=== PATIENT | female | born 1970 | race Caucasian/White ===

== ENCOUNTER 2018-08-04 20:20 | Emergency (ER) | payer BC, SELFPAY ==
[2018-08-04 20:23] VITALS: BP 118/79; PULSE 101; RESP 20; TEMP 36.7; O2SAT 99; BMI 43.0
[2018-08-04 20:53] LABS: Absolute Lymphocyte Count 2.86 X10^3/ul (0.83-4.51); Basophil# 0.02 X10^3/uL; Basophil% 0.2 % (0-1); Eosinophil# 0.15 X10^3/uL; Eosinophils% 1.8 % (0-5); Hematocrit 41.7 % (37-47); Hemoglobin 13.8 g/dl (12.0-15.0); Lymphocyte # 2.86 X10^3/ul (4.0); Lymphocyte % 33.8 % (19-41); Mean Corp Hgb Conc 33.1 g/gl (32-36); Mean Corpuscular Hgb 29.1 pg (27.0-32.0); Mean Corpuscular Volume 87.8 fL (81-99); Mean Platelet Vol. 11.1 fl (6.2-12.0); Monocyte# 0.43 X10^3/uL; Monocyte% 5.1 % (0-10); Neutrophil # 4.98 X10^3/uL (2.7-7.7); POSITIVE COUNT NO; POSITIVE DIFFERENTIAL NO; POSITIVE MORPHOLOGY NO; Platelet Count 288 K/mm3 (150-450); RBC Distribution Width CV 13.7 % (11.6-14.6); RBC Distribution Width SD 44.2 fl (35.1-43.9); Red Blood Count 4.75 M/mm3 (4.2-5.4); White Blood Count 8.5 K/mm3 (4.4-11.0)
[2018-08-04 21:00] LABS: Color, Urine Yellow (Yellow); Glucose, Dipstick Normal (Normal); Ketone-Dipstick Negative (Negative); Leukocyte Esterase-Dipstick 25 /ul (Negative); Nitrite-Dipstick Negative (Negative); Occult Blood-Urine 10 /ul (Negative); Protein-Dipstick 30 mg/dl (Negative); Urine Bilirubin Dipstick Negative (Negative); Urine Clarity Clear (Clear); Urine Urobilinogen Normal (Normal)
[2018-08-04 21:08] LABS: AST(SGOT) 14 U/L (15-37); Alanine Aminotransfer ALT/SGPT 18 U/L (13-56); Albumin, Serum 3.8 g/dL (3.2-5.0); Alkaline Phosphatase 90 U/L (45-117); Anion Gap 8 (5-15); BUN 11 mg/dL (7-18); BUN/Creat Ratio 10.8 RATIO (10-20); Calcium,Total 8.7 mg/dL (8.5-10.1); Chloride 106 mmol/L (98-107); Creatinine, Serum 1.02 mg/dL (0.55-1.02); EST Glomerular Filtration Rate 62 mL/min (>60); Est Glom Filt Rate - Afr Amer 75 mL/min (>60); Estimated Creatinine Clearance 59.51 ml/min; Globulin 3.8 g/dL (2.2-4.2); Glucose 104 mg/dL (74-106); Potassium 3.5 mmol/L (3.5-5.1); Protein, Total 7.6 g/dL (6.4-8.2); Sodium Level 140 mmol/L (136-145)
[2018-08-04 21:11] LABS: Bacteria RARE /hpf (None Seen); Mucous, Urine RARE /hpf (<or=2+); Red Blood Cells-Urine 0-5 SEEN /hpf (0-5); Squamous Epithelial Cells - UA 0-5 SEEN /hpf (5-10); White Blood Cells 5-10 SEEN /hpf (0-5)
[2018-08-04] MEDS: Ketorolac 30 MG/ML Syringe IV (21:49)
[2018-08-04 22:21] VITALS: RESP 16; O2SAT 98
[2018-08-04] MEDS: Morphine 4 MG/ML Syringe IV (22:26)
--- NOTE | 2018-08-04 22:43 | ED.VISSUMM ---
- ER Visit Summary Date of Service: 08/04/18 Chief Complaint: Right flank pain History of Present Illness: The patient is a 47 F who presents with right flank pain. Started a month ago. She has had this intermittently. She was seen at [facility] with similar symptoms. She was found to have no infection or kidney stones. She was discharged and she actually followed up with a urologist without any specific diagnosis. She continues to have this pain. She has had nausea and vomiting today. She tries ibuprofen but it does not work. She states nothing helps for the pain. Physical Examination: Vital signs reviewed. HEENT exam unremarkable. Heart is regular rate and rhythm without murmurs. Lungs are clear to auscultation. Abdomen is soft and nontender. She does have right flank tenderness to palpation. Extremities reveal no edema. Skin exam normal. Neurologic exam normal. Test Results: Her studies are unremarkable. Urinalysis negative for infection or blood. Emergency Department Course and Treatment: Patient was given Toradol but that did not help her pain. Morphine helped a little bit. This could be musculoskeletal. I will give her Dolobid. She will need to follow-up with her PCP for further testing Treatment Plan: [] Disposition: Discharge Impression: Right flank pain This note was generated with [employer] dictation software. It may contain incorrect words, spelling, and punctuation that were not noted in review of the chart prior to signing ED Disposition - Plan for ED Patient: Chief Complaint: Flank Pain Referrals: Byron Enriquez MD [Primary Care Provider] -
--- NOTE | 2018-08-04 22:46 | ED.DEP ---
ED Disposition - Plan for ED Patient: Disposition: Home or Assisted Living Chief Complaint: Flank Pain Instructions: ED Flank Pain Uncertain Cause Prescriptions: Diflunisal [Dolobid] 500 mg PO TID #20 tab Referrals: Byron Enriquez MD [Primary Care Provider] -
[2018-08-04 23:20] VITALS: PULSE 89; RESP 16; O2SAT 98
== END 2018-08-04 23:21 | disposition home or self-care (01) ==
PROVIDERS: Emergency Provider Emergency Medicine; Family Provider Family Medicine; PCP Family Medicine
DX: R10.9 Unspecified abdominal pain (principal); R11.2 Nausea with vomiting, unspecified
CPT/HCPCS: 80053; 81001; 85025; 96374; 96375; 99283; A4216

== ENCOUNTER → 2018-10-26 10:39 | Outpatient (CLI) | payer BC, SELFPAY ==
--- NOTE | 2018-10-26 | BRBX_PTH ---
PATIENT: NIDA RUEDA LOC: [facility] U#:[id number] AGE/SX: 55/F ROOM: RE10/26/[address]: Dr. Cherise Brandt MD : 1970 BED: DIS: SPEC #: [id number] RECD: 10/26/18 13:30 STATUS: [place] RE #: [id number] BRIDGER: 10/26/18 00:[address]: Cherise Brandt DEPT: SURGICAL PATHOLOGY RECD BY: Larry Delacruz ENTERED: 10/26/18 13:31 SP TYPE: BREAST BX OTHR DR: Dr. Byron Enriquez MD Tissues: Right breast, NOS Procedures: Surgery Specimen Level IV HEADER OPERATION: Right breast stereotactic biopsy PRE-OP DIAGNOSIS: Right breast calcifications TISSUE SUBMITTED: Right breast core tissue ISCHEMIC TIME: 2 minutes FIXATION TIME: 8.5 hours MICROSCOPIC DIAGNOSIS Right breast, stereotactic core biopsy: Fibrocystic changes and intraductal hyperplasia without atypia. Focal microcalcifications. Negative for malignancy. SJ:ny 10/27/18 COMMENT Correlation with clinical, radiologic findings and appropriate follow up are necessary. Case has been reviewed in consultation with Dr. Jaramillo who concurs with the above diagnosis. IDC:AM MICROSCOPIC DESCRIPTION Slides are reviewed. GROSS DESCRIPTION Received is one container labeled with the patient's name and not further designated. The specimen consists of multiple irregular and elongated fragments of stevens-white soft tissue that in aggregate measure 5.5 x 3 x 0.3 cm. The specimen is totally submitted in two cassettes. / AM:ny 10/26/18 TC:5 CPT: 54260
--- NOTE | 2018-10-26 20:02 | OP.PCM_ITS ---
Report of Operation Date of Procedure: 10/26/18 Pre-Operative Diagnosis: abnormal calcifications in right breast mammograms Post-Operative Diagnosis: same Surgery/Procedure Performed:: right stereotactic breast biopsy Description of Surgical Findings:: faint calcifications right breast, deep Specimen's removed: right breast tissue Estimated Blood Loss (mL): < 5 Fluids Replaced: none Description of Procedure: After informed consent was given, the patient was brought into the breast biopsy suite. Appropriate time out protocol was followed, she was then placed in the prone position on the stereotactic biopsy table. The patient?s right breast was then placed in the opening at the head of the table. A explosive ordnance disposal technician compression mammogram was then obtained in the lateral view. The suspicious radiological lesion was then identified. Stereo pictures of the lesion were then taken for XYZ coordinates. The Mammotome biopsy stylus was then positioned where it would be entering into the patient?s breast. The skin at this site was then cleansed with a surgical skin preparation. The skin and subcutaneous tissues at this site were then infiltrated with 1% xylocaine. A small skin incision was made with an 11 blade scalpel. The biopsy stylus was then positioned into the patient?s breast at the proper coordinates of depth. Using the Mammotome vacuum-assist device, several core samples of breast tissue were obtained. A specimen mammogram was the obtained and revealed that the calcifications were within the specimen. A hemostatic marker clip was then placed into the biopsy cavity and a explosive ordnance disposal technician film revealed that it was properly deployed. The patient was then placed in the supine position and pressure was applied to the breast until no active bleeding was noted. Steristrips were applied to reapproximate the skin. A unilateral mammogram in the CC and MLO view were then taken which revealed that the marker clip was in the same area as the previous suspicious lesion. The patient tolerated the procedure well and was discharged from the breast biopsy suite in good condition. - Complications none noted
--- OUTSIDE RECORDS SUMMARY | 2018-12-19 16:00 | XMS RPT_ITS ---
:1970 Author Organization OH[facility] Care Team Providers Name Role Phone BELTRAN TYLER ([facility]) Attending Unavailable YI BOLTON Referring Unavailable BELTRAN TYLER ([facility]) Referring Unavailable MARTHA PASTOR ([facility]) Attending Unavailable YI BOLTON Attending Unavailable XUAN JULIEN Attending Unavailable YI BOLTON Referring Unavailable YI BOLTON Attending Unavailable BELTRAN TYLER (RADIOPHARMACIST) Referring Unavailable YI BOLTON Referring Unavailable YI BOLTON Referring Unavailable CHERISE BRANDT Attending Unavailable YI BOLTON Referring Unavailable CHERISE BRANDT Attending Unavailable YI BOLTON Referring Unavailable YI BOLTON Referring Unavailable ADALGISA LACKEY MD Admitting Unavailable ADALGISA LACKEY MD Attending Unavailable ADALGISA LACKEY MD Primary Care Unavailable YI BOLTON Consulting Unavailable PROVIDER, UNKNOWN Consulting Unavailable ARIEL YAÑEZ DO Admitting Unavailable ARIEL YAÑEZ DO Attending Unavailable YI BOLTON Referring Unavailable ARIEL YAÑEZ DO Primary Care Unavailable YI BOLTON Consulting Unavailable PROVIDER, UNKNOWN Consulting Unavailable Wendy Whiting Attending Unavailable Yi Bolton Referring Unavailable Yi Bolton Primary Care Unavailable Ritchie Betancourt Attending Unavailable Cherise Brandt Attending Unavailable Yi Bolton Primary Care Unavailable PROBLEMS PROBLEMS DATE TYPE CONDITION / CODE ATTENDING STATUS SOURCE 10/07/2018 Active Other abnormal and NA Active [facility] inconclusive [facility] findings on [place] diagnostic imaging Repository of breast / R92.8(ICD-10) 09/21/2018 Active Frequency of NA Active [facility] micturition / Clinic Main R35.0(ICD-10) [place] Repository 09/21/2018 Active Dysuria / NA Active [facility] R30.0(ICD-10) Clinic Main [place] Repository 09/17/2018 Active Encounter for NA Active [facility] other screening Clinic Main for malignant [place] neoplasm of breast Repository / Z12.39(ICD-10) 07/23/2018 Active Unknown / XUAN JULIEN Active [facility] UNK(Unknown) ARIEL Clinic Main [place] Repository 07/07/2018 Admitting Urinary tract OMRAN, YASSER Active [facility] Diagnosis infection, site [facility] not specified / Hospital N390(ICD-10) Repository 07/07/2018 Principle Urinary tract OMRAN, YASSER Active [facility] Diagnosis infection, site [facility] not specified / Hospital N390(ICD-10) Repository 03/11/2018 Active Other fatigue / NA Active [facility] R53.83(ICD-10) Clinic Main [place] Repository 03/11/2018 Active Gastro-esophageal NA Active [facility] reflux disease [facility] with esophagitis / [place] K21.0(ICD-10) Repository 03/11/2018 Active Encounter for NA Active [facility] screening for [facility] Main lipoid disorders / [place] Z13.220(ICD-10) Repository PROCEDURES PROCEDURES No Procedure Records FoundRESULTS RESULTS PROGRESS Observed: 10/30/2018 Status: COMPLETED Source: [place] 12:48 PM [facility] REPOSITORY HNO ID: [id number] Author: Cherise Brandt Service: (none) Author Type: Physician Type: Progress Notes Filed: 10/30/2018 12:51 PM Note Text: Price is s/p right stereotactic guided breast biopsy done on 10/26/18 intraductal hyperplasia without atypia Pathology reveals: fibrocystic changes and intraductal hyperplasia without atypia, focal microcalcifications, no evidence of malignancy Patient denies any problems. PMH/PSH - unchanged from previous note Review of systems: denies fevers Examination: wound is healing well, no evidence of infection Ecchymoses present, no hematoma Impression:s/p right stereotactic guided breast biopsy done on 10/26/18 intraductal hyperplasia without atypia Plan: I have explained to patient that she will require follow up with repeat right breast mammograms in 6 months. After radiological studies are done, she will follow up with me in the clinic for examination. Follow up with me sooner if worsening signs/symptoms. Patient to return to her primary physician for medical care. I have answered all of patient's questions and she has no further questions. CNOV Observed: 10/30/2018 Status: COMPLETED Source: [place] 10:40 AM [facility] REPOSITORY Office Visit (JAVIER) MARYBETHRIANELSON Malloy ([id number]) 1970 F Date Time Provider Department 10/30/18 10:40 AM CHERISE BRANDT During your visit today, we recorded the following information about you: Cherise Brandt MD 10/30/2018 12:51 PM Signed Price is s/p right stereotactic guided breast biopsy done on 10/26/18 intraductal hyperplasia without atypia Pathology reveals: fibrocystic changes and intraductal hyperplasia without atypia, focal microcalcifications, no evidence of malignancy Patient denies any problems. PMH/PSH - unchanged from previous note Review of systems: denies fevers Examination: wound is healing well, no evidence of infection Ecchymoses present, no hematoma Impression:s/p right stereotactic guided breast biopsy done on 10/26/18 intraductal hyperplasia without atypia Plan: I have explained to patient that she will require follow up with repeat right breast mammograms in 6 months. After radiological studies are done, she will follow up with me in the clinic for examination. Follow up with me sooner if worsening signs/symptoms. Patient to return to her primary physician for medical care. I have answered all of patient's questions and she has no further questions. Referring Provider: YI BOLTON [[id number]] Allergies As of Date: 10/30/2018 (No Known Allergies) Date Reviewed: 10/30/2018 Reviewed by: Cherise Brandt - Fully Assessed Reason for Visit: Post Op [174] Primary Visit Diagnosis:Intraductal hyperplasia without atypia of right breast [N60.91] Order(s):[facility] [0835425] Order #: [id number] FUTURE Prescriptions as of 10/30/2018 Sig: OMEPRAZOLE 20 MG CAPSULE,HORTENCIA* Take 1 capsule by mouth daily* ALPRAZOLAM 0.25 MG TABLET Take 1 tablet by mouth three * CHOLECALCIFEROL (VITAMIN D3) * Take 1 capsule by mouth once * CITALOPRAM 40 MG TABLET 1 tablet once daily. Problem List As Of Date 10/30/2018 Noted Resolved SKIN DISORDERS NEC [L98.8] INVALID FOR* ADJUSTMENT DISORDER WITH DEPRESSED MOOD [F43.21]INVALID FOR* Panic attack [F41.0] INVALID FOR* Anxiety [F41.9] INVALID FOR* Mammographic microcalcification [R92.0] INVALID FOR* Complete tear of right rotator cuff [M75.121] INVALID FOR* Obesity, Class III, BMI 40-49.9 (morbid obesity*INVALID FOR* Acute pain of right shoulder [M25.511] INVALID FOR* Weakness of shoulder [R29.898] INVALID FOR* Kidney stones [N20.0] INVALID FOR* Vitamin D deficiency [E55.9] INVALID FOR* Follow-up and Disposition History Recorded Encounter Status:Closed by MD CHERISE BRANDT on 10/30/18 OPERATIVE REPORT Observed: 10/26/2018 Status: F Source: [place] 8:05 PM [facility] REPOSITORY [facility] Medical Records Department [address] [place] [address] Operative Report 10/26/182000 MR#: [id number] Acct: [id number] Name: PRICE CARDENAS Rep #: [id number] : 1970 48 From: Cherise Brandt MD PCP: Mina TURNER,Yi Status: REG CLI Y Location: [facility] Report of Operation Date of Procedure: 10/26/18 Pre-Operative Diagnosis: abnormal calcifications in right breast mammograms Post-Operative Diagnosis: same Surgery/Procedure Performed:: right stereotactic breast biopsy Description of Surgical Findings:: faint calcifications right breast, deep Specimen's removed: right breast tissue Estimated Blood Loss (mL): < 5 Fluids Replaced: none Description of Procedure: After informed consent was given, the patient was brought into the breast biopsy suite. Appropriate time out protocol was followed, she was then placed in the prone position on the stereotactic biopsy table. The patient s right breast was then placed in the opening at the head of the table. A user support analyst supervisor compression mammogram was then obtained in the lateral view. The suspicious radiological lesion was then identified. Stereo pictures of the lesion were then taken for XYZ coordinates. The Mammotome biopsy stylus was then positioned where it would be entering into the patient s breast. The skin at this site was then cleansed with a surgical skin preparation. The skin and subcutaneous tissues at this site were then infiltrated with 1% xylocaine. A small skin incision was made with an 11 blade scalpel. The biopsy stylus was then positioned into the patient s breast at the proper coordinates of depth. Using the Mammotome vacuum-assist device, several core samples of breast tissue were obtained. A specimen mammogram was the obtained and revealed that the calcifications were within the specimen. A hemostatic marker clip was then placed into the biopsy cavity and a user support analyst supervisor film revealed that it was properly deployed. The patient was then placed in the supine position and pressure was applied to the breast until no active bleeding was noted. Steristrips were applied to reapproximate the skin. A unilateral mammogram in the CC and MLO view were then taken which revealed that the marker clip was in the same area as the previous suspicious lesion. The patient tolerated the procedure well and was discharged from the breast biopsy suite in good condition. - Complications none noted 10/26/182004 <Electronically signed by Cherise Brandt MD> Date Cherise Brandt MD CC: Cherise Brandt MD; Yi Bolton MD Signed BREAST BIOPSY Observed: 10/26/2018 Status: F Source: [place] ([facility]) 12:00 AM [facility] REPOSITORY Patient: PRICE CARDENAS : 1970 (48/F) Acct Num: [id number] Phys: Rikki TURNERCherise Unit Num: [id number] Loc: [facility] Specimen: [id number] Received: 10/26/18 - 1330 Spec Type: BREAST BX TISSUES 1 TISSUES: Right breast, NOS COMMENT Correlation with clinical, radiologic findings and appropriate follow up are necessary. Case has been reviewed in consultation with Dr. Jaramillo who concurs with the above diagnosis. IDC:AM GROSS DESCRIPTION Received is one container labeled with the patient's name and not further designated. The specimen consists of multiple irregular and elongated fragments of stevens-white soft tissue that in aggregate measure 5.5 x 3 x 0.3 cm. The specimen is totally submitted in two cassettes. / AM:ny 10/26/18 TC:5 CPT: 61412 HEADER OPERATION: Right breast stereotactic biopsy PRE-OP DIAGNOSIS: Right breast calcifications TISSUE SUBMITTED: Right breast core tissue ISCHEMIC TIME: 2 minutes FIXATION TIME: 8.5 hours MICROSCOPIC DESCRIPTION Slides are reviewed. MICROSCOPIC DIAGNOSIS Right breast, stereotactic core biopsy: Fibrocystic changes and intraductal hyperplasia without atypia. Focal microcalcifications. Negative for malignancy. SJ:ny 10/27/18 Signed Jhon Wang 10/27/18 <signature on file> Performed By: #### PBRBX #### [facility] [address] [place], [address] PROGRESS Observed: 10/12/2018 Status: COMPLETED Source: [place] 2:[address] [facility] REPOSITORY HNO ID: [id number] Author: Cherise Brandt Service: (none) Author Type: Physician Type: Progress Notes Filed: 10/16/2018 9:23 AM Note Text: Price Cardenas 1970 REFERRING PHYSICIAN: Yi Bolton MD CHIEF COMPLAINT: Consult (Consult ) HPI: The patient is a 48 year old female presents with abnormal right breast mammograms. It is described as grouped pleomorphic calcifications in the right breast at 11 oclock, middle depth She had undergone previous left breast stereotactic biopsy x 2 in Oct 2012 at [facility] - pathology - fibrocystic changes with dense stromal fibrosis, microcysts, apocrine metaplasia, and microcalcifications. Small area of fibroadenomatoid change and for the second - benign breast tissue withbdense fibrosis and fibroadenomatoid changes. Microcalcifications are identified. No malignancy is seen. Patient denies nothing any palpable breast masses. Denies nipple discharge. Denies breast pain No breast cancer or ovarian cancer known in family. PAST MEDICAL HISTORY Diagnosis Date - Adjustment disorder with depressed mood 10/08/2007 - Anxiety - Complete tear of right rotator cuff 04/03/2016 - Kidney stone on right side 07/09/2018 [facility] - Non morbid obesity 04/18/2016 PAST SURGICAL HISTORY Procedure Laterality Date - LAP CHOLECYSTECT/CHOLANGIOGRAPHY 03-12-07 - LIGATE FALLOPIAN TUBE Tubal ligation - NOVASURE ABLATION WO HYSTREOSCOPY 2010 - REMOVE TONSILS/ADENOIDS,<12 Y/O T/A (under age 12 years) - REPAIR COMPL ROTATOR CUFF AVULSN,CHR Right 04/19/2016 Open SAD and RCR Left breast stereotactic biopsy x 2 Current Outpatient Prescriptions: omeprazole (PRILOSEC) 20 mg capsule Take 1 capsule by mouth daily before breakfast. 1/2 hr before meal. ALPRAZolam (XANAX) 0.25 mg tablet Take 1 tablet by mouth three times daily as needed for Anxiety for up to 90 days. Cholecalciferol, Vitamin D3, 1,000 unit cap Take 1 capsule by mouth once daily. citalopram (CELEXA) 40 mg tablet 1 tablet once daily. ALLERGIES: Patient has no known allergies. PERSONAL HISTORY: Social History Marital status: Spouse name: Yi Years of education: 12 Number of children: 3 Occupational History Occupation Employer Comment [employer] Social History Main Topics Smoking status: Never Smoker Smokeless tobacco: Never Used Alcohol use: Yes Comment: rarely Drug use: No Sexual activity: Yes Partners with: Male control/protection: Surgical Comment: bps FAMILY HISTORY Problem Relation Age of Onset - Allergies Mother - None Father unknown to pt - Hypertension Maternal Grandmother - Coronary Artery Disease Maternal Grandmother REVIEW OF SYSTEMS: General: The patient denies fatigue, denies weight loss, denies weight gain, denies feeling hot, and denies feelings of cold. Eyes: The patient denies glaucoma, denies eye injury/surgery, wears glasses or contacts. Ear/Nose/Throat: The patient denies allergies, denies hayfever, denies ear infections, and denies bloody noses. Cardiovascular: denies chest pain, denies history of NE, denies heart problems Respiratory: The patient denies tuberculosis, denies pneumonia, denies frequent cough, denies shortness of breath, and denies coughing up blood. Gastrointestinal: denies difficulty swallowing, denies abdominal pain, denies blood in stools, denies hematemesis Kidney/Bladder: has had kidney stones, denies blood in urine. Skin: The patient denies a history of skin cancer, denies bleeding/changing moles, and denies a history of skin rash. Neurologic: denies history of CVA, denies headaches Psychiatric: The patient denies psychiatric medications, notes depression, and denies voices. Endocrine: The patient denies thyroid disorders, denies diabetes, and denies hormonal problems. Hematologic: The patient denies a history of bruising, denies bleeding, and denies anemia. Infections: The patient denies a history of measles and mumps, denies rheumatic fever, and denies sexually transmitted diseases. Musculoskeletal: denies chronic back or joint pain, denies arthritis, denies gout Obstetrical: menarche 14, , first 18, breast feeding denies, BCP use initially at age 17 for about a year, norplant use for 3 y, ablation causing menopause at age 38 PHYSICAL EXAMINATION: General: The patient is 48 year old female, well nourished, well hydrated in no acute distress. The patient is oriented to time, place, and person. VITALS: Ht: 5'4 Wt: 245# Head ? Normocephalic. EOM intact with sclera clear and no icterus noted. Wearing glasses. Mouth with mucus membranes moist. Neck - supple with no jugular venous distention noted. Trachea is midline. No carotid bruits noted. No thyroid enlargement or thyroid nodules detected. No masses noted. Chest/breast ? no asymmetry of breasts noted, no suspicious skin lesions noted, no nipple discharge and both nipples everted, nodular dense breast tissue palpated bilaterally, no suspicious lesions palpated Lungs ? clear to auscultation. Normal breath sounds. No rales/rhonchi/wheezing noted. No labored breathing noted, such as retractions. No cough heard. Heart ? normal S1 and S2 auscultated. No rubs/clicks/murmurs noted. Regular rate. Abdomen ? soft and benign. Normal bowel sounds. No abdominal bruits noted. Difficult to determine if any masses or organomegaly due to body habitus. Extremities ? no calf tenderness noted. No pitting edema noted. Skin ? normal skin integrity. Lymph ? no cervical adenopathy detected, no supraclavicular adenopathy detected, no axillary adenopathy detected Neurological ? gait normal, no focal deficits noted. Psych ? calm and appropriate RADIOLOGIC STUDIES: As Noted Assessment IMPRESSION: abnormal right breast mammographic calcifications PLAN: I have discussed the above with the patient. I have offered right breast stereotactic biopsy to be done at [facility]. I have explained the procedure to the patient. I have counseled the patient as to the risks of the procedure, including but not limited to: infection, bleeding, injury to any blood vessels/nerves, scar tissue, wound infections, complications of anesthesia, etc. ? the patient understands. The patient wishes to proceed. Patient wishes valium prior to the procedure for anxiety. This will be provided. I have answered all questions to the patient?s satisfaction and the patient has no further questions. . Diagnoses: (R92.8) Abnormal mammogram (primary encounter diagnosis) (E66.01) Morbid obesity (HCC) (F41.9) Anxiety Return to Clinic: The patient is instructed to follow-up with me after the procedure for discussion of the results and wound check. Cherise Brandt MD CNOV Observed: 10/12/2018 Status: COMPLETED Source: [place] 2:00 PM [facility] REPOSITORY Office Visit ([facility]) PRICE CARDENAS ([id number]) 1970 F Date Time Provider Department 10/12/18 2:00 PM CHERISE BRANDT During your visit today, we recorded the following information about you: Cherise Brandt MD 10/16/2018 9:23 AM Signed Price Cardenas 1970 REFERRING PHYSICIAN: Yi Bolton MD CHIEF COMPLAINT: Consult (Consult ) HPI: The patient is a 48 year old female presents with abnormal right breast mammograms. It is described as grouped pleomorphic calcifications in the right breast at 11 oclock, middle depth She had undergone previous left breast stereotactic biopsy x 2 in Oct 2012 at [facility] - pathology - fibrocystic changes with dense stromal fibrosis, microcysts, apocrine metaplasia, and microcalcifications. Small area of fibroadenomatoid change and for the second - benign breast tissue withbdense fibrosis and fibroadenomatoid changes. Microcalcifications are identified. No malignancy is seen. Patient denies nothing any palpable breast masses. Denies nipple discharge. Denies breast pain No breast cancer or ovarian cancer known in family. PAST MEDICAL HISTORY Diagnosis Date - Adjustment disorder with depressed mood 10/08/2007 - Anxiety - Complete tear of right rotator cuff 04/03/2016 - Kidney stone on right side 07/09/2018 [place] - Non morbid obesity 04/18/2016 PAST SURGICAL HISTORY Procedure Laterality Date - LAP CHOLECYSTECT/CHOLANGIOGRAPHY 03-12-07 - LIGATE FALLOPIAN TUBE Tubal ligation - NOVASURE ABLATION WO HYSTREOSCOPY 2010 - REMOVE TONSILS/ADENOIDS,<12 Y/O T/A (under age 12 years) - REPAIR COMPL ROTATOR CUFF AVULSN,CHR Right 04/19/2016 Open SAD and RCR Left breast stereotactic biopsy x 2 Current Outpatient Prescriptions: omeprazole (PRILOSEC) 20 mg capsule Take 1 capsule by mouth daily before breakfast. 1/2 hr before meal. ALPRAZolam (XANAX) 0.25 mg tablet Take 1 tablet by mouth three times daily as needed for Anxiety for up to 90 days. Cholecalciferol, Vitamin D3, 1,000 unit cap Take 1 capsule by mouth once daily. citalopram (CELEXA) 40 mg tablet 1 tablet once daily. ALLERGIES: Patient has no known allergies. PERSONAL HISTORY: Social History Marital status: Spouse name: Yi Years of education: 12 Number of children: 3 Occupational History Occupation Employer Comment [employer] Social History Main Topics Smoking status: Never Smoker Smokeless tobacco: Never Used Alcohol use: Yes Comment: rarely Drug use: No Sexual activity: Yes Partners with: Male control/protection: Surgical Comment: bps FAMILY HISTORY Problem Relation Age of Onset - Allergies Mother - None Father unknown to pt - Hypertension Maternal Grandmother - Coronary Artery Disease Maternal Grandmother REVIEW OF SYSTEMS: General: The patient denies fatigue, denies weight loss, denies weight gain, denies feeling hot, and denies feelings of cold. Eyes: The patient denies glaucoma, denies eye injury/surgery, wears glasses or contacts. Ear/Nose/Throat: The patient denies allergies, denies hayfever, denies ear infections, and denies bloody noses. Cardiovascular: denies chest pain, denies history of NE, denies heart problems Respiratory: The patient denies tuberculosis, denies pneumonia, denies frequent cough, denies shortness of breath, and denies coughing up blood. Gastrointestinal: denies difficulty swallowing, denies abdominal pain, denies blood in stools, denies hematemesis Kidney/Bladder: has had kidney stones, denies blood in urine. Skin: The patient denies a history of skin cancer, denies bleeding/changing moles, and denies a history of skin rash. Neurologic: denies history of CVA, denies headaches Psychiatric: The patient denies psychiatric medications, notes depression, and denies voices. Endocrine: The patient denies thyroid disorders, denies diabetes, and denies hormonal problems. Hematologic: The patient denies a history of bruising, denies bleeding, and denies anemia. Infections: The patient denies a history of measles and mumps, denies rheumatic fever, and denies sexually transmitted diseases. Musculoskeletal: denies chronic back or joint pain, denies arthritis, denies gout Obstetrical: menarche 14, , first 18, breast feeding denies, BCP use initially at age 17 for about a year, norplant use for 3 y, ablation causing menopause at age 38 PHYSICAL EXAMINATION: General: The patient is 48 year old female, well nourished, well hydrated in no acute distress. The patient is oriented to time, place, and person. VITALS: Ht: 5'4 Wt: 245# Head ? Normocephalic. EOM intact with sclera clear and no icterus noted. Wearing glasses. Mouth with mucus membranes moist. Neck - supple with no jugular venous distention noted. Trachea is midline. No carotid bruits noted. No thyroid enlargement or thyroid nodules detected. No masses noted. Chest/breast ? no asymmetry of breasts noted, no suspicious skin lesions noted, no nipple discharge and both nipples everted, nodular dense breast tissue palpated bilaterally, no suspicious lesions palpated Lungs ? clear to auscultation. Normal breath sounds. No rales/rhonchi/wheezing noted. No labored breathing noted, such as retractions. No cough heard. Heart ? normal S1 and S2 auscultated. No rubs/clicks/murmurs noted. Regular rate. Abdomen ? soft and benign. Normal bowel sounds. No abdominal bruits noted. Difficult to determine if any masses or organomegaly due to body habitus. Extremities ? no calf tenderness noted. No pitting edema noted. Skin ? normal skin integrity. Lymph ? no cervical adenopathy detected, no supraclavicular adenopathy detected, no axillary adenopathy detected Neurological ? gait normal, no focal deficits noted. Psych ? calm and appropriate RADIOLOGIC STUDIES: As Noted Assessment IMPRESSION: abnormal right breast mammographic calcifications PLAN: I have discussed the above with the patient. I have offered right breast stereotactic biopsy to be done at [facility]. I have explained the procedure to the patient. I have counseled the patient as to the risks of the procedure, including but not limited to: infection, bleeding, injury to any blood vessels/nerves, scar tissue, wound infections, complications of anesthesia, etc. ? the patient understands. The patient wishes to proceed. Patient wishes valium prior to the procedure for anxiety. This will be provided. I have answered all questions to the patient?s satisfaction and the patient has no further questions. . Diagnoses: (R92.8) Abnormal mammogram (primary encounter diagnosis) (E66.01) Morbid obesity (HCC) (F41.9) Anxiety Return to Clinic: The patient is instructed to follow-up with me after the procedure for discussion of the results and wound check. Cherise Brandt MD Referring Provider: YI BOLTON [[id number]] Allergies As of Date: 10/12/2018 (No Known Allergies) Date Reviewed: 10/12/2018 Reviewed by: Cherise Brandt - Fully Assessed Reason for Visit: Consult [173] Cmt: Consult Primary Visit Diagnosis:Abnormal mammogram [R92.8] Other Visit Diagnoses:Morbid obesity (HCC) [E66.01] Anxiety [F41.9] Order(s):[] diazePAM (VALIUM) 5 mg tabletTake 1 tablet by mouth every 6 hours as needed for Sedation (take 1-2 tablets about 1 hour prior to the procedure) for up to 1 day.Disp: 2 tabletRfl: 0 Prescriptions as of 10/12/2018 Sig: OMEPRAZOLE 20 MG CAPSULE,HORTENCIA* Take 1 capsule by mouth daily* ALPRAZOLAM 0.25 MG TABLET Take 1 tablet by mouth three * CHOLECALCIFEROL (VITAMIN D3) * Take 1 capsule by mouth once * CITALOPRAM 40 MG TABLET 1 tablet once daily. DIAZEPAM 5 MG TABLET Take 1 tablet by mouth every * Problem List As Of Date 10/12/2018 Noted Resolved SKIN DISORDERS NEC [L98.8] INVALID FOR* ADJUSTMENT DISORDER WITH DEPRESSED MOOD [F43.21]INVALID FOR* Panic attack [F41.0] INVALID FOR* Anxiety [F41.9] INVALID FOR* Mammographic microcalcification [R92.0] INVALID FOR* Complete tear of right rotator cuff [M75.121] INVALID FOR* Obesity, Class III, BMI 40-49.9 (morbid obesity*INVALID FOR* Acute pain of right shoulder [M25.511] INVALID FOR* Weakness of shoulder [R29.898] INVALID FOR* Kidney stones [N20.0] INVALID FOR* Vitamin D deficiency [E55.9] INVALID FOR* Prescriptions ordered this encounter Disp Refills Start End DIAZEPAM 5 MG TABLET 2 ta* 0 10/12/2018 10/13/2018 Class: Print RX Route: ORAL Sig: Take 1 tablet by mouth every 6 hours as needed for Sedation (take 1-2 tablets about 1 hour prior to the procedure) for up to 1 day. Letter Text Department of General Surgery Dr Cherise Brandt [address] [place], [place] [address] 10/12/2018 TO WHOM IT MAY CONCERN: This is to confirm that Price Cardenas had an appointment and was seen at the [facility] in the Department of General Surgery by Dr Cherise Brandt on 10/12/2018 and may return to work. Sincerely yours, Dr Cherise Brandt Letter Text Encounter Status:Closed by MD CHERISE BRANDT on 10/16/18 CNCO Observed: 10/07/2018 Status: COMPLETED Source: [place] 2:07 PM [facility] REPOSITORY HNO ID: [id number] Author: Mammography Coordinator Service: (none) Author Type: Physician Type: Letter Filed: 10/08/2018 11:32 PM Note Text: October 07, 2018 PID: [id number] Price Cardenas [address] [address] Dear Ms. Cardenas, Your recent breast imaging exam on 10/07/2018 showed an abnormal area. At this time we recommend further evaluation. This does not necessarily mean that there is a serious problem in your breast, but it should not be ignored. Your mammogram demonstrates that you have dense breast tissue, which could hide abnormalities. Dense breast tissue, in and of itself, is a relatively common condition. Therefore, this information is not provided to cause undue concern; rather, it is to raise your awareness and promote discussion with your health care provider regarding the presence of dense breast tissue in addition to other risk factors. Please contact your physician as soon as possible to discuss the results of this exam and decide what the next steps in your medical care should be. If you have already been notified of these findings, please disregard this letter. Thank you for allowing us to help in meeting your health care needs. Sincerely, Dr. Suarez Interpreting Radiologist [facility] (Abnormal) [facility] RT Observed: 10/07/2018 Status: F Source: [place] 1:30 PM [facility] REPOSITORY * * *Final Report* * * DATE OF EXAM: Oct 07 2018 1:30PM [place] [id number] - [facility] RT / PROCEDURE REASON: Abnormal mammogram * * * * Physician Interpretation * * * * RESULT: #[id number] - [facility] UNILATERAL RIGHT DIGITAL DIAGNOSTIC MAMMOGRAM WITH CAD: 10/07/2018 HISTORY: Callback right / Abnormal Mammogram. RESULT: TECHNIQUE: The study was acquired using full field digital technology and interpreted from soft copy. Current study was also evaluated with a Computer Aided Detection (CAD). Comparison is made to exams dated: 09/17/2018 mammogram - [facility], 09/11/2017 mammogram, 06/24/2016 mammogram, and 11/30/2015 mammogram - [facility]. The tissue of right breast is heterogeneously dense. This may lower the sensitivity of mammography. Additional imaging reveals area of interest in the right breast on prior exam is not reproduced and presumably represents superimposed breast tissue. There are a grouped pleomorphic calcifications in the right breast at 11 o'clock middle depth. No other significant masses or calcifications are seen in the breast. IMPRESSION: SUSPICIOUS FINDING - BIOPSY SHOULD BE CONSIDERED The grouped pleomorphic calcifications in the right breast are suspicious of malignancy. A stereotactic biopsy is recommended. Jose Alfredo harley:10/07/2018 14:07:57 Pharmacist Technician(s): RT Christy(R)(M), [facility] letter sent: Abnormal Mammogram BI-RADS: 4 Suspicious finding - Biopsy should be considered Multiple national specialty organizations have released breast cancer screening guidelines for women at average risk for developing breast cancer - guidelines that are based on both evidence and opinion, yet differ on when to start and how often to screen for breast cancer. With representation from Breast Imaging, Internal Medicine, Women's Health, Family Medicine, and Medical/Surgical Oncology, the [facility] has carefully reviewed the data and reached the following consensus: 1) All women should engage in shared decision-making with their providers to decide when to start and how often to screen; 2) All women should have the opportunity to start screening mammography at age 40; 3) For women ages 45-55, we recommend annual screening mammograms; 4) For women ages 55 and over, we support both the transition from an annual to a biennial interval if this aligns more with patient's values and preferences, or continuation with annual screening; 5) All women should discuss with their providers when to stop screening mammograms. Harness Installer: Gideon Transcribe Date/Time: Oct 07 2018 1:30P Dictated by: JOSE ALFREDO SUAREZ MD This examination was interpreted and the report reviewed and electronically signed by: JOSE ALFREDO SUAREZ MD on Oct 07 2018 2:07PM EST [id number] PROGRESS Observed: 10/07/2018 Status: COMPLETED Source: [place] 1:[address] [facility] REPOSITORY HNO ID: [id number] Author: Ashley Ca Service: (none) Author Type: (none) Type: Progress Notes Filed: 10/07/2018 1:28 PM Note Text: Radiology Service Progress Note PATIENT NAME: Price Cardenas DATE OF SERVICE: October 07, 2018 TIME: 1:28 PM PATIENT IDENTITY VERIFICATION COMPLETED USING TWO (2) METHODS: Patient confirmed name verbally and Date of . PATIENT GENDER DATA: Female. status: : No status: NO. PATIENT RELEVANT IMPLANT DATA REVIEWED: Not Applicable RADIOLOGY DEPARTMENT: [facility] DATA: Not applicable SIGNED BY: Ashley Ca October 07, 2018 1:28 PM PROGRESS Observed: 09/21/2018 Status: COMPLETED Source: [place] 1:44 PM [facility] REPOSITORY HNO ID: [id number] Author: Edith Estrella Service: (none) Author Type: Nurse Practitioner Type: Progress Notes Filed: 09/21/2018 1:49 PM Note Text: Subjective HPI Pt present with c/o urinary frequency and right flank pain x 2 days. Denies fever, chills, dysuria, hematuria, back/abd pain. Reports recent hospitalization for obstructive kidney stone and secondary urosepsis. Passed another stone since then. Urine flow has been normal. Review of Systems Constitutional: Negative for chills and fever. Gastrointestinal: Negative for abdominal pain, constipation, diarrhea, nausea and vomiting. Genitourinary: Positive for flank pain and frequency. Negative for dysuria, hematuria and urgency. Musculoskeletal: Negative for back pain and myalgias. Objective Physical Exam Constitutional: She is oriented to person, place, and time and well-developed, well-nourished, and in no distress. No distress. Abdominal: There is no CVA tenderness. Neurological: She is alert and oriented to person, place, and time. Skin: Skin is warm and dry. She is not diaphoretic. BP 102/72 Pulse 69 Temp 36.8 ?C (98.2 ?F) (Left Tympanic) Resp 20 Wt 113.5 kg (250 lb 3.2 oz) SpO2 98% BMI 42.95 kg/m? .Patient presents with: uti symptoms: dysuria, frequency AND lower right back pain PAST MEDICAL HISTORY Diagnosis Date - Adjustment disorder with depressed mood 10/08/2007 - Anxiety - Complete tear of right rotator cuff 04/03/2016 - Kidney stone on right side 07/09/2018 P[place] - Non morbid obesity 04/18/2016 PAST SURGICAL HISTORY Procedure Laterality Date - ARTHROS SHLDR DX W/WO SYNV BX Right 04/19/2016 Right shoulder arthroscopy - LAP CHOLECYSTECT/CHOLANGIOGRAPHY 03-12-07 - LIGATE FALLOPIAN TUBE Tubal ligation - NOVASURE ABLATION WO HYSTREOSCOPY 2010 - REMOVE TONSILS/ADENOIDS,<12 Y/O T/A (under age 12 years) - REPAIR COMPL ROTATOR CUFF AVULSN,CHR Right 04/19/2016 Open SAD and RCR ALLERGIES Patient has no known allergies. MEDICATIONS omeprazole (PRILOSEC) 20 mg capsule Take 1 capsule by mouth daily before breakfast. 1/2 hr before meal. ALPRAZolam (XANAX) 0.25 mg tablet Take 1 tablet by mouth three times daily as needed for Anxiety for up to 90 days. citalopram (CELEXA) 40 mg tablet 1 tablet once daily. Cholecalciferol, Vitamin D3, 1,000 unit cap Take 1 capsule by mouth once daily. FAMILY HISTORY Problem Relation Age of Onset - Allergies Mother - None Father unknown to pt - Hypertension Maternal Grandmother - Coronary Artery Disease Maternal Grandmother Social History Substance Use Topics - Smoking status: Never Smoker - Smokeless tobacco: Never Used - Alcohol use Yes Comment: rarely ASSESSMENT/PLAN: 1. Urinary frequency - ICD9: 788.41, ICD10: R35.0 (primary diagnosis) acute - UA positive for mark esterase - trace - Send urine for culture - Patient education for prevention given - UA DIP, URINE (POC) - URINE CULTURE 2. Right flank pain - ICD9: 789.09, ICD10: R10.9 - URINE CULTURE Reviewed red flag SANDS requiring emergent evaluation. Pt verbalizes understanding. The patient is instructed to return or seek emergency treatment if symptoms become worse or with any acute change in condition. The patient verbalizes understanding and is in agreement with plan of care. Edith Estrella CNP CNOV Observed: 09/21/2018 Status: COMPLETED Source: [place] 1:00 PM [facility] REPOSITORY Office Visit (WSTR) PRICE CARDENAS ([id number]) 1970 F Date Time Provider Department 09/21/18 1:00 PM EDITH ESTRELLA [facility] During your visit today, we recorded the following information about you: Temperature Pulse Respiration Blood pressure 98.2 degrees 69/minute 20/minute 102/72 Weight 113.5 kg Edith Estrella APRN.CNP 09/21/2018 1:49 PM Signed Subjective HPI Pt present with c/o urinary frequency and right flank pain x 2 days. Denies fever, chills, dysuria, hematuria, back/abd pain. Reports recent hospitalization for obstructive kidney stone and secondary urosepsis. Passed another stone since then. Urine flow has been normal. Review of Systems Constitutional: Negative for chills and fever. Gastrointestinal: Negative for abdominal pain, constipation, diarrhea, nausea and vomiting. Genitourinary: Positive for flank pain and frequency. Negative for dysuria, hematuria and urgency. Musculoskeletal: Negative for back pain and myalgias. Objective Physical Exam Constitutional: She is oriented to person, place, and time and well-developed, well-nourished, and in no distress. No distress. Abdominal: There is no CVA tenderness. Neurological: She is alert and oriented to person, place, and time. Skin: Skin is warm and dry. She is not diaphoretic. BP 102/72 Pulse 69 Temp 36.8 ?C (98.2 ?F) (Left Tympanic) Resp 20 Wt 113.5 kg (250 lb 3.2 oz) SpO2 98% BMI 42.95 kg/m? .Patient presents with: uti symptoms: dysuria, frequency AND lower right back pain PAST MEDICAL HISTORY Diagnosis Date - Adjustment disorder with depressed mood 10/08/2007 - Anxiety - Complete tear of right rotator cuff 04/03/2016 - Kidney stone on right side 07/09/2018 [place] - Non morbid obesity 04/18/2016 PAST SURGICAL HISTORY Procedure Laterality Date - ARTHROS SHLDR DX W/WO SYNV BX Right 04/19/2016 Right shoulder arthroscopy - LAP CHOLECYSTECT/CHOLANGIOGRAPHY 03-12-07 - LIGATE FALLOPIAN TUBE Tubal ligation - NOVASURE ABLATION WO HYSTREOSCOPY 2010 - REMOVE TONSILS/ADENOIDS,<12 Y/O T/A (under age 12 years) - REPAIR COMPL ROTATOR CUFF AVULSN,CHR Right 04/19/2016 Open SAD and RCR ALLERGIES Patient has no known allergies. MEDICATIONS omeprazole (PRILOSEC) 20 mg capsule Take 1 capsule by mouth daily before breakfast. 1/2 hr before meal. ALPRAZolam (XANAX) 0.25 mg tablet Take 1 tablet by mouth three times daily as needed for Anxiety for up to 90 days. citalopram (CELEXA) 40 mg tablet 1 tablet once daily. Cholecalciferol, Vitamin D3, 1,000 unit cap Take 1 capsule by mouth once daily. FAMILY HISTORY Problem Relation Age of Onset - Allergies Mother - None Father unknown to pt - Hypertension Maternal Grandmother - Coronary Artery Disease Maternal Grandmother Social History Substance Use Topics - Smoking status: Never Smoker - Smokeless tobacco: Never Used - Alcohol use Yes Comment: rarely ASSESSMENT/PLAN: 1. Urinary frequency - ICD9: 788.41, ICD10: R35.0 (primary diagnosis) acute - UA positive for mark esterase - trace - Send urine for culture - Patient education for prevention given - UA DIP, URINE (POC) - URINE CULTURE 2. Right flank pain - ICD9: 789.09, ICD10: R10.9 - URINE CULTURE Reviewed red flag SANDS requiring emergent evaluation. Pt verbalizes understanding. The patient is instructed to return or seek emergency treatment if symptoms become worse or with any acute change in condition. The patient verbalizes understanding and is in agreement with plan of care. Edith Estrella CNP Referring Provider: SELF [[id number]] Allergies As of Date: 09/21/2018 (No Known Allergies) Date Reviewed: 09/21/2018 Reviewed by: Edyta Palomo Ma - Fully Assessed Reason for Visit: uti symptoms [Other] Cmt: dysuria, frequency AND lower right back pain Reason For Visit History Recorded Primary Visit Diagnosis:Urinary frequency [R35.0] Other Visit Diagnosis:Right flank pain [R10.9] Order(s):UA DIP, URINE (POC) [[id number]] Order #: [id number]. #:[id number] URINE CULTURE [SQURCUL] Order #: [id number] Prescriptions as of 09/21/2018 Sig: OMEPRAZOLE 20 MG CAPSULE,HORTENCIA* Take 1 capsule by mouth daily* ALPRAZOLAM 0.25 MG TABLET Take 1 tablet by mouth three * CITALOPRAM 40 MG TABLET 1 tablet once daily. CHOLECALCIFEROL (VITAMIN D3) * Take 1 capsule by mouth once * Patient not taking: Reported on 09/21/2018 Problem List As Of Date 09/21/2018 Noted Resolved SKIN DISORDERS NEC [L98.8] INVALID FOR* ADJUSTMENT DISORDER WITH DEPRESSED MOOD [F43.21]INVALID FOR* Panic attack [F41.0] INVALID FOR* Anxiety [F41.9] INVALID FOR* Mammographic microcalcification [R92.0] INVALID FOR* Complete tear of right rotator cuff [M75.121] INVALID FOR* Obesity, Class III, BMI 40-49.9 (morbid obesity*INVALID FOR* Acute pain of right shoulder [M25.511] INVALID FOR* Weakness of shoulder [R29.898] INVALID FOR* Kidney stones [N20.0] INVALID FOR* Vitamin D deficiency [E55.9] INVALID FOR* Encounter Status:Closed by EDITH ESTRELLA CNP on 09/21/18 Observed: 09/21/2018 Status: F Source: [place] URINE CULTURE 2:51 AM [facility] REPOSITORY Sp. Request/Comment: - Specimen received in preservative Culture Result - No growth (<1,000 CFU/ml) Performed By: #### URCUL #### [facility] [address] [place], [place] [address] CNCO Observed: 09/17/2018 Status: COMPLETED Source: [place] 2:23 PM [facility] REPOSITORY HNO ID: [id number] Author: Mammography Coordinator Service: (none) Author Type: Physician Type: Letter Filed: 09/21/2018 11:32 PM Note Text: September 17, 2018 PID: [id number] Price Cardenas [address] [address] Dear Ms. Cardenas, Your recent breast imaging exam on 09/17/2018 showed a possible finding that requires additional imaging studies for a complete evaluation. Most such findings are probably benign (not cancer). Please call [phone] or [phone] to schedule an appointment for your additional imaging if you have not already done so. Your mammogram demonstrates that you have dense breast tissue, which could hide abnormalities. Dense breast tissue, in and of itself, is a relatively common condition. Therefore, this information is not provided to cause undue concern; rather, it is to raise your awareness and promote discussion with your health care provider regarding the presence of dense breast tissue in addition to other risk factors. Your breast images and report will be kept on file here as part of your permanent medical record and are available for your continuing care. Thank you for allowing us to help in meeting your health care needs. Sincerely, Dr. Grey Interpreting Radiologist [facility] (Additional imaging) [facility] SCRE[facility] Observed: 09/17/2018 Status: F Source: [place] 8:34 AM [facility] REPOSITORY * * *Final Report* * * DATE OF EXAM: Sep 17 2018 8:34AM [facility] 0581 - [facility] SCREENING / PROCEDURE REASON: Encounter for other screening for malignant neoplasm of breast * * * * Physician Interpretation * * * * RESULT: #[id number] - [facility] SCREENING BILATERAL DIGITAL SCREENING MAMMOGRAM WITH CAD: 09/17/2018 HISTORY: Screening Mammogram - patient reports NO breast symptoms /priors available for comparison. RESULT: TECHNIQUE: The study was acquired using full field digital technology and interpreted from soft copy. Current study was also evaluated with a Computer Aided Detection (CAD). Comparison is made to exams dated: 09/11/2017 mammogram, 06/24/2016 mammogram, 11/30/2015 mammogram, 05/30/2015 mammogram - [facility], 05/08/2015 mammogram, and 06/22/2013 mammogram - [facility]. The tissue of both breasts is heterogeneously dense. This may lower the sensitivity of mammography. There is a stable biopsy clip in the left breast. There is an asymmetry in the right breast at 11 o'clock middle depth. No other significant masses, calcifications, or other findings are seen in either breast. IMPRESSION: INCOMPLETE: NEEDS ADDITIONAL IMAGING EVALUATION The asymmetry in the right breast is indeterminate. Additional views are recommended. The exam was reviewed by a staff physician. sánchez Stack M.D., M.D./gideon:09/17/2018 14:23:59 Pharmacist Technician: Miladys CA(R)(M), [facility] letter sent: Additional Imaging Needed Mammogram BI-RADS: 0 Incomplete: needs additional imaging evaluation If this report indicates you need additional imaging, and it has NOT yet been performed, please call , to schedule. We sincerely thank you for choosing the [facility] for your breast imaging needs. Multiple national specialty organizations have released breast cancer screening guidelines for women at average risk for developing breast cancer - guidelines that are based on both evidence and opinion, yet differ on when to start and how often to screen for breast cancer. With representation from Breast Imaging, Internal Medicine, Women's Health, Family Medicine, and Medical/Surgical Oncology, the [facility] has carefully reviewed the data and reached the following consensus: 1) All women should engage in shared decision-making with their providers to decide when to start and how often to screen; 2) All women should have the opportunity to start screening mammography at age 40; 3) For women ages 45-55, we recommend annual screening mammograms; 4) For women ages 55 and over, we support both the transition from an annual to a biennial interval if this aligns more with patient's values and preferences, or continuation with annual screening; 5) All women should discuss with their providers when to stop screening mammograms. Harness Installer: Gideon Transcribe Date/Time: Sep 17 2018 7:59A Dictated by: NINO DAVE MD This examination was interpreted and the report reviewed and electronically signed by: CRAIG GREY MD on Sep 17 2018 2:23PM EST [id number] PROGRESS Observed: 09/17/2018 Status: COMPLETED Source: [place] 8:11 AM [facility] REPOSITORY HNO ID: [id number] Author: Ashley Ca Service: (none) Author Type: (none) Type: Progress Notes Filed: 09/17/2018 8:11 AM Note Text: Radiology Service Progress Note PATIENT NAME: Price Cardenas DATE OF SERVICE: September 17, 2018 TIME: 8:11 AM PATIENT IDENTITY VERIFICATION COMPLETED USING TWO (2) METHODS: Patient confirmed name verbally and Date of . PATIENT GENDER DATA: Female. status: : No status: NO. PATIENT RELEVANT IMPLANT DATA REVIEWED: Not Applicable RADIOLOGY DEPARTMENT: [facility] DATA: Not applicable SIGNED BY: Ashley Ca September 17, 2018 8:11 AM PROGRESS Observed: 09/10/2018 Status: COMPLETED Source: [place] 10:54 AM [facility] REPOSITORY HNO ID: [id number] Author: Yi Bolton Service: (none) Author Type: Physician Type: Progress Notes Filed: 09/10/2018 3:09 PM Note Text: Chief Complaint Patient presents with: F/U 6 months HPI Price Cardenas is a 48 year old female who presents here today for 6 month follow up. Anxiety: controlled, is taking Celexa 40 mg daily and using Xanax 0.25 mg as needed, does not take daily or TID. GERD: controlled with Prilosec 20 mg dialy. Rash cleared up on hands with kenalog cream. Vitamin D Deficiency: pt stated she completed the Vitamin d 50,000 unit dosage once weekly. Not taking any any vitamin D at this time. Beltran Tyler suggested after the 50,000 units for 12 weeks she should start taking 2,000 units once a day. Cold: head congestion, chest congestion, cough, headache, facial tenderness, left eye pain and twitching. Denies any fever or sob or wheezing. Did use the recommended dosage of mucinex which she stated caused her to throw up. Has but this back to half the recommended dosage which she tolerated. She denies much runny nose, feels more stuffy. Pt states that the pain she was seen for in April from the kidney stone resolved, she passed the stone. Past medical history, appointments, medications, allergies reviewed. Previous Medical History PAST MEDICAL HISTORY Diagnosis Date - Adjustment disorder with depressed mood 10/08/2007 - Anxiety - Complete tear of right rotator cuff 04/03/2016 - Kidney stone on right side 07/09/2018 [place] - Non morbid obesity 04/18/2016 Previous Surgical History PAST SURGICAL HISTORY Procedure Laterality Date - ARTHROS SHLDR DX W/WO SYNV BX Right 04/19/2016 Right shoulder arthroscopy - LAP CHOLECYSTECT/CHOLANGIOGRAPHY 03-12-07 - LIGATE FALLOPIAN TUBE Tubal ligation - NOVASURE ABLATION WO HYSTREOSCOPY 2010 - REMOVE TONSILS/ADENOIDS,<12 Y/O T/A (under age 12 years) - REPAIR COMPL ROTATOR CUFF AVULSN,CHR Right 04/19/2016 Open SAD and RCR Family History FAMILY HISTORY Problem Relation Age of Onset - Allergies Mother - None Father unknown to pt - Hypertension Maternal Grandmother - Coronary Artery Disease Maternal Grandmother Patient Allergies ALLERGIES No Known Allergies Current Medications Current Outpatient Prescriptions on File Prior to Visit: omeprazole (PRILOSEC) 20 mg capsule Take 1 capsule by mouth daily before breakfast. 1/2 hr before meal. citalopram (CELEXA) 40 mg tablet 1 tablet once daily. ALPRAZolam (XANAX) 0.25 mg tablet Take 1 tablet by mouth three times daily as needed for Anxiety. albuterol HFA (PROAIR HFA) 90 mcg/actuation inhaler Inhale 2 Puffs as instructed every 4 hours as needed. (Patient not taking: Reported on 07/23/2018 ) cholecalciferol, Vitamin D3, (VITAMIN D3) 50,000 unit cap capsule Take 1 capsule by mouth once each week. (Patient not taking: Reported on 07/23/2018 ) triamcinolone (KENALOG) 0.025 % cream Apply 1 application to affected area twice daily. Until gone (Patient not taking: Reported on 07/23/2018 ) No current facility-administered medications on file prior to visit. Social History Social History Marital status: Spouse name: Yi Years of education: 12 Number of children: 3 Occupational History Occupation Employer Comment [employer] Social History Main Topics Smoking status: Never Smoker Smokeless tobacco: Never Used Alcohol use: Yes Comment: rarely Drug use: No Sexual activity: Yes Partners with: Male control/protection: Surgical Comment: bps EXAM: BP 128/78 Pulse 74 Temp 36.2 ?C (97.2 ?F) (Tympanic) Resp 16 Wt 112.5 kg (248 lb) BMI 42.57 kg/m? General Appearance: Well appearing, alert, in no acute distress, well-hydrated, well nourished. and Obese. Head: facial tenderness on left side Ears: External ears normal, canals clear. Oropharynx: Lips, mucosa, and tongue normal, teeth and gums normal, oropharynx normal. Neck: Supple, no adenopathy; thyroid symmetric, normal size, no bruits. Lungs: Lungs clear to auscultation. No wheezing, rhonchi, rales. Heart: RRR without murmur, gallop, or rubs. No ectopy. Health Maintenance List MAMMOGRAM due on 09/11/2018 DIABETES SCREEN due on 03/11/2021 DTAP,TDAP,TD(2 - Td) due on 01/28/2022 PAP EVERY 5 YEARS due on 10/09/2022 HPV EVERY 5 YEARS due on 10/09/2022 LIPID SCREEN due on 03/11/2023 INFLUENZA Completed Data reviewed none ASSESSMENT/PLAN: 1. Anxiety - ICD9: 300.00, ICD10: F41.9 (primary diagnosis) Continue current medications. 2. Gastroesophageal reflux disease with esophagitis - ICD9: 530.11, ICD10: K21.0 - OMEPRAZOLE 20 MG CAPSULE,DELAYED RELEASE 3. Panic attack - ICD9: 300.01, ICD10: F41.0 Continue current medications. - ALPRAZOLAM 0.25 MG TABLET 4. Encounter for other screening for malignant neoplasm of breast - ICD9: V76.19, ICD10: Z12.39 - MARY SCREENING 5. Adjustment disorder with depressed mood - ICD9: 309.0, ICD10: F43.21 Continue current medications. 6. Vitamin D deficiency - ICD9: 268.9, ICD10: E55.9 Recommend taking Vitamin D 1,000 to 2,000 units OTC daily 7. Acute non-recurrent sinusitis, unspecified location - ICD9: 461.9, ICD10: J01.90 - Will begin treatment with Augmentin 875 mg PO BID for 10 days - Supportive care with plenty of fluids, rest, and analgesia prn. Follow up in 6 months. I agree with the Chief Complaint, ROS, and Past Histories independently gathered by the clinical cryptologic support specialist and the remaining scribed note accurately describes my personal service to the patient. Yi Bolton MD The documentation for this note was completed by Tahira Centeno Ma acting as scribe for Yi Bolton MD. September 10, 2018 10:54 AM. CNOV Observed: 09/10/2018 Status: COMPLETED Source: [place] 10:40 AM [facility] REPOSITORY Office Visit (FAMPWS) PRICE CARDENAS ([id number]) 1970 F Date Time Provider Department 09/10/18 10:40 AM [facility] During your visit today, we recorded the following information about you: Temperature Pulse Respiration Blood pressure 97.2 degrees 74/minute 16/minute 128/78 Weight 112.5 kg Yi Bolton MD 09/10/2018 3:09 PM Signed Chief Complaint Patient presents with: F/U 6 months HPI Price Cardenas is a 48 year old female who presents here today for 6 month follow up. Anxiety: controlled, is taking Celexa 40 mg daily and using Xanax 0.25 mg as needed, does not take daily or TID. GERD: controlled with Prilosec 20 mg dialy. Rash cleared up on hands with kenalog cream. Vitamin D Deficiency: pt stated she completed the Vitamin d 50,000 unit dosage once weekly. Not taking any any vitamin D at this time. Beltran Tyler suggested after the 50,000 units for 12 weeks she should start taking 2,000 units once a day. Cold: head congestion, chest congestion, cough, headache, facial tenderness, left eye pain and twitching. Denies any fever or sob or wheezing. Did use the recommended dosage of mucinex which she stated caused her to throw up. Has but this back to half the recommended dosage which she tolerated. She denies much runny nose, feels more stuffy. Pt states that the pain she was seen for in April from the kidney stone resolved, she passed the stone. Past medical history, appointments, medications, allergies reviewed. Previous Medical History PAST MEDICAL HISTORY Diagnosis Date - Adjustment disorder with depressed mood 10/08/2007 - Anxiety - Complete tear of right rotator cuff 04/03/2016 - Kidney stone on right side 07/09/2018 Pomerene - Non morbid obesity 04/18/2016 Previous Surgical History PAST SURGICAL HISTORY Procedure Laterality Date - ARTHROS SHLDR DX W/WO SYNV BX Right 04/19/2016 Right shoulder arthroscopy - LAP CHOLECYSTECT/CHOLANGIOGRAPHY 03-12-07 - LIGATE FALLOPIAN TUBE Tubal ligation - NOVASURE ABLATION WO HYSTREOSCOPY 2010 - REMOVE TONSILS/ADENOIDS,<12 Y/O T/A (under age 12 years) - REPAIR COMPL ROTATOR CUFF AVULSN,CHR Right 04/19/2016 Open SAD and RCR Family History FAMILY HISTORY Problem Relation Age of Onset - Allergies Mother - None Father unknown to pt - Hypertension Maternal Grandmother - Coronary Artery Disease Maternal Grandmother Patient Allergies ALLERGIES No Known Allergies Current Medications Current Outpatient Prescriptions on File Prior to Visit: omeprazole (PRILOSEC) 20 mg capsule Take 1 capsule by mouth daily before breakfast. 1/2 hr before meal. citalopram (CELEXA) 40 mg tablet 1 tablet once daily. ALPRAZolam (XANAX) 0.25 mg tablet Take 1 tablet by mouth three times daily as needed for Anxiety. albuterol HFA (PROAIR HFA) 90 mcg/actuation inhaler Inhale 2 Puffs as instructed every 4 hours as needed. (Patient not taking: Reported on 07/23/2018 ) cholecalciferol, Vitamin D3, (VITAMIN D3) 50,000 unit cap capsule Take 1 capsule by mouth once each week. (Patient not taking: Reported on 07/23/2018 ) triamcinolone (KENALOG) 0.025 % cream Apply 1 application to affected area twice daily. Until gone (Patient not taking: Reported on 07/23/2018 ) No current facility-administered medications on file prior to visit. Social History Social History Marital status: Spouse name: Yi Years of education: 12 Number of children: 3 Occupational History Occupation Employer Comment [employer] Social History Main Topics Smoking status: Never Smoker Smokeless tobacco: Never Used Alcohol use: Yes Comment: rarely Drug use: No Sexual activity: Yes Partners with: Male control/protection: Surgical Comment: bps EXAM: BP 128/78 Pulse 74 Temp 36.2 ?C (97.2 ?F) (Tympanic) Resp 16 Wt 112.5 kg (248 lb) BMI 42.57 kg/m? General Appearance: Well appearing, alert, in no acute distress, well-hydrated, well nourished. and Obese. Head: facial tenderness on left side Ears: External ears normal, canals clear. Oropharynx: Lips, mucosa, and tongue normal, teeth and gums normal, oropharynx normal. Neck: Supple, no adenopathy; thyroid symmetric, normal size, no bruits. Lungs: Lungs clear to auscultation. No wheezing, rhonchi, rales. Heart: RRR without murmur, gallop, or rubs. No ectopy. Health Maintenance List MAMMOGRAM due on 09/11/2018 DIABETES SCREEN due on 03/11/2021 DTAP,TDAP,TD(2 - Td) due on 01/28/2022 PAP EVERY 5 YEARS due on 10/09/2022 HPV EVERY 5 YEARS due on 10/09/2022 LIPID SCREEN due on 03/11/2023 INFLUENZA Completed Data reviewed none ASSESSMENT/PLAN: 1. Anxiety - ICD9: 300.00, ICD10: F41.9 (primary diagnosis) Continue current medications. 2. Gastroesophageal reflux disease with esophagitis - ICD9: 530.11, ICD10: K21.0 - OMEPRAZOLE 20 MG CAPSULE,DELAYED RELEASE 3. Panic attack - ICD9: 300.01, ICD10: F41.0 Continue current medications. - ALPRAZOLAM 0.25 MG TABLET 4. Encounter for other screening for malignant neoplasm of breast - ICD9: V76.19, ICD10: Z12.39 - MARY SCREENING 5. Adjustment disorder with depressed mood - ICD9: 309.0, ICD10: F43.21 Continue current medications. 6. Vitamin D deficiency - ICD9: 268.9, ICD10: E55.9 Recommend taking Vitamin D 1,000 to 2,000 units OTC daily 7. Acute non-recurrent sinusitis, unspecified location - ICD9: 461.9, ICD10: J01.90 - Will begin treatment with Augmentin 875 mg PO BID for 10 days - Supportive care with plenty of fluids, rest, and analgesia prn. Follow up in 6 months. I agree with the Chief Complaint, ROS, and Past Histories independently gathered by the clinical cryptologic support specialist and the remaining scribed note accurately describes my personal service to the patient. Yi Bolton MD The documentation for this note was completed by Tahira Centeno Ma acting as scribe for Yi Bolton MD. September 10, 2018 10:54 AM. Referring Provider: BELTRAN TYLER ([facility]) [[id number]] Allergies As of Date: 09/10/2018 (No Known Allergies) Date Reviewed: 09/10/2018 Reviewed by: Tahira Centeno Ma - Fully Assessed Reason for Visit: F/U 6 months [1177] Primary Visit Diagnosis:Anxiety [F41.9] Other Visit Diagnoses:Gastroesophageal reflux disease with esophagitis [K21.0] Panic attack [F41.0] Encounter for other screening for malignant neoplasm of breast [Z12.39] Adjustment disorder with depressed mood [F43.21] Vitamin D deficiency [E55.9] Acute non-recurrent sinusitis, unspecified location [J01.90] Order(s):omeprazole (PRILOSEC) 20 mg capsuleTake 1 capsule by mouth daily before breakfast. 1/2 hr before meal.Disp: 30 capsuleRfl: 11 ALPRAZolam (XANAX) 0.25 mg tabletTake 1 tablet by mouth three times daily as needed for Anxiety for up to 90 days.Disp: 30 tabletRfl: 2 [facility] SCREENING [[id number]] Order #: [id number] FUTURE amoxicillin-clavulanic acid (AUGMENTIN) 875-125 mg per tabletTake 1 tablet by mouth twice daily for 10 days.Disp: 20 tabletRfl: 0 Cholecalciferol, Vitamin D3, 1,000 unit capTake 1 capsule by mouth once daily.Disp: Rfl: Prescriptions as of 09/10/2018 Sig: OMEPRAZOLE 20 MG CAPSULE,HORTENCIA* Take 1 capsule by mouth daily* ALPRAZOLAM 0.25 MG TABLET Take 1 tablet by mouth three * CITALOPRAM 40 MG TABLET 1 tablet once daily. AMOXICILLIN 875 MG-POTASSIUM * Take 1 tablet by mouth twice * CHOLECALCIFEROL (VITAMIN D3) * Take 1 capsule by mouth once * Problem List As Of Date 09/10/2018 Noted Resolved SKIN DISORDERS NEC [L98.8] INVALID FOR* ADJUSTMENT DISORDER WITH DEPRESSED MOOD [F43.21]INVALID FOR* Panic attack [F41.0] INVALID FOR* Anxiety [F41.9] INVALID FOR* Mammographic microcalcification [R92.0] INVALID FOR* Complete tear of right rotator cuff [M75.121] INVALID FOR* Obesity, Class III, BMI 40-49.9 (morbid obesity*INVALID FOR* Acute pain of right shoulder [M25.511] INVALID FOR* Weakness of shoulder [R29.898] INVALID FOR* Kidney stones [N20.0] INVALID FOR* Vitamin D deficiency [E55.9] INVALID FOR* Prescriptions ordered this encounter Disp Refills Start End OMEPRAZOLE 20 MG CAPSULE,DELAYED REL* 30 c* 11 09/10/2018 Route: ORAL Sig: Take 1 capsule by mouth daily before breakfast. 1/2 hr before meal. ALPRAZOLAM 0.25 MG TABLET 30 t* 2 09/10/2018 12/09/2018 Class: Print RX Route: ORAL Sig: Take 1 tablet by mouth three times daily as needed for Anxiety for up to 90 days. AMOXICILLIN 875 MG-POTASSIUM CLAVULA* 20 t* 0 09/10/2018 09/20/2018 Route: ORAL Sig: Take 1 tablet by mouth twice daily for 10 days. CHOLECALCIFEROL (VITAMIN D3) 1,000 U* 09/10/2018 Class: OTC Route: ORAL Sig: Take 1 capsule by mouth once daily. Medications Discontinued During This Encounter albuterol HFA (PROAIR HFA) 90 mcg/ac* 1 In* 0 04/23/2018 09/10/2018 Route: INHALATION Sig: Inhale 2 Puffs as instructed every 4 hours as needed. Patient not taking: Reported on 07/23/2018 Disc: Reason for discontinue is not on file. cholecalciferol, Vitamin D3, (VITAMI* 12 c* 0 03/12/2018 09/10/2018 Route: ORAL Sig: Take 1 capsule by mouth once each week. Patient not taking: Reported on 07/23/2018 Disc: Reason for discontinue is not on file. triamcinolone (KENALOG) 0.025 % cream 15 g 2 03/11/2018 09/10/2018 Route: TOPICAL Sig: Apply 1 application to affected area twice daily. Until gone Patient not taking: Reported on 07/23/2018 Disc: Reason for discontinue is not on file. omeprazole (PRILOSEC) 20 mg capsule 30 c* 11 03/11/2018 09/10/2018 Route: ORAL Sig: Take 1 capsule by mouth daily before breakfast. 1/2 hr before meal. Disc: Reason for discontinue is not on file. ALPRAZolam (XANAX) 0.25 mg tablet 30 t* 2 04/18/2017 09/10/2018 Class: Print RX Route: ORAL Sig: Take 1 tablet by mouth three times daily as needed for Anxiety. Disc: Reason for discontinue is not on file. Disposition: Return in about 6 months (around 03/11/2019). Follow-up and Disposition History Recorded Encounter Status:Closed by YI BOLTON MD on 09/10/18 EMERGENCY REPORT Observed: 08/10/2018 Status: F Source: [facility] 2:51 AM [facility] EMERGENCY ROOM REPORT NAME ACCOUNT SEX AGE ADMIT DISCHARGE PT MED. RECORD# NUMBER DATE DATE TYPE MARYBETH [id number] F 47 08/05/18 08/05/18 3 PRICE [id number] ROOM: ER DATE OF : 1970 DICTATING PHYSICIAN: Ariel Yañez ADDENDUM DIAGNOSTIC DATA: CT of the abdomen and pelvis showed no abdominal aortic aneurysm. Cholecystectomy. No focal abnormality of the liver, spleen, pancreas, adrenal glands, kidney, urinary bladder or uterus. No bowel obstruction. No gross focal bowel abnormality. There is a small hiatal hernia. Normal appendix. No ascites or lymphadenopathy. No acute osseous abnormality. The patient's chemistry showed a sodium of 138, potassium 3.6, chloride 104, CO2 of 25.3, BUN 18, creatinine 0.8, and glucose 91. Liver functions all came back within normal limits. CK was 65. Troponin was less than 0.01. EMERGENCY DEPARTMENT COURSE AND TREATMENT: The patient was given Rocephin 1 g IV piggyback. I placed her on Bactrim DS one p.o. b.i.d., dispense #20 with no refill. We do have a urine culture pending. I did also place her on Zofran ODT 4 mg one p.o. every 8 hours as needed for nausea and vomiting, dispense #15 with no refill. She is to follow up with either Dr. Bolton, her primary care physician, but she did tell me she is in the process of changing doctors so I did also give her a referral to [facility] if she would rather stay more local. I recommended follow-up in 2-4 days. Take the medication as prescribed. The patient was discharged in clinically stable condition. Nurse's notes reviewed. DIAGNOSES: 1. Urinary tract infection. 2. Back pain. Dictated By: Ariel Yañez DO 08/05/18 22:29 JOB #: [id number] Transcribed By: eva 08/07/18 07:24 Electronically signed by: E-Sign: Dr. Ariel Yañez D.O. 08/10/18 02:51 Page 1 of 1 PRICE CARDENAS Emergency Room Report EMERGENCY REPORT Observed: 08/06/2018 Status: F Source: [facility] 8:29 PM [facility] EMERGENCY ROOM REPORT NAME ACCOUNT SEX AGE ADMIT DISCHARGE PT MED. RECORD# NUMBER DATE DATE TYPE MARYBETH [id number] Lianna 47 08/05/18 08/05/18 3 RIAROULAJOSE [id number] ROOM: ER DATE OF : 1970 DICTATING PHYSICIAN: Ariel Yaeñz Date seen is August 05, 2018 at 1846 hours. HISTORY OF PRESENT ILLNESS: This is a 47-year-old female complaining of right flank pain for the past 1 month. She started vomiting today and then her pain started in her left flank. She states she has been vomiting off and on since last . She did not eat much Friday. She did eat Friday a little bit, and then Friday and Friday the pain started coming back and yesterday the pain got a lot worse. She went to [facility], and they checked a urinalysis and gave her some Toradol and morphine and she was discharged home. They did give her a prescription for Dolobid. The patient states that the pain is getting worse, particularly in her left flank region. She presently rates it as an 8 on a severity scale of 1 to 10. She describes as sharp in nature, worse with movement. She went to work this afternoon and started vomiting there, so she had to leave work. She just has not been able to keep much down. She states that she did have a CAT scan done here on July 08 and she got admitted for being borderline septic. The CAT scan she states did show some kidney stones, but she could not really give me any details. She states while she was here they did a kidney and bladder ultrasound as well. The patient did go see a urologist in [place] on July 23 and he told her there is nothing wrong with me. The patient now states she is vomiting every time she eats. PAST MEDICAL HISTORY: Kidney stones. The patient did not admit to any other medical problems to me. PAST SURGICAL HISTORY: Include a cholecystectomy. She has had a previous rotator cuff repair of her shoulder, tubal ligation, uterine ablation, and T&A. ALLERGIES: No known drug allergies. SOCIAL HISTORY: She is not a smoker. She denies any use of alcohol. She lives by herself. She does not use any illicit drugs. REVIEW OF SYSTEMS: She denies any chest pain, shortness of breath, cough, sputum, wheezing. She does admit to abdominal pain with associated nausea and vomiting. She denies any diarrhea, constipation, melena, hematochezia, headache, numbness, unsteady gait, weakness, neck or joint pain, but does complain of bilateral flank pain. Today, it is worse on the right than the left. She denies any skin rash, Page 1 of 3 [facility] Emergency Room Report swelling, hives, hayfever, or swollen glands. Further review of systems is negative. PHYSICAL EXAMINATION: Vital signs: Blood pressure 118/86, pulse 106, respirations 18, temperature 97.7, pulse ox 99%, weight 250 pounds. The patient is alert and oriented x3. She presently appears in some mild distress secondary to flank pain, but she is pleasant and cooperative. HEENT: Head appears atraumatic. Pupils are equal and reactive to light. Red reflex intact bilaterally. Extraocular muscles are intact. No conjunctival injection. No scleral icterus or lid edema. Nose: Exhibits no rhinorrhea or epistaxis. Mouth: Mucous membranes are mildly dry. No pharyngeal erythema. Uvula is midline and elevates. Neck is supple. Trachea is midline. No JVD or lymphadenopathy. No posterior cervical tenderness. No nuchal rigidity. Lungs: Clear to auscultation in all lung alvarado. No adventitious sounds are noted. No accessory muscle use. CV: Heart rate and rhythm are regular without murmur. Abdomen is soft, nontender with normoactive bowel sounds x4 quadrants. No guarding or rigidity. No rebound. No palpable abdominal masses. No hepatosplenomegaly. Back exhibits some right flank tenderness on palpation, actually like a right Matt's sign. Left Matt's sign negative. Extremities: No edema or cyanosis. Peripheral pulses are intact. No motor or sensory deficits are noted. 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 Skin is warm and dry. No diaphoresis or rash. Neurologic examination shows the patient to be alert and oriented x4. No motor or sensory deficits noted. Normal speech. She is pleasant and cooperative, somewhat anxious. DIAGNOSTIC DATA: I did order some laboratory work. Her white count is 8.5, hemoglobin 14.2, hematocrit 41, platelet count 289,000. Her urinalysis shows 26 to 50 white cells with 2+ bacteria, so I did order a urine culture and I did give her 1 gram of Rocephin. EMERGENCY DEPARTMENT COURSE AND TREATMENT/PLAN/DISPOSITION: I do have blood cultures pending because she states the last time she got admitted was because she ended up having a positive blood culture and they called her at home and had her come back and admitted her, and all these symptoms are pretty much the same. When I get a chance, I will take a look at that admission. We will then reevaluate. Dictated By: Ariel Yañez DO 08/05/18 20:33 JOB #: [id number] Transcribed By: am 08/06/18 19:38 Electronically signed by: E-Sign: Dr. Ariel Yañez D.O. 08/06/18 20:28 Page 2 of 3 PRICE CARDENAS Emergency Room Report Observed: 08/05/2018 Status: F Source: [facility] CULTURE BLOOD 8:20 PM [facility] REPOSITORY CULTURE BLOOD CULTURE BLOOD SET: 1 of 2 24HOUR REPORT NO GROWTH 48HOUR REPORT NO GROWTH 72HOUR REPORT NO GROWTH M I C R O B I O L O G Y R E P O R T FINAL Antimicrobial Susceptibility and Organism Identification Report Specimen Number : [id number] Requested : 08/05/18 Specimen Source : BLOOD Collected : 08/05/18 20:20 Tim of Isolation : Emergency Room Received : 08/05/18 20:20 Requesting Physician : OTILIO Patient/Specimen Tests and Comments Specimen Comments FINAL REPORT: No Growth at 5 Days Tech : Source : BLOOD ID # : [id number] FINAL Report Date : / / : Collected : 08/05/18 20:20 08/11/[email or web address]. 08/11/[email or web address] Performed By: #### [id number] #### [facility],[address] [place] [address] CT KUB (KIDNEY STONE Observed: 08/05/2018 Status: F Source: [facility] PROTOCOL) 7:54 PM [place] [id number] Patient: PRICE CARDENAS Phone#: : 1970 Age: 47 Gender: F Pt. Type: ER Account: [id number] Location: [facility] Ordering: ARIEL YAÑEZ Exam Date: 08/05/2018/19:46 Family Phys: YI BOLTON Charge Code: [id number] Physician: Carolina Order #: [id number] DLP Dose#: PROCEDURE: CT ABDOMEN AND PELVIS WITHOUT CONTRAST COMPARISON: [facility], CT, KUB W/O CON, 07/08/2018, 0:39. INDICATIONS: Right-sided and left-sided Flank pain. Nausea and vomiting TECHNIQUE: After obtaining the patient's consent, CT images of the abdomen and pelvis were created without non-ionic intravenous contrast material. All CT scans at this facility use dose modulation, iterative reconstruction, and/or weight based dosing when appropriate to reduce radiation dose to as low as reasonably achievable. IV CONTRAST: No IV contrast used,0ml TOTAL DOSE: 24 CTDIvol(mGy) FINDINGS: KIDNEYS: Normal. No mass, obstruction, or calcification. ADRENALS: Normal. No mass or enlargement. URINARY BLADDER: Normal. No visible focal wall thickening, lesion, or calculus. LIVER: Normal. No enlargement, atrophy, abnormal density, or significant focal lesion. BILIARY: Gallbladder is surgically absent. PANCREAS: Normal. No lesion, fluid collection, ductal dilatation, or atrophy. SPLEEN: Normal. No enlargement or focal lesion. AORTA/VASCULAR: Normal. No aneurysm. RETROPERITONEUM: Normal. No mass or adenopathy. BOWEL/MESENTERY: Normal. No visible mass, obstruction, or bowel wall thickening. ABDOMINAL WALL: Normal. No mass or hernia. Normal appendix. PELVIC NODES: Normal. No adenopathy. PELVIC ORGANS: Normal. No visible mass. Pelvic organs appropriate for patient age. BONES: Normal. No bony lesion or fracture. Continued Report - Page 2 of 2 Patient: PRICE CARDENAS Phone#: : 1970 Age: 47 Gender: F Pt. Type: ER Account: [id number] Location: 2 Ordering: ARIEL YAÑEZ Exam Date: 08/05/2018/19:46 Family Phys: YI BOLTON Charge Code: [id number] Physician: Carolina Order #: [id number] DLP Dose#: LUNG BASES: There is minimal linear atelectasis in the lingula OTHER: Negative. CONCLUSION: 1. No visible acute inflammatory process. No obstructive uropathy. Normal appendix. Dictated by: Dexter Whitlock MD on 08/06/2018 at 8:31 Approved by: Dexter Whitlock MD on 08/06/2018 at 8:31 CBC Collected: 08/05/2018 Status: F Source: [facility] 7:47 PM [facility] REPOSITORY TYPE CODE TESTS RESULT OUT OF RANGE REFERENCE UNITS LAB CBC(LOINC) CBC Result Comment: CBC-COMPLETE BLOOD COUNT LAB WBC(LOINC) 4.5 - 10.8 x 10EE3/UL WBC 8.5 LAB RBC(LOINC) 4.10 - x 10EE6/UL 5.30 RBC 4.82 LAB HEMOGLOBIN(LOINC) 12.0 - g/dl 16.0 HEMOGLOBIN 14.2 LAB HEMATOCRIT(LOINC) 34.0 - % 46.0 HEMATOCRIT 41.0 LAB MCV(LOINC) 80 - 99 fl MCV 85 LAB MCH(LOINC) 27 - 33 pg MCH 29 LAB MCHC(LOINC) 32 - 36 X10 3 MCHC 35 LAB RDW/CV(LOINC) 12.0 - % 15.6 RDW/CV 14.0 LAB PLATELET(LOINC) 150 - 450 x10EE3/UL PLATELET 289 LAB MPV(LOINC) 6.6 - 10.5 fl MPV 9.3 Result Comment: AUTOMATED DIFFERENTIAL LAB NEUT %(LOINC) 46.0 - 76.0 % NEUT % 62.9 LAB LYMPH %(LOINC) 20.0 - 45.0 % LYMPH % 30.0 LAB MONOS %(LOINC) 0.0 - 10.0 % MONOS % 4.8 LAB EO %(LOINC) 0.0 - 7.0 % EO % 1.6 LAB BASO %(LOINC) 0.0 - 2.0 % BASO % 0.7 LAB Lymph #(LOINC) 0.80 - 2.80 x10EE3/U L Lymph # 2.60 LAB Neut #(LOINC) 1.50 - 7.10 x10EE3/U L Neut # 5.40 LAB [place] #(LOINC) 0.20 - 1.00 x10EE3/U L [place] # 0.40 LAB EO #(LOINC) 0.00 - 0.50 x10EE3/U L EO # 0.10 LAB Baso #(LOINC) 0.00 - 0.10 x10EE3/U L [place] # 0.10 LAB MANUAL DIFF(INC) MANUAL DIFF N/A LAB MORPHOLOGY([facility] ) MORPHOLOGY N/A Result Comment: {CD] Performed By: #### [id number] #### [facility],[address] [place] [address] CMP WITH EGFR Collected: 08/05/2018 Status: F Source: [facility] 7:47 PM [facility] REPOSITORY TYPE CODE TESTS RESULT OUT OF RANGE REFERENCE UNITS LAB CMP with eGFR(INC) CMP with eGFR Result Comment: COMPREHENSIVE METABOLIC PANEL LAB SODIUM(LOINC) 136 - 145 mmol/l SODIUM 138 LAB POTASSIUM(LOINC) 3.5 - 5.1 mmol/L POTASSIUM 3.6 LAB CHLORIDE(LOINC) 98 - 107 mmol/L CHLORIDE 104 LAB CO2(LOINC) 21.0 - mmol/L 31.0 CO2 25.3 LAB GLUCOSE(LOINC) 74 - 106 mg/dl GLUCOSE 91 LAB BUN(LOINC) 6 - 20 mg/dl BUN 18 LAB CREATININE(LOINC) 0.6 - 1.2 mg/dl CREATININE 0.8 LAB AST/SGOT(LOINC) 13 - 39 U/L AST/SGOT 15 LAB ALK PHOS(LOINC) 38 - 126 U/L ALK PHOS 81 LAB CALCIUM(LOINC) 8.6 - mg/dl 10.2 CALCIUM 9.3 LAB TOTAL PROTEIN(LOINC) 6.4 - 8.3 g/dl TOTAL PROTEIN 7.5 LAB ALBUMIN(LOINC) 3.4 - 4.8 g/dL ALBUMIN 4.6 LAB GLOBULIN(LOINC) 1.5 - 3.8 G/DL GLOBULIN 2.9 LAB A/G RATIO(LOINC) 0.9 - 1.6 A/G RATIO 1.6 LAB TOTAL BILI(LOINC) 0.0 - 1.5 mg/dl TOTAL BILI 0.4 LAB B/C RATIO(LOINC) 0 - 30 ratio B/C RATIO 23 LAB ALT/SGPT(LOINC) 8 - 35 U/L ALT/SGPT 12 LAB ANION GAP(LOINC) 10 - 20 mmol/L ANION GAP 12 LAB AGE(LOINC) years AGE 47 LAB eGFR(LOINC) 60 - 999 ML/MINUTE eGFR >60 LAB eGFR(AA)(LOINC) 60 - 999 ML/MINUTE eGFR(AA) >60 Result Comment: ACCORDING TO THE NATIONAL KIDNEY DISEASE EDUCATION PROGRAM(NKDE), A NORMAL eGFR IS A VALUE GREATER THAN OR EQUAL TO 60 ML/MIN/1.73 SQ METERS. CHRONIC KIDNEY DISEASE: <60mL/MIN/1.73 SQ METERS KIDNEY FAILURE: <15mL/MIN/1.73 SQ METERS THIS TEST SHOULD ONLY BE USED FOR PATIENTS 18 YEARS OF AGE AND OLDER. Performed By: #### [id number] #### [place] [id number] CPK Collected: 08/05/2018 Status: F Source: [facility] 7:[address] [place] [address] REPOSITORY TYPE CODE TESTS RESULT OUT OF RANGE REFERENCE UNITS LAB CPK(LOINC) 26 - 140 U/L CPK 65 Performed By: #### [id number] #### [place] [address] TROPONIN Collected: 08/05/2018 Status: F Source: [facility] 7:[address] [place] [address] REPOSITORY TYPE CODE TESTS RESULT OUT OF REFERENCE UNITS RANGE LAB TROPONIN 0.00 - 0.05 ng/ml I(LOINC) TROPONIN I <0.01 Result Comment: Elevated troponin (above the 99th percentile) usually indicates myocardial ischemia. Results must be interpreted within the clinical setting. 1.Non-ischemic pathology can also cause elevated troponin levels (e.g., acute pulmonary embolism, myocarditis, pericarditis, heart failure, intracranial injury, rhabdomyolisis, sepsis, shock and renal insufficiency). 2.Approximately 1% of healthy adults have elevated troponin levels. 3.Analytical false positive results rarely occur(due to multiple interferences such as heterophile antibodies). Performed By: #### [id number] #### [facility],[address] [place] [address] Observed: 08/05/2018 Status: F Source: [facility] CULTURE BLOOD 7:47 PM [facility] REPOSITORY CULTURE BLOOD CULTURE BLOOD SET: 2 of 2 24HOUR REPORT NO GROWTH 48HOUR REPORT NO GROWTH 72HOUR REPORT NO GROWTH M I C R O B I O L O G Y R E P O R T FINAL Antimicrobial Susceptibility and Organism Identification Report Specimen Number : [id number] Requested : 08/05/18 Specimen Source : BLOOD Collected : 08/05/18 19:47 Tim of Isolation : Emergency Room Received : 08/05/18 19:47 Requesting Physician : OTILIO Patient/Specimen Tests and Comments Specimen Comments FINAL REPORT: No Growth at 5 Days Tech : Source : BLOOD ID # : [id number] FINAL Report Date : / / : Collected : 08/05/18 19:47 08/11/18.BKO. 08/11/18.BKO.COMPLETE Performed By: #### [id number] #### [facility],[address] [place] [address] URINALYSIS Collected: 08/05/2018 Status: F Source: [facility] 7:45 PM [facility] REPOSITORY TYPE CODE TESTS RESULT OUT OF REFERENCE UNITS RANGE LAB URINALYSIS (LOINC) URINALYSIS Result Comment: URINALYSIS LAB Specimen Type(LOINC) Specimen Type Clean catch LAB Color(LOINC) NORMAL: YELLOW Color yellow LAB Clarity(LOINC) NORMAL: CLEAR Clarity clear LAB ph(LOINC) NORMAL: 5.0-8.0 ph 5 LAB Protein(LOINC) NORMAL: NEGATIVE Protein Abnormal 15 LAB Glucose(LOINC) NORMAL: NORMAL Glucose NORM LAB Ketone(LOINC) NORMAL: NEGATIVE Ketone NEG LAB Bilirubin(LOINC) NORMAL: NEGATIVE Bilirubin NEG LAB Blood(LOINC) NORMAL: NEGATIVE Blood Abnormal 10 LAB Urobilinog(LOINC) NORMAL: NORMAL Urobilinog NORM LAB Sp [place](LOINC) NORMAL: 1.010-1.030 Sp [place] 1.030 LAB Nitrite(LOINC) NORMAL: NEGATIVE Nitrite NEG LAB Leukocytes(LOINC) NORMAL: NEGATIVE Leukocytes Abnormal 500 LAB Microscopic(LOINC ) Microscopic SEE BELOW Result Comment: MICROSCOPIC LAB Wbc(LOINC) 0-5/hpf Wbc 26-50 LAB Rbc(LOINC) 0-3/hpf Rbc 0-5 LAB Casts(LOINC) Casts NONE LAB Crystals(LOINC) Crystals NONE LAB Amorphous(LOINC) Amorphous NONE LAB Bacteria(LOINC) Bacteria 2+ LAB Epi Cells(LOINC) Epi Cells MANY LAB Mucous(LOINC) Mucous NONE LAB Yeast(LOINC) Yeast NONE Performed By: #### [id number] #### [facility],[address] [place] [address] Observed: 08/05/2018 Status: F Source: [facility] CULTURE URINE 7:45 PM [facility] REPOSITORY CULTURE URINE _URINE CULTURE_ M I C R O B I O L O G Y R E P O R T FINAL Antimicrobial Susceptibility and Organism Identification Report Specimen Number : [id number] Requested : 08/05/18 Specimen Source : CLEAN CATCH URINE Collected : 08/05/18 19:45 Tim of Isolation : Emergency Room Received : 08/05/18 19:45 Requesting Physician : OTILIO Patient/Specimen Tests and Comments Specimen Comments FINAL REPORT: URINE COLONY COUNT: 50,000-100,000 CFU/CC >OR=TO 3 COLONY TYPES PROBABLE CONTAMINATION Tech : Source : CLEAN CATCH URINE ID # : [id number] FINAL Report Date : / / : Collected : 08/05/18 19:45 08/08/18.0638.JLN. 08/07/18.1201.KLS. 08/08/18.0638.JLN.COMPLETE Performed By: #### [id number] #### [facility],[address] [place] [address] DISCHARGE INSTRUCTION Observed: 08/04/2018 Status: F Source: [place] 10:47 PM [facility] REPOSITORY [facility] Medical Records Department [address] [place] [address] Discharge Instruction 08/04/18 2246 MR#: [id number] Acct: [id number] Name: PRICE CARDENAS Rep #: [id number] : 1970 47 From: Ritchie Betancourt MD PCP: Yi Bolton MD Status: REG ER ED Disposition - Plan for ED Patient: Disposition: Home or Assisted Living Chief Complaint: Flank Pain Instructions: ED Flank Pain Uncertain Cause Prescriptions: Diflunisal [Dolobid] 500 mg PO TID #20 tab Referrals: Yi Bolton MD [Primary Care Provider] - What to do if you have Problems For any increased pain, shortness of breath, bleeding, nausea or vomiting, chest pain, or any unexpected problems, contact your Primary Care Provider. Call [facility] ([phone]) or report to the closest Emergency Room. Call 911 if necessary. 08/04/187 <Electronically signed by Ritchie Betancourt MD> Date Ritchie Betancourt MD Cosigner Signature (If Indicated): Date CC: Yi Bolton MD EMERGENCY DEPARTMENT Observed: 08/04/2018 Status: F Source: [place] SUMMARY 10:46 PM [facility] REPOSITORY [facility] Medical Records Department [address] [place] [address] Emergency Department Summary 08/04/18 2243 MR#: [id number] Acct: [id number] Name: PRICE CARDENAS Rep #: [id number] : 1970 47 From: Ritchie Betancourt MD PCP: Yi Bolton MD Status: REG ER - ER Visit Summary Date of Service: 08/04/18 Chief Complaint: Right flank pain History of Present Illness: The patient is a 47 F who presents with right flank pain. Started a month ago. She has had this intermittently. She was seen at [facility] with similar symptoms. She was found to have no infection or kidney stones. She was discharged and she actually followed up with a urologist without any specific diagnosis. She continues to have this pain. She has had nausea and vomiting today. She tries ibuprofen but it does not work. She states nothing helps for the pain. Physical Examination: Vital signs reviewed. HEENT exam unremarkable. Heart is regular rate and rhythm without murmurs. Lungs are clear to auscultation. Abdomen is soft and nontender. She does have right flank tenderness to palpation. Extremities reveal no edema. Skin exam normal. Neurologic exam normal. Test Results: Her studies are unremarkable. Urinalysis negative for infection or blood. Emergency Department Course and Treatment: Patient was given Toradol but that did not help her pain. Morphine helped a little bit. This could be musculoskeletal. I will give her Dolobid. She will need to follow-up with her PCP for further testing Treatment Plan: [] Disposition: Discharge Impression: Right flank pain This note was generated with FilterSure dictation software. It may contain incorrect words, spelling, and punctuation that were not noted in review of the chart prior to signing ED Disposition - Plan for ED Patient: Chief Complaint: Flank Pain Referrals: Yi Bolton MD [Primary Care Provider] - What to do if you have Problems For any increased pain, shortness of breath, bleeding, nausea or vomiting, chest pain, or any unexpected problems, contact your Primary Care Provider. Call [facility] ([phone]) or report to the closest Emergency Room. Call 911 if necessary. 08/04/18 2246 <Electronically signed by Ritchie Betancourt MD> Date Ritchie Betancourt MD Cosigner Signature (If Indicated): Date CC: Yi Bolton MD CBC W/DIFF, AUTOMATED Collected: 08/04/2018 Status: F Source: [place] 8:36 PM [facility] REPOSITORY TYPE CODE TESTS RESULT OUT OF RANGE REFERENCE UNITS LAB L100.1000 4.4-11.0 K/mm3 Normal WBC 8.5 LAB L100.1200 4.2-5.4 M/mm3 Normal RBC 4.75 LAB L100.1300 12.0-15.0 g/dl Normal HGB 13.8 LAB L100.1400 37-47 % Normal HCT 41.7 LAB L100.1500 81-99 fL Normal MCV 87.8 LAB L100.1600 27.0-32.0 pg Normal MCH 29.1 LAB L100.1700 32-36 g/gl Normal MCHC 33.1 LAB L100.1810 11.6-14.6 % Normal RDW CV 13.7 LAB L100.1820 35.1-43.9 fl High RDW SD 44.2 LAB L100.1900 150-450 K/mm3 Normal PLT 288 LAB L100.2000 6.2-12.0 fl Normal MPV 11.1 LAB L100.2100 47-70 % Normal NEUT% 59.0 LAB L100.2200 19-41 % Normal LY% 33.8 LAB L100.2300 0-10 % Normal MONO% 5.1 LAB L100.2400 0-5 % Normal EO% 1.8 LAB L100.2500 0-1 % Normal BASO% 0.2 LAB L100.2550 0.0-0.9 % Normal IM GRAN % 0.100 Result Comment: IG% - Immature Granulocytes (promyelocytes, myelocytes and metamyelocytes) > 1% indicates that a LEFT SHIFT is Present. LAB L100.2620 2.0-7.7 X10 3/uL Normal Absolute Neut 5.0 LAB L100.2720 0.83-4.51 X10 3/ul Normal Absolute Lymph 2.86 Performed By: #### L100.0100, L500.4050 #### [facility] [address] [place], [address] COMPREHENSIVE METABOLIC Collected: 08/04/2018 Status: F Source: [facility] 8:36 PM [facility] REPOSITORY TYPE CODE TESTS RESULT OUT OF RANGE REFERENCE UNITS LAB L501.0100 74-106 mg/dL Normal GLU 104 Result Comment: Fasting Glucose result from 100 to 125 mg/dL suggests IMPAIRED HOMEOSTASIS per A.D.A. criteria. Please note revised GLUCOSE reference range effective 2017. LAB L501.1000 7-18 mg/dL Normal BUN 11 LAB L501.1100 0.55-1.02 mg/dL Normal CREAT,SERUM 1.02 Result Comment: The validity of the calculated GFR AND GFRAA in patients over 70 years has not been determined. Clinical correlation is essential. LAB L501.1110 >60 mL/min Normal EST GFR 62 Result Comment: Non- GFR Calc LAB L501.1115 >60 mL/min Normal EST GFR - AA 75 Result Comment: GFR Calc LAB L501.1255 ml/min Normal Estimated CRCL 59.51 LAB L501.1300 10-20 RATIO Normal BUN/CRE 10.8 LAB L501.1500 6.4-8. g/dL Normal 2 T PROT 7.6 LAB L501.1800 3.2-5. g/dL Normal 0 ALB 3.8 LAB L501.1950 2.2-4. g/dL Normal 2 GLOB 3.8 LAB L501.2000 0.9-2. RATIO Normal 4 A/G 1.0 LAB L501.2200 8.5-10 mg/dL Normal .1 CA 8.7 LAB L501.4100 15-37 U/L Low AST 14 LAB L501.4305 45-117 U/L Normal ALK P 90 LAB L501.4405 13-56 U/L Normal ALT 18 LAB L501.4600 0.20-1 mg/dL Normal .00 T BILI 0.40 LAB L501.5300 136-14 mmol/L Normal 5 NA 140 LAB L501.5600 3.5-5. mmol/L Normal 1 K 3.5 LAB L501.5900 98-107 mmol/L Normal CL 106 LAB L501.6100 21.0-3 mmol/L Normal 2.0 CO2 26.0 LAB L501.6200 5-15 Normal GAP 8 Performed By: #### L100.0100, L500.4050 #### [facility] [address] [place], [place], [address] URINALYSIS, COMPLETE Collected: 08/04/2018 Status: F Source: [place] 8:36 PM [facility] REPOSITORY Order Comment: Order Date: 08/04/18 How was Urine Obtained? CLEAN CATCH TYPE CODE TESTS RESULT OUT OF RANGE REFERENCE UNITS LAB L400.3000 Yellow COLOR Normal Yellow LAB L400.3050 Clear Normal CLARITY Clear LAB L400.3200 Normal mg/dl Normal GLUCOSE, UR Normal LAB L400.3300 Negative mg/dL Normal BILIRUBIN URINE Negative LAB L400.3400 Negative mg/dl Normal KETONE UR Negative LAB L400.3465 1.002-1.030 Normal SP.GR. DIPSTX 1.020 LAB L400.3550 5.0 - 8.0 pH UR Normal 6.0 LAB L400.3600 Negative mg/dl High PROT 30 DIPSTX LAB L400.3700 Normal mg/dl Normal UROBILI Normal LAB L400.3750 Negative Normal NITRITE UR Negative LAB L400.3780 Negative /ul High 10 OCCULT BLOOD-UR LAB L400.3800 Negative /ul High LEUK 25 ESTERASE LAB L400.4050 0-5 /hpf WBC Normal 5-10 SEEN LAB L400.4100 0-5 /hpf Normal RBC-UA 0-5 SEEN LAB L400.4150 5-10 /hpf SQUAM Normal EPI 0-5 SEEN LAB L400.4300 None Seen /hpf Normal BACTERIA RARE LAB L400.4350 <or=2+ /hpf Normal MUCUS, URINE RARE Performed By: #### L400.0001 #### [facility] [address] [facility] [place], [place], [address] PROGRESS Observed: 07/26/2018 Status: COMPLETED Source: [place] 9:28 AM [facility] REPOSITORY HNO ID: [id number] Author: Xuan Julien Service: (none) Author Type: Physician Type: Progress Notes Filed: 07/26/2018 9:28 AM Note Text: Good. No UTI. Observed: 07/23/2018 Status: F Source: [place] URINE CULTURE 4:00 PM [facility] REPOSITORY Sp. Request/Comment: - Specimen received in preservative Culture Result - No growth (<100 CFU/ml) Performed By: #### URCUL #### [facility] [address] [facility] [phone] [facility] [address] [place] [address] PROGRESS Observed: 07/23/2018 Status: COMPLETED Source: [place] 11:00 AM [facility] REPOSITORY HNO ID: [id number] Author: Xuan Julien Service: (none) Author Type: Physician Type: Progress Notes Filed: 07/23/2018 11:07 AM Note Text: Consultation requested by Yi Brandt MD for an opinion regarding Patient presents with: New Patient: Recurrent UTI . My final recommendations will be communicated back to the requesting physician by way of shared Medical record or letter to requesting physician via US mail. HISTORY OF PRESENT ILLNESS: Arieljose Mellissa Leesaisha 47 year old female who complains of back pain. She states that she's had a long history of recurrent urinary tract infection commonly presenting with right back pain. She's been hospitalized in the last year on 2 separate occasions with back pain nausea and vomiting. She denies dysuria, frequency, urgency and hematuria. She has not gone through menopause. HPI 1-Duration: Years 2-Location: Right flank 3-Severity: Severe 4-Quality: 5-Context:? 6-Timin-Modifying ?factors: 8-Associated signs AND?symptoms: None frequency? No urgency? No Nocturia? No Dysuria? No GLUCOSE UA (POCT) Negative 07/23/2018 BILIRUBIN UA (POCT) Negative 07/23/2018 KETONE UA (POCT) Negative 07/23/2018 SPECIFIC GRAVITY UA (POCT) 1.015 07/23/2018 HEMOGLOBIN/BLOOD UA (POCT) Trace-intact 07/23/2018 PH UA (POCT) 5.5 07/23/2018 PROTEIN UA (POCT) Trace 07/23/2018 UROBILINOGEN UA (POCT) 0.2 07/23/2018 NITRITE UA (POCT) Negative 07/23/2018 LEUKOCYTES UA (POCT) Moderate 07/23/2018 COLOR UA (POCT) Yellow 07/23/2018 CLARITY UA (POCT) Slightly Cloudy 07/23/2018 Creatinine Date Value Ref Range Status 03/11/2018 0.66 0.58 - 0.96 mg/dL Final 04/19/2017 0.71 0.58 - 0.96 mg/dL Final 05/08/2015 0.63 (L) 0.70 - 1.40 mg/dL Final Medications/allergies reviewed and updated. PAST MEDICAL HISTORY Diagnosis Date - Adjustment disorder with depressed mood 10/08/2007 - Anxiety - Complete tear of right rotator cuff 04/03/2016 - Kidney stone on right side 07/09/2018 [place] - Non morbid obesity 04/18/2016 PAST SURGICAL HISTORY Procedure Laterality Date - ARTHROS SHLDR DX W/WO SYNV BX Right 04/19/2016 Right shoulder arthroscopy - LAP CHOLECYSTECT/CHOLANGIOGRAPHY 03-12-07 - LIGATE FALLOPIAN TUBE Tubal ligation - NOVASURE ABLATION WO HYSTREOSCOPY 2010 - REMOVE TONSILS/ADENOIDS,<12 Y/O T/A (under age 12 years) - REPAIR COMPL ROTATOR CUFF AVULSN,CHR Right 04/19/2016 Open SAD and RCR FAMILY HISTORY Problem Relation Age of Onset - Allergies Mother - None Father unknown to pt - Hypertension Maternal Grandmother - Coronary Artery Disease Maternal Grandmother Social History Substance Use Topics - Smoking status: Never Smoker - Smokeless tobacco: Never Used - Alcohol use Yes Comment: rarely ALLERGIES: ALLERGIES No Known Allergies CURRENT OUTPATIENT MEDICATIONS: sulfamethoxazole-trimethoprim (BACTRIM DS) 800-160 mg per tablet Take 1 tablet by mouth twice daily for 10 days. citalopram (CELEXA) 40 mg tablet 1 tablet once daily. ALPRAZolam (XANAX) 0.25 mg tablet Take 1 tablet by mouth three times daily as needed for Anxiety. albuterol HFA (PROAIR HFA) 90 mcg/actuation inhaler Inhale 2 Puffs as instructed every 4 hours as needed. cholecalciferol, Vitamin D3, (VITAMIN D3) 50,000 unit cap capsule Take 1 capsule by mouth once each week. omeprazole (PRILOSEC) 20 mg capsule Take 1 capsule by mouth daily before breakfast. 1/2 hr before meal. triamcinolone (KENALOG) 0.025 % cream Apply 1 application to affected area twice daily. Until gone REVIEW OF SYSTEMS: Const: Well appearing, in no acute distress, well-hydrated, well-nourished, alert, awake, oriented to time, place and person. HEENT: Negative for frequent or significant headaches. No changes in hearing or vision, no nose bleeds or other nasal problems. Neck: Negative for lumps, goiter, pain and significant neck swelling. Resp: Negative for cough, wheezing or shortness of breath. CV: Negative for chest pain, leg swelling or palpitations. GI: Negative for abdominal discomfort, blood in stools or black stools and change in bowel habits. : See HPI Musculoskelatal: Negative for joint pain or swelling, back pain or muscle pain. Skin: No skin lesions. Psych: Negative for sleep disturbance, mood disorder and recent psychosocial stressors. Donald/Lymph: Negative for prolonged bleeding, bruising easily or swollen nodes. Endocrine: Negative for cold or heat intolerance, polyuria, polydipsia and goiter. Neuro: No history of headaches, syncope, paralysis, seizures or tremors. PHYSICAL EXAMINATION: VITAL SIGNS: BP 110/76 Pulse 70 Ht 5' 4 (1.63m) Wt 251 lb (113.9kg) SpO2 97% BMI 43.06 kg/(m2). General appearance: Well appearing, in no acute distress, well-hydrated, well-nourished, alert, awake, oriented to time, place and person. Heart: RRR without murmur, gallop, or rubs. No ectopy Lungs: Lungs clear to auscultation. No wheezing, rhonchi, rales Neck: {Normal Abdomen: Normal abdominal exam, soft, nontender Musc: Normal Neuro: Normal Lymph: Normal GENITOURINARY: External Genitalia: Normal Rectal: Not indicated Lymph Nodes: No inguinal lymphadenopathy.. Urethral catheter placed under sterile conditions for sample. Volume drained 30cc Atrophic Vaginitis: No LAST LAB RESULTS: No results found for this basename: inr:1,ptsec:1 Glucose (mg/dL) Date Value 03/11/2018 95 Potassium (mmol/L) Date Value 03/11/2018 4.0 Sodium (mmol/L) Date Value 03/11/2018 137 Chloride (mmol/L) Date Value 03/11/2018 100 CO2 (mmol/L) Date Value 03/11/2018 24 Creatinine (mg/dL) Date Value 03/11/2018 0.66 BUN (mg/dL) Date Value 03/11/2018 14 Anion Gap (mmol/L) Date Value 03/11/2018 13 Calcium (mg/dL) Date Value 03/11/2018 8.6 Protein, Total (g/dL) Date Value 03/11/2018 6.9 Albumin (g/dL) Date Value 03/11/2018 3.9 Bilirubin, Total (mg/dL) Date Value 03/11/2018 0.4 Alkaline Phosphatase (U/L) Date Value 03/11/2018 81 AST (U/L) Date Value 03/11/2018 23 ALT (U/L) Date Value 03/11/2018 21 Glucose Date Value Ref Range Status 03/11/2018 95 74 - 99 mg/dL Final Comment: The [place] [employer] (ADA) provides guidance for cutoff values for fasting glucose and random glucose. The ADA defines fasting as no caloric intake for at least 8 hours. Fasting plasma glucose results between 100 to 125 mg/dL indicate increased risk for diabetes (prediabetes). Fasting plasma glucose results greater than or equal to 126 mg/dL meet the criteria for diagnosis of diabetes. In the absence of unequivocal hyperglycemia, results should be confirmed by repeat testing. In a patient with classic symptoms of hyperglycemia or hyperglycemic crisis, random plasma glucose results greater than or equal to 200 mg/dL meet the criteria for diagnosis of diabetes. Reference: Standards of Medical Care in Diabetes 2016, [place] [employer]. Diabetes Care. 2016.39(Suppl 1). I personally reviewed the patient's radiology images and dictation and I agree with the radiologist's opinion. I personally reviewed the patient's laboratory studies. 07/08/2018: Renal ultrasound: Normal kidneys. Normal bladder 07/08/2018: CT scan abdomen and pelvis without contrast: Punctate left kidney stones less than 1 mm. No hydronephrosis IMPRESSION: Right flank pain. I cannot find a urologic etiology to her flank pain. I do not currently suspect recurrent urinary tract infections. It's unclear to me if she's had any documented urinary tract infections. I reviewed her previous records and I see no evidence of urinary tract infection. I have indicated patient that we'll check her catheterized urine sample today. She is currently feeling pain level of a 6 out of 10 today. Certainly a negative urine culture today would increase her chances of having a non-urologic process. She has less than 1 mm stones in her left kidney. I do not believe these are clinically significant. PLAN: Urine culture. Follow-up with her primary care physician. Written and verbal health teaching given to patient, patient verbalizes understanding and agrees with treatment plan. Patient will call if worsening symptoms, no improvement, or any other concerns. Plan discussed. Xuan Julien MD Electronically Signed: Xuan Julien MD July 23, 2018 11:00 AM CNOV Observed: 07/23/2018 Status: COMPLETED Source: [place] 10:00 AM [facility] REPOSITORY Office Visit (UROLMD) PRICE CARDENAS ([id number]) 1970 F Date Time Provider Department 07/23/18 10:00 AM XUAN JULIEN UROALBERTOD During your visit today, we recorded the following information about you: Pulse Blood pressure Weight Height 70/minute 110/76 113.9 kg 1.626 m [facility] 07/23/2018 10:04 AM Signed Patient presents with: New Patient: Recurrent UTI Post void bladder scan completed. 75 ml residual remaining. Results reported to Dr. Anaya Julien MD 07/23/2018 11:07 AM Signed Consultation requested by Yi Brandt MD for an opinion regarding Patient presents with: New Patient: Recurrent UTI . My final recommendations will be communicated back to the requesting physician by way of shared Medical record or letter to requesting physician via US mail. HISTORY OF PRESENT ILLNESS: Price Cardenas 47 year old female who complains of back pain. She states that she's had a long history of recurrent urinary tract infection commonly presenting with right back pain. She's been hospitalized in the last year on 2 separate occasions with back pain nausea and vomiting. She denies dysuria, frequency, urgency and hematuria. She has not gone through menopause. HPI 1-Duration: Years 2-Location: Right flank 3-Severity: Severe 4-Quality: 5-Context:? 6-Timin-Modifying ?factors: 8-Associated signs AND?symptoms: None frequency? No urgency? No Nocturia? No Dysuria? No GLUCOSE UA (POCT) Negative 07/23/2018 BILIRUBIN UA (POCT) Negative 07/23/2018 KETONE UA (POCT) Negative 07/23/2018 SPECIFIC GRAVITY UA (POCT) 1.015 07/23/2018 HEMOGLOBIN/BLOOD UA (POCT) Trace-intact 07/23/2018 PH UA (POCT) 5.5 07/23/2018 PROTEIN UA (POCT) Trace 07/23/2018 UROBILINOGEN UA (POCT) 0.2 07/23/2018 NITRITE UA (POCT) Negative 07/23/2018 LEUKOCYTES UA (POCT) Moderate 07/23/2018 COLOR UA (POCT) Yellow 07/23/2018 CLARITY UA (POCT) Slightly Cloudy 07/23/2018 Creatinine Date Value Ref Range Status 03/11/2018 0.66 0.58 - 0.96 mg/dL Final 04/19/2017 0.71 0.58 - 0.96 mg/dL Final 05/08/2015 0.63 (L) 0.70 - 1.40 mg/dL Final Medications/allergies reviewed and updated. PAST MEDICAL HISTORY Diagnosis Date - Adjustment disorder with depressed mood 10/08/2007 - Anxiety - Complete tear of right rotator cuff 04/03/2016 - Kidney stone on right side 07/09/2018 [place] - Non morbid obesity 04/18/2016 PAST SURGICAL HISTORY Procedure Laterality Date - ARTHROS SHLDR DX W/WO SYNV BX Right 04/19/2016 Right shoulder arthroscopy - LAP CHOLECYSTECT/CHOLANGIOGRAPHY 03-12-07 - LIGATE FALLOPIAN TUBE Tubal ligation - NOVASURE ABLATION WO HYSTREOSCOPY 2010 - REMOVE TONSILS/ADENOIDS,<12 Y/O T/A (under age 12 years) - REPAIR COMPL ROTATOR CUFF AVULSN,CHR Right 04/19/2016 Open SAD and RCR FAMILY HISTORY Problem Relation Age of Onset - Allergies Mother - None Father unknown to pt - Hypertension Maternal Grandmother - Coronary Artery Disease Maternal Grandmother Social History Substance Use Topics - Smoking status: Never Smoker - Smokeless tobacco: Never Used - Alcohol use Yes Comment: rarely ALLERGIES: ALLERGIES No Known Allergies CURRENT OUTPATIENT MEDICATIONS: sulfamethoxazole-trimethoprim (BACTRIM DS) 800-160 mg per tablet Take 1 tablet by mouth twice daily for 10 days. citalopram (CELEXA) 40 mg tablet 1 tablet once daily. ALPRAZolam (XANAX) 0.25 mg tablet Take 1 tablet by mouth three times daily as needed for Anxiety. albuterol HFA (PROAIR HFA) 90 mcg/actuation inhaler Inhale 2 Puffs as instructed every 4 hours as needed. cholecalciferol, Vitamin D3, (VITAMIN D3) 50,000 unit cap capsule Take 1 capsule by mouth once each week. omeprazole (PRILOSEC) 20 mg capsule Take 1 capsule by mouth daily before breakfast. 1/2 hr before meal. triamcinolone (KENALOG) 0.025 % cream Apply 1 application to affected area twice daily. Until gone REVIEW OF SYSTEMS: Const: Well appearing, in no acute distress, well-hydrated, well-nourished, alert, awake, oriented to time, place and person. HEENT: Negative for frequent or significant headaches. No changes in hearing or vision, no nose bleeds or other nasal problems. Neck: Negative for lumps, goiter, pain and significant neck swelling. Resp: Negative for cough, wheezing or shortness of breath. CV: Negative for chest pain, leg swelling or palpitations. GI: Negative for abdominal discomfort, blood in stools or black stools and change in bowel habits. : See HPI Musculoskelatal: Negative for joint pain or swelling, back pain or muscle pain. Skin: No skin lesions. Psych: Negative for sleep disturbance, mood disorder and recent psychosocial stressors. Donald/Lymph: Negative for prolonged bleeding, bruising easily or swollen nodes. Endocrine: Negative for cold or heat intolerance, polyuria, polydipsia and goiter. Neuro: No history of headaches, syncope, paralysis, seizures or tremors. PHYSICAL EXAMINATION: VITAL SIGNS: BP 110/76 Pulse 70 Ht 5' 4 (1.63m) Wt 251 lb (113.9kg) SpO2 97% BMI 43.06 kg/(m2). General appearance: Well appearing, in no acute distress, well-hydrated, well-nourished, alert, awake, oriented to time, place and person. Heart: RRR without murmur, gallop, or rubs. No ectopy Lungs: Lungs clear to auscultation. No wheezing, rhonchi, rales Neck: {Normal Abdomen: Normal abdominal exam, soft, nontender Musc: Normal Neuro: Normal Lymph: Normal GENITOURINARY: External Genitalia: Normal Rectal: Not indicated Lymph Nodes: No inguinal lymphadenopathy.. Urethral catheter placed under sterile conditions for sample. Volume drained 30cc Atrophic Vaginitis: No LAST LAB RESULTS: No results found for this basename: inr:1,ptsec:1 Glucose (mg/dL) Date Value 03/11/2018 95 Potassium (mmol/L) Date Value 03/11/2018 4.0 Sodium (mmol/L) Date Value 03/11/2018 137 Chloride (mmol/L) Date Value 03/11/2018 100 CO2 (mmol/L) Date Value 03/11/2018 24 Creatinine (mg/dL) Date Value 03/11/2018 0.66 BUN (mg/dL) Date Value 03/11/2018 14 Anion Gap (mmol/L) Date Value 03/11/2018 13 Calcium (mg/dL) Date Value 03/11/2018 8.6 Protein, Total (g/dL) Date Value 03/11/2018 6.9 Albumin (g/dL) Date Value 03/11/2018 3.9 Bilirubin, Total (mg/dL) Date Value 03/11/2018 0.4 Alkaline Phosphatase (U/L) Date Value 03/11/2018 81 AST (U/L) Date Value 03/11/2018 23 ALT (U/L) Date Value 03/11/2018 21 Glucose Date Value Ref Range Status 03/11/2018 95 74 - 99 mg/dL Final Comment: The [place] [employer] Association (ADA) provides guidance for cutoff values for fasting glucose and random glucose. The ADA defines fasting as no caloric intake for at least 8 hours. Fasting plasma glucose results between 100 to 125 mg/dL indicate increased risk for diabetes (prediabetes). Fasting plasma glucose results greater than or equal to 126 mg/dL meet the criteria for diagnosis of diabetes. In the absence of unequivocal hyperglycemia, results should be confirmed by repeat testing. In a patient with classic symptoms of hyperglycemia or hyperglycemic crisis, random plasma glucose results greater than or equal to 200 mg/dL meet the criteria for diagnosis of diabetes. Reference: Standards of Medical Care in Diabetes 2016, [place] [employer] Association. Diabetes Care. 2016.39(Suppl 1). I personally reviewed the patient's radiology images and dictation and I agree with the radiologist's opinion. I personally reviewed the patient's laboratory studies. 07/08/2018: Renal ultrasound: Normal kidneys. Normal bladder 07/08/2018: CT scan abdomen and pelvis without contrast: Punctate left kidney stones less than 1 mm. No hydronephrosis IMPRESSION: Right flank pain. I cannot find a urologic etiology to her flank pain. I do not currently suspect recurrent urinary tract infections. It's unclear to me if she's had any documented urinary tract infections. I reviewed her previous records and I see no evidence of urinary tract infection. I have indicated patient that we'll check her catheterized urine sample today. She is currently feeling pain level of a 6 out of 10 today. Certainly a negative urine culture today would increase her chances of having a non-urologic process. She has less than 1 mm stones in her left kidney. I do not believe these are clinically significant. PLAN: Urine culture. Follow-up with her primary care physician. Written and verbal health teaching given to patient, patient verbalizes understanding and agrees with treatment plan. Patient will call if worsening symptoms, no improvement, or any other concerns. Plan discussed. Xuan Julien MD Electronically Signed: Xuan Julien MD July 23, 2018 11:00 AM Xuan Julien MD 07/23/2018 11:20 AM Signed Addended by: XUAN JULIEN MD on: 07/23/2018 11:20 AM Modules accepted: Orders Referring Provider: YI BOLTON [[id number]] Allergies As of Date: 07/23/2018 (No Known Allergies) Date Reviewed: 07/23/2018 Reviewed by: Xuan Julien - Fully Assessed Reason for Visit: New Patient [172] Cmt: Recurrent UTI Primary Visit Diagnosis:Right flank pain [R10.9] Other Visit Diagnoses:Obesity, Class III, BMI 40-49.9 (morbid obesity) (HCC) [E66.01] Kidney stones [N20.0] Order(s):UA DIP, URINE (POC) [6560166] Order #: [id number]. #:[id number] URINE CULTURE [SQURCUL] Order #: [id number] FUTURE Prescriptions as of 07/23/2018 Sig: SULFAMETHOXAZOLE 800 MG-TRIME* Take 1 tablet by mouth twice * CITALOPRAM 40 MG TABLET 1 tablet once daily. ALPRAZOLAM 0.25 MG TABLET Take 1 tablet by mouth three * ALBUTEROL SULFATE HFA 90 MCG/* Inhale 2 Puffs as instructed * Patient not taking: Reported on 07/23/2018 CHOLECALCIFEROL (VITAMIN D3) * Take 1 capsule by mouth once * Patient not taking: Reported on 07/23/2018 OMEPRAZOLE 20 MG CAPSULE,HORTENCIA* Take 1 capsule by mouth daily* Patient not taking: Reported on 07/23/2018 TRIAMCINOLONE ACETONIDE 0.025* Apply 1 application to affect* Patient not taking: Reported on 07/23/2018 Problem List As Of Date 07/23/2018 Noted Resolved SKIN DISORDERS NEC [L98.8] INVALID FOR* ADJUSTMENT DISORDER WITH DEPRESSED MOOD [F43.21]INVALID FOR* Panic attack [F41.0] INVALID FOR* Anxiety [F41.9] INVALID FOR* Mammographic microcalcification [R92.0] INVALID FOR* Complete tear of right rotator cuff [M75.121] INVALID FOR* Obesity, Class III, BMI 40-49.9 (morbid obesity*INVALID FOR* Acute pain of right shoulder [M25.511] INVALID FOR* Weakness of shoulder [R29.898] INVALID FOR* Kidney stones [N20.0] INVALID FOR* Visit Notes: >> [facility] Jul 23, 2018 9:52 AM Status: Signed Patient presents with: New Patient: Recurrent UTI Post void bladder scan completed. 75 ml residual remaining. Results reported to Dr. Julien Letter Text Encounter Status:Closed by XUAN JULIEN MD on 07/23/18 PROGRESS Observed: 07/22/2018 Status: COMPLETED Source: [place] 10:[address] [facility] REPOSITORY HNO ID: [id number] Author: Yi Bolton Service: (none) Author Type: Physician Type: Progress Notes Filed: 07/22/2018 5:08 PM Note Text: Chief Complaint Patient presents with: Hospital Follow Up: [place], admitted on 07/08/18 and discharged 07/09/18 HPI Price Cardenas is a 47 year old female who presents here today for a hospital follow up. Pt here today for a follow up. Hospital f/u: Patient 1 week prior to being admitted started experiencing right lower back pain. Notes that she doesn't get typical UTI symptoms until it's too late and in her kidneys. On 07/08/18 she was seen in [place] ER and diagnosed with UTI and R kidney stone. Was given short term Rx of [place] and Cipro 250 mg 1 tab po bid for 5 days, which both have been completed. Pt still has pressure and right sided back pain. Pain does radiate to RLQ, described as a spasm. 6-7/10 pain scale and constant. 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 Making sure to keep hydrated and only having to urinate once jose a 12 hours shift or not at all. History of frequent UTI in the past. Has never been evaluated by Urology. Past medical history, appointments, medications, allergies reviewed. Previous Medical History PAST MEDICAL HISTORY Diagnosis Date - Adjustment disorder with depressed mood 10/08/2007 - Anxiety - Complete tear of right rotator cuff 04/03/2016 - Kidney stone on right side 07/09/2018 [place] - Non morbid obesity 04/18/2016 Previous Surgical History PAST SURGICAL HISTORY Procedure Laterality Date - ARTHROS SHLDR DX W/WO SYNV BX Right 04/19/2016 Right shoulder arthroscopy - LAP CHOLECYSTECT/CHOLANGIOGRAPHY 03-12-07 - LIGATE FALLOPIAN TUBE Tubal ligation - NOVASURE ABLATION WO HYSTREOSCOPY 2010 - REMOVE TONSILS/ADENOIDS,<12 Y/O T/A (under age 12 years) - REPAIR COMPL ROTATOR CUFF AVULSN,CHR Right 04/19/2016 Open SAD and RCR Family History FAMILY HISTORY Problem Relation Age of Onset - Allergies Mother - None Father unknown to pt - Hypertension Maternal Grandmother - Coronary Artery Disease Maternal Grandmother Patient Allergies ALLERGIES No Known Allergies Current Medications Current Outpatient Prescriptions on File Prior to Visit: albuterol HFA (PROAIR HFA) 90 mcg/actuation inhaler Inhale 2 Puffs as instructed every 4 hours as needed. citalopram (CELEXA) 40 mg tablet 1 tablet once daily. cholecalciferol, Vitamin D3, (VITAMIN D3) 50,000 unit cap capsule Take 1 capsule by mouth once each week. omeprazole (PRILOSEC) 20 mg capsule Take 1 capsule by mouth daily before breakfast. 1/2 hr before meal. triamcinolone (KENALOG) 0.025 % cream Apply 1 application to affected area twice daily. Until gone ALPRAZolam (XANAX) 0.25 mg tablet Take 1 tablet by mouth three times daily as needed for Anxiety. No current facility-administered medications on file prior to visit. Social History Social History Marital status: Spouse name: Yi Years of education: 12 Number of children: 3 Occupational History Occupation Employer Comment [employer] Social History Main Topics Smoking status: Never Smoker Smokeless tobacco: Never Used Alcohol use: Yes Comment: rarely Drug use: No Sexual activity: Yes Partners with: Male control/protection: Surgical Comment: bps EXAM: BP 94/72 (BP Site: Right Arm, BP Position: Sitting, BP Cuff Size: Regular Adult) Pulse 64 Temp 36.4 ?C (97.6 ?F) (Tympanic) Resp 16 Wt 113.9 kg (251 lb) BMI 41.77 kg/m? General Appearance: Well appearing, alert, in no acute distress, well-hydrated, well nourished. and Obese. Back:right lower back tenderness to palpation Lungs: Lungs clear to auscultation. No wheezing, rhonchi, rales. Heart: RRR without murmur, gallop, or rubs. No ectopy. Abdomen: mild right lower abd tenderness. Health Maintenance List INFLUENZA(1) due on 07/25/2018 MAMMOGRAM due on 09/11/2018 DIABETES SCREEN due on 03/11/2021 DTAP,TDAP,TD(2 - Td) due on 01/28/2022 PAP EVERY 5 YEARS due on 10/09/2022 HPV EVERY 5 YEARS due on 10/09/2022 LIPID SCREEN due on 03/11/2023 Data reviewed ER Docs ASSESSMENT/PLAN: 1. Hospital discharge follow-up - ICD9: V67.59, ICD10: Z09 (primary diagnosis) 2. Acute right-sided low back pain, with sciatica presence unspecified - ICD9: 724.2, ICD10: M54.5 - UA DIP B/O 3. Kidney stone - ICD9: 592.0, ICD10: N20.0 - UA DIP B/O 4. Recurrent UTI (urinary tract infection) - ICD9: 599.0, ICD10: N39.[address] on bactrim for 10 days, repeat urine culture, Urology consult - URINE CULTURE - CONSULT TO UROLOGY - SULFAMETHOXAZOLE 800 MG-TRIMETHOPRIM 160 MG TABLET Follow up prn I agree with the Chief Complaint, ROS, and Past Histories independently gathered by the clinical cryptologic support specialist and the remaining scribed note accurately describes my personal service to the patient. Yi Bolton MD The documentation for this note was completed by Bhavana Sofia Ma acting as scribe for Yi Bolton MD. July 22, 2018 10:10 AM. CNOV Observed: 07/22/2018 Status: COMPLETED Source: [place] 10:00 AM [facility] REPOSITORY Office Visit (FAMPWS) PRICE CARDENAS ([id number]) 1970 F Date Time Provider Department 07/22/18 10:00 AM YI BOLTON During your visit today, we recorded the following information about you: Temperature Pulse Respiration Blood pressure 97.6 degrees 64/minute 16/minute 94/72 Weight 113.9 kg Yi Bolton MD 07/22/2018 5:08 PM Signed Chief Complaint Patient presents with: Hospital Follow Up: [facility], admitted on 07/08/18 and discharged 07/09/18 HPI Price Cardenas is a 47 year old female who presents here today for a hospital follow up. Pt here today for a follow up. Hospital f/u: Patient 1 week prior to being admitted started experiencing right lower back pain. Notes that she doesn't get typical UTI symptoms until it's too late and in her kidneys. On 07/08/18 she was seen in [place] ER and diagnosed with UTI and R kidney stone. Was given short term Rx of [place] and Cipro 250 mg 1 tab po bid for 5 days, which both have been completed. Pt still has pressure and right sided back pain. Pain does radiate to RLQ, described as a spasm. 6-7/10 pain scale and constant. 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 Making sure to keep hydrated and only having to urinate once jose a 12 hours shift or not at all. History of frequent UTI in the past. Has never been evaluated by Urology. Past medical history, appointments, medications, allergies reviewed. Previous Medical History PAST MEDICAL HISTORY Diagnosis Date - Adjustment disorder with depressed mood 10/08/2007 - Anxiety - Complete tear of right rotator cuff 04/03/2016 - Kidney stone on right side 07/09/2018 [place] - Non morbid obesity 04/18/2016 Previous Surgical History PAST SURGICAL HISTORY Procedure Laterality Date - ARTHROS SHLDR DX W/WO SYNV BX Right 04/19/2016 Right shoulder arthroscopy - LAP CHOLECYSTECT/CHOLANGIOGRAPHY 03-12-07 - LIGATE FALLOPIAN TUBE Tubal ligation - NOVASURE ABLATION WO HYSTREOSCOPY 2010 - REMOVE TONSILS/ADENOIDS,<12 Y/O T/A (under age 12 years) - REPAIR COMPL ROTATOR CUFF AVULSN,CHR Right 04/19/2016 Open SAD and RCR Family History FAMILY HISTORY Problem Relation Age of Onset - Allergies Mother - None Father unknown to pt - Hypertension Maternal Grandmother - Coronary Artery Disease Maternal Grandmother Patient Allergies ALLERGIES No Known Allergies Current Medications Current Outpatient Prescriptions on File Prior to Visit: albuterol HFA (PROAIR HFA) 90 mcg/actuation inhaler Inhale 2 Puffs as instructed every 4 hours as needed. citalopram (CELEXA) 40 mg tablet 1 tablet once daily. cholecalciferol, Vitamin D3, (VITAMIN D3) 50,000 unit cap capsule Take 1 capsule by mouth once each week. omeprazole (PRILOSEC) 20 mg capsule Take 1 capsule by mouth daily before breakfast. 1/2 hr before meal. triamcinolone (KENALOG) 0.025 % cream Apply 1 application to affected area twice daily. Until gone ALPRAZolam (XANAX) 0.25 mg tablet Take 1 tablet by mouth three times daily as needed for Anxiety. No current facility-administered medications on file prior to visit. Social History Social History Marital status: Spouse name: Yi Years of education: 12 Number of children: 3 Occupational History Occupation Employer Comment [employer] Social History Main Topics Smoking status: Never Smoker Smokeless tobacco: Never Used Alcohol use: Yes Comment: rarely Drug use: No Sexual activity: Yes Partners with: Male control/protection: Surgical Comment: bps EXAM: BP 94/72 (BP Site: Right Arm, BP Position: Sitting, BP Cuff Size: Regular Adult) Pulse 64 Temp 36.4 ?C (97.6 ?F) (Tympanic) Resp 16 Wt 113.9 kg (251 lb) BMI 41.77 kg/m? General Appearance: Well appearing, alert, in no acute distress, well-hydrated, well nourished. and Obese. Back:right lower back tenderness to palpation Lungs: Lungs clear to auscultation. No wheezing, rhonchi, rales. Heart: RRR without murmur, gallop, or rubs. No ectopy. Abdomen: mild right lower abd tenderness. Health Maintenance List INFLUENZA(1) due on 07/25/2018 MAMMOGRAM due on 09/11/2018 DIABETES SCREEN due on 03/11/2021 DTAP,TDAP,TD(2 - Td) due on 01/28/2022 PAP EVERY 5 YEARS due on 10/09/2022 HPV EVERY 5 YEARS due on 10/09/2022 LIPID SCREEN due on 03/11/2023 Data reviewed ER Docs ASSESSMENT/PLAN: 1. Hospital discharge follow-up - ICD9: V67.59, ICD10: Z09 (primary diagnosis) 2. Acute right-sided low back pain, with sciatica presence unspecified - ICD9: 724.2, ICD10: M54.5 - UA DIP B/O 3. Kidney stone - ICD9: 592.0, ICD10: N20.0 - UA DIP B/O 4. Recurrent UTI (urinary tract infection) - ICD9: 599.0, ICD10: N39.[address] on bactrim for 10 days, repeat urine culture, Urology consult - URINE CULTURE - CONSULT TO UROLOGY - SULFAMETHOXAZOLE 800 MG-TRIMETHOPRIM 160 MG TABLET Follow up prn I agree with the Chief Complaint, ROS, and Past Histories independently gathered by the clinical cryptologic support specialist and the remaining scribed note accurately describes my personal service to the patient. Yi Bolton MD The documentation for this note was completed by Bhavana Sofia Ma acting as scribe for Yi Bolton MD. July 22, 2018 10:10 AM. Referring Provider: SELF [[id number]] Allergies As of Date: 07/22/2018 (No Known Allergies) Date Reviewed: 07/22/2018 Reviewed by: Bhavana Sofia Ma - Fully Assessed Reason for Visit: Hospital Follow Up [177] Cmt: [facility], admitted on 07/08/18 and discharged 07/09/18 Reason For Visit History Recorded Primary Visit Diagnosis:Hospital discharge follow-up [Z09] Other Visit Diagnoses:Acute right-sided low back pain, with sciatica presence unspecified [M54.5] Kidney stone [N20.0] Recurrent UTI (urinary tract infection) [N39.0] Order(s):UA DIP B/O [8299607] Order #: [id number] URINE CULTURE [SQURCUL] Order #: [id number] CONSULT TO UROLOGY [9041] Order #: [id number]: 1 sulfamethoxazole-trimethoprim (BACTRIM DS) 800-160 mg per tabletTake 1 tablet by mouth twice daily for 10 days.Disp: 20 tabletRfl: 0 Prescriptions as of 07/22/2018 Sig: ALBUTEROL SULFATE HFA 90 MCG/* Inhale 2 Puffs as instructed * CITALOPRAM 40 MG TABLET 1 tablet once daily. SULFAMETHOXAZOLE 800 MG-TRIME* Take 1 tablet by mouth twice * CHOLECALCIFEROL (VITAMIN D3) * Take 1 capsule by mouth once * OMEPRAZOLE 20 MG CAPSULE,HORTENCIA* Take 1 capsule by mouth daily* TRIAMCINOLONE ACETONIDE 0.025* Apply 1 application to affect* ALPRAZOLAM 0.25 MG TABLET Take 1 tablet by mouth three * Problem List As Of Date 07/22/2018 Noted Resolved SKIN DISORDERS NEC [L98.8] INVALID FOR* ADJUSTMENT DISORDER WITH DEPRESSED MOOD [F43.21]INVALID FOR* Panic attack [F41.0] INVALID FOR* Anxiety [F41.9] INVALID FOR* Mammographic microcalcification [R92.0] INVALID FOR* Complete tear of right rotator cuff [M75.121] INVALID FOR* Obesity, Class III, BMI 40-49.9 (morbid obesity*INVALID FOR* Acute pain of right shoulder [M25.511] INVALID FOR* Weakness of shoulder [R29.898] INVALID FOR* Prescriptions ordered this encounter Disp Refills Start End SULFAMETHOXAZOLE 800 MG-TRIMETHOPRIM* 20 t* 0 07/22/2018 08/01/2018 Cmt: Ok to give generic equivalent Route: ORAL Sig: Take 1 tablet by mouth twice daily for 10 days. Disposition: Return if symptoms worsen or fail to improve. Follow-up and Disposition History Recorded Encounter Status:Closed by YI BOLTON MD on 07/22/18 Observed: 07/22/2018 Status: F Source: [place] URINE CULTURE 4:57 AM [facility] REPOSITORY Sp. Request/Comment: - Specimen received in preservative Culture Result - 10,000 - <50,000 CFU/ml Normal urogenital jess Performed By: #### URCUL #### [facility] [address] [place], [place] [address] EMERGENCY REPORT Observed: 07/15/2018 Status: F Source: [place] 9:01 PM [facility] EMERGENCY ROOM REPORT NAME ACCOUNT SEX AGE ADMIT DISCHARGE PT MED. RECORD# NUMBER DATE DATE TYPE MARYBETH [id number] Lianna 47 07/07/18 2 PRICE [id number] ROOM: [facility] DATE OF : 1970 DICTATING PHYSICIAN: Mary Fragoso CHIEF COMPLAINT/HISTORY OF PRESENT ILLNESS: This 47-year-old female came to the emergency room with pain in the right back area. This pain started about a week ago and has been slowly intensifying and seems to be, as she indicates, in the right CVA area, kind of radiates in a band up to the anterior axillary line. She states that most of the time motion does not effect the discomfort, but the discomfort does seem to have a little bit of a waxing and waning quality about it. At one time she could arch her back a little bit and cause discomfort. She denies trauma. She states she did have this one time previous and was treated with pain medications. She has also had another time previous in which nothing was found but then she had E. coli growing on a blood culture. She was admitted at that time. She has been taking Tylenol and ibuprofen for discomfort with limited improvement. She has not seen her family doctor, Dr. Bolton for this problem or anyone else. REVIEW OF SYSTEMS: She states that she has had some nausea and vomiting today associated with this. She denies any diarrhea. She denies any discomfort to urination. She denies any frequency of urination. She denies any blood in her urine. She denies any headache. She denies any change in vision, hearing or speech. She denies any cough, congestion, shortness of breath, difficulty breathing. She denies any chest pain. States she does not have any chronic diabetes or coronary artery disease. She denies any numbness or tingling to her extremities. She denies previous kidney stones. PHYSICAL EXAMINATION: On examination she is pleasant and alert. She appears as one who has a kidney stone. She just cannot seem to stay still. In room number 3. Her head is normocephalic. Tympanic membranes, canals, pinnae are normal. Pharynx is symmetric without stridor, hoarseness or injection. Neck is supple. There is no anterior, posterior or supraclavicular nodes. Lungs are clear. There is no expiratory wheeze, rales, rhonchi or paradoxical chest motion. No rash on the back, particularly in the area of where she complains about the complaint. I was looking for zoster but do not see any there. She is tender in that c.v.a. area and anteriorly to the anterior axillary line. There is no rash anteriorly on her abdomen. She is somewhat overweight, no offense, but there is no abdominal tenderness. There is no splinting respirations. Heart rate and rhythm are regular. PMI is left breast. She has good radial pulses, femoral pulses and dorsalis pedis pulses. Turning from side to side does not seem to elicit the discomfort. Sitting up and lying back does not elicit the discomfort except if she tries to arch her back, she has some discomfort. Page 1 of 2 PRICE CARDENAS Emergency Room Report DIAGNOSTIC DATA: Did , urine and labs were obtained. was negative. Urine had 6 to 10 white cells. No red cells, 1+ bacteria and many epithelial cells, otherwise normal. Her WBCs essentially was normal. 8.3 was her white count. Differential was normal. Chemistries are essentially normal. Lipase was low at 13. Urine was okay. Nothing added up here, but her OARRS was negative. The CT did not show any evidence of kidney stone pathology and the patient continued to be very uncomfortable. EMERGENCY DEPARTMENT COURSE AND TREATMENT: She had an IV placed. She was given Toradol and Zofran IV. I anticipate this would act as a kidney stone, but she did not obtain any relief with that medicine. We gave her a dose of Dilaudid IV 0.5 mg, 60 IV and that did not help her, which this was given to her after the Zofran and the Toradol did not provide any relief. So we gave her additional Dilaudid and then some Ativan. With that, she felt a little bit better after that. DIAGNOSIS: Intractable right flank pain, etiology to be determined. PLAN/DISPOSITION: The patient I did not think should go home because she was continuing to have the pain discomfort and I did not have a diagnosis. I talked to her about going home and coming back in the morning, but it seemed like that was a rather senseless gesture since she continued to have pain now, so I talked to Dr. Lackey and he agreed to admit her on an observation basis and will treat her pain. She had IV antibiotics here in the emergency room after blood cultures were obtained and she was agreeable to an observation admission. Dictated By: Mary Fragoso DO 07/08/18 04:42 JOB #: [id number] Transcribed By: [email or web address] 07/08/18 12:58 Electronically signed by: E-SIGN MARY FRAGOSO DO 07/15/18 21:00 Page 2 of 2 PRICE CARDENAS Emergency Room Report DISCHARGE SUMMARY Observed: 07/14/2018 Status: F [facility] DIS[facility]GE SUMMARY NAME ACCOUNT SEX AGE ADMIT DISCHARGE PT MED. RECORD# NUMBER DATE DATE TYPE PRICE CARDENAS [id number] F 47 07/07/18 07/09/18 2 [id number] ROOM: [facility] DATE OF : 1970 DICTATING PHYSICIAN: Adalgisa Lackey ADMITTING DIAGNOSIS: Urinary tract infection. FINAL DIAGNOSES: 1. Renal stone. 2. Right-sided abdominal pain. 3. Obesity. 4. Possible urinary tract infection with a urine culture that did reveal 3 colonies with possible contamination; other etiology may need to be excluded. 5. Small lesion on the anterior aspect between the sacrum and the rectum of undetermined source, unchanged from prior x-ray. HOSPITAL COURSE: This is a 47-year-old lady with a history of obesity and UTIs. The patient was in her usual state of health. She presented to the Emergency Room with right-sided abdominal pain radiating downward. Urine did reveal a few white blood cells and some red blood cells. It was sent for culture. The patient was slightly febrile. She had a fever and chills and was initiated on IV antibiotics and IV fluids. CT scan in the form of a KUB did reveal a kidney stone, and also there were findings compatible with a lesion in the anterior aspect of the sacrum and behind the rectum of undetermined source. The patient improved rapidly and was given IV fluids. Her pain was under excellent control. Her white count went back to normal, and urine culture revealed contamination, but this does not exclude a UTI with a certain organism. I discussed the findings on the CT scan in regard to the lesion anterior to the sacrum with the patient. This lesion has not changed over time. I explained to her the importance to have a colonoscopy to rule out malignancy as well as SKI LIFT OPERATOR evaluation. She understood those facts, and she was discharged home in stable condition. MEDICATIONS ON DISCHARGE: Cipro 250 mg b.i.d. for 5 days. DISCHARGE INSTRUCTIONS/PLAN: The patient should follow up to have a colonoscopy as well as SKI LIFT OPERATOR referral. Follow up with Dr. Bolton. Dictated By: Adalgisa Lackey MD 07/09/18 21:47 JOB #: [id number] Transcribed By: eva 07/10/18 08:15 Electronically signed by: DUNG LACKEY MD 07/14/18 18:27 Page 1 of 1 PRICE CARDENAS Discharge Summary HISTORY AND PHYSICAL Observed: 07/14/2018 Status: F Source: [facility] EXAM 6:23 PM [facility] HISTORY & PHYSICAL NAME ACCOUNT SEX AGE ADMIT DISCHARGE PT MED. RECORD# NUMBER DATE DATE TYPE MARYBETH [id number] F 47 07/07/18 2 PRICE [id number] ROOM: 314 DATE OF : [birth year] DICTATING PHYSICIAN: Adalgisa Lackey TIME SEEN: 12:40 p.m. CHIEF COMPLAINT: On admission, fever and chills. HISTORY OF PRESENT ILLNESS: This is a 47-year-old female with past medical history significant for recurrent urinary tract infection in the past, depression with anxiety who states she had urinary symptoms last week. She increased her fluids and tried to drink cranberry juice. It did not get better. She then yesterday had elevated fever, shaking chills, burning with urination. She came to the emergency room. She had right-sided flank pain. Laboratory studies were completed with white count of 8.3. She had BUN of 13, creatinine of 0.7, and urinalysis showed 6-10 WBCs. Cultures were obtained and she was admitted for further management. Upon evaluation this morning, she still has right-sided flank pain, not feeling well. PAST MEDICAL HISTORY: (1) Recurrent urinary tract infections. (2) Anxiety. (3) Depression. PAST SURGICAL HISTORY: Tonsillectomy, tubal ligation, cholecystectomy, rotator cuff repair. MEDICATIONS: Current medications at home: Celexa 40 mg daily, ProAir inhaler 2 puffs q4 hours p.r.n., and vitamin D3 5000 international units once per week. FAMILY HISTORY: Father had history of coronary artery disease. No cancer in the family. SOCIAL HISTORY: Patient does not smoke or drink alcohol. She works in a factory. She lives at home. REVIEW OF SYSTEMS: Denies any headache or acute visual changes. She has generalized weakness, fatigue, fever, shaking chills. No chest pain. No shortness of breath. She has had dysuria. She has had urinary tract infections in the past. She did wait for about a week to come in to the emergency room. She thought it would get better. The rest of the review of systems were discussed and were negative. PHYSICAL EXAMINATION GENERAL APPEARANCE: Patient was lying in bed in no acute distress. She is alert Page 1 of 3 PRICE CARDENAS History & Physical and cooperative. VITAL SIGNS: On admission, she was hypertensive with blood pressure 146/102, heart rate initially 55, temperature 97.2. This morning, blood pressure 95/62, heart rate 52, respirations 16, temperature 97.9, oxygen saturation 92% on room air. Weight 244 pounds with BMI of 41.92. HEENT: Unremarkable. NECK: Supple. No nodes. No masses. No JVD. No bruit. LUNGS: Normal respiratory effort. Equal lung expansion. Clear to auscultation bilaterally. HEART: Regular rate and rhythm with no murmurs or gallops appreciated. ABDOMEN: Obese, soft, nontender with right-sided flank pain. EXTREMITIES: Free of edema. NEUROLOGIC: She is alert and oriented. Mood, affect and memory within normal limits. Speech is clear. She answers questions appropriately. DIAGNOSTIC DATA: CT KUB completed in the emergency room nonobstructive nephrolithiasis on the left, fatty infiltration of the colon and stable indeterminate presacral mass. IMPRESSION/PLAN: 1. Acute pyelonephritis with possible sepsis. Patient is hypotensive, right-sided flank pain, abnormal urinalysis. She was placed on IV Levaquin, IV fluids, pain medication and antiemetics. Will obtain renal ultrasound. 2. Abnormal CT KUB. Patient may need further evaluation with colonoscopy as an outpatient. 3. Depression with anxiety. Will restart Celexa 40 mg daily as at home. Above was discussed with the patient, all of her questions were answered, and she verbalized understanding of the plan. I examined the patient myself, The above E&M is accurate reflection of work done by me Catrina Lackey M.D. Dictated by tomeka Andujar for Adalgisa Lackey M.D. 07/08/18 20:14 JOB #: [id number] Transcribed By: rosendo 07/08/18 20:17 Electronically signed by: Page 2 of 3 PRICE CARDENAS History & Physical ES ADALGISA LACKEY MD 07/14/18 18:23 Update to H&P: [ ] No changes: I have examined the patient and reviewed the H&P and there are no changes. [ ] As previously dictated with the following changes: PHYSICIAN SIGNATURE: TIME: DATE: Page 3 of 3 PRICE CARDENAS History & Physical PROGRESS Observed: 07/13/2018 Status: COMPLETED Source: [place] 1:44 PM [facility] REPOSITORY HNO ID: [id number] Author: Amber May LPN Service: (none) Author Type: (none) Type: Progress Notes Filed: 09/04/2018 4:13 AM Note Text: Left message for pt to call office. Amber May LPN CNPTOUTREACH Observed: 07/13/2018 Status: COMPLETED Source: [place] 12:00 AM [facility] REPOSITORY Patient Outreach (FAMPWS) PRICE CARDENAS ([id number]) 1970 F Date Time Provider Department 07/13/18 YI BOLTON FAMPWS During your visit today, we recorded the following information about you: Christina James LPN 09/04/2018 4:13 AM Signed TRANSITION CARE MANAGEMENT (TCM) INITIAL CONTACT Shipping Hand Outreach Provider Action/FYI: Initial contact with patient post discharge, spoke to . Patient identified by name and . SUMMARY: -Pt discharged from [facility] on 07/09/18. -Admitted for: UTI Do you have a hospital follow up appointment with your PCP? Appointment on 07/22/18 with PCP- Dr. Bolton. Yes. Remind patient of appointment date, time, and location. If not within 14 calendar days of discharge - please reschedule accordingly. MEDICATIONS: Many patients have questions or concerns about their medications once they are home. Were you prescribed any new medications? Yes, Cipro Were you told to hold any medications? No Were any of your medications discontinued? Yes, inhaler Do you have any questions about getting or taking your medications? No Your discharge instructions/After visit Summary (AVS) are important in guiding you through the recovery process. Is there anything I might help you understand? No Do you have all the necessary equipment and supplies at home? Yes Medical records from recent hospitalization: [facility] Amber May LPN 09/04/2018 4:13 AM Signed Left message for pt to call office. Amber May LPN Allergies As of Date: 07/13/2018 (No Known Allergies) Date Reviewed: 04/28/2018 Reviewed by: Cherise Cortez (Diandra) DIANDRA Ch - Fully Assessed Prescriptions as of 07/13/2018 Sig: ALBUTEROL SULFATE HFA 90 MCG/* Inhale 2 Puffs as instructed * Patient not taking: Reported on 07/23/2018 CHOLECALCIFEROL (VITAMIN D3) * Take 1 capsule by mouth once * Patient not taking: Reported on 07/23/2018 OMEPRAZOLE 20 MG CAPSULE,HORTENCIA* Take 1 capsule by mouth daily* Patient not taking: Reported on 07/23/2018 CITALOPRAM 40 MG TABLET 1 tablet once daily. TRIAMCINOLONE ACETONIDE 0.025* Apply 1 application to affect* Patient not taking: Reported on 07/23/2018 ALPRAZOLAM 0.25 MG TABLET Take 1 tablet by mouth three * Problem List As Of Date 07/13/2018 Noted Resolved SKIN DISORDERS NEC [L98.8] INVALID FOR* ADJUSTMENT DISORDER WITH DEPRESSED MOOD [F43.21]INVALID FOR* Panic attack [F41.0] INVALID FOR* Anxiety [F41.9] INVALID FOR* Mammographic microcalcification [R92.0] INVALID FOR* Complete tear of right rotator cuff [M75.121] INVALID FOR* Obesity, Class III, BMI 40-49.9 (morbid obesity*INVALID FOR* Acute pain of right shoulder [M25.511] INVALID FOR* Weakness of shoulder [R29.898] INVALID FOR* Encounter Status:Closed by EPIC, PRODUSER on 09/04/18 CBC Collected: 07/09/2018 Status: F Source: [facility] [place] 6:39 AM [facility] REPOSITORY TYPE CODE TESTS RESULT OUT OF RANGE REFERENCE UNITS LAB CBC(LOINC) CBC Result Comment: CBC-COMPLETE BLOOD COUNT LAB WBC(LOINC) 4.5 - 10.8 x 10EE3/UL WBC 6.1 LAB RBC(LOINC) 4.10 - x 10EE6/UL 5.30 RBC 4.32 LAB HEMOGLOBIN(LOINC) 12.0 - g/dl 16.0 HEMOGLOBIN 12.5 LAB HEMATOCRIT(LOINC) 34.0 - % 46.0 HEMATOCRIT 36.7 LAB MCV(LOINC) 80 - 99 fl MCV 85 LAB MCH(LOINC) 27 - 33 pg MCH 29 LAB MCHC(LOINC) 32 - 36 X10 3 MCHC 34 LAB RDW/CV(LOINC) 12.0 - % 15.6 RDW/CV 14.2 LAB PLATELET(LOINC) 150 - 450 x10EE3/UL PLATELET 199 LAB MPV(LOINC) 6.6 - 10.5 fl MPV 9.9 Result Comment: AUTOMATED DIFFERENTIAL LAB NEUT %(LOINC) 46.0 - 76.0 % NEUT % 53.4 LAB LYMPH %(LOINC) 20.0 - 45.0 % LYMPH % 37.6 LAB MONOS %(LOINC) 0.0 - 10.0 % MONOS % 5.8 LAB EO %(LOINC) 0.0 - 7.0 % EO % 2.1 LAB BASO %(LOINC) 0.0 - 2.0 % BASO % 1.1 LAB Lymph #(LOINC) 0.80 - 2.80 x10EE3/U L Lymph # 2.30 LAB Neut #(LOINC) 1.50 - 7.10 x10EE3/U L Neut # 3.30 LAB [place] #(LOINC) 0.20 - 1.00 x10EE3/U L [place] # 0.40 LAB EO #(LOINC) 0.00 - 0.50 x10EE3/U L EO # 0.10 LAB Baso #(LOINC) 0.00 - 0.10 x10EE3/U L Baso # 0.10 LAB MANUAL DIFF(LOINC) MANUAL DIFF N/A LAB MORPHOLOGY(LOINC ) MORPHOLOGY N/A Result Comment: {CD] Performed By: #### [id number] #### [facility],[address] [place] [address] BMP WITH EGFR Collected: 07/09/2018 Status: F Source: [facility] [place] 6:39 AM [facility] REPOSITORY TYPE CODE TESTS RESULT OUT OF RANGE REFERENCE UNITS LAB BMP with eGFR(LOINC) BMP with eGFR Result Comment: BASIC METABOLIC PANEL LAB SODIUM(LOINC) 136 - 145 mmol/l SODIUM 139 LAB POTASSIUM(LOINC) 3.5 - 5.1 mmol/L POTASSIUM 3.6 LAB CHLORIDE(LOINC) 98 - 107 mmol/L CHLORIDE High 110 LAB CO2(LOINC) 21.0 - mmol/L 31.0 CO2 23.2 LAB GLUCOSE(LOINC) 74 - 106 mg/dl GLUCOSE 92 LAB BUN(LOINC) 6 - 20 mg/dl BUN 8 LAB CREATININE(LOINC) 0.6 - 1.2 mg/dl CREATININE 0.6 LAB CALCIUM(LOINC) 8.6 - mg/dl 10.2 CALCIUM Low 8.1 LAB ANION GAP(LOINC) 10 - 20 mmol/L ANION Low GAP 9 LAB AGE(LOINC) years AGE 47 LAB eGFR(LOINC) 60 - 999 ML/MINUTE eGFR >60 LAB eGFR(AA)(LOINC) 60 - 999 ML/MINUTE eGFR(AA) >60 Result Comment: ACCORDING TO THE NATIONAL KIDNEY DISEASE EDUCATION PROGRAM(NKDE), A NORMAL eGFR IS A VALUE GREATER THAN OR EQUAL TO 60 ML/MIN/1.73 SQ METERS. CHRONIC KIDNEY DISEASE: <60mL/MIN/1.73 SQ METERS KIDNEY FAILURE: <15mL/MIN/1.73 SQ METERS THIS TEST SHOULD ONLY BE USED FOR PATIENTS 18 YEARS OF AGE AND OLDER. Performed By: #### [id number] #### [facility],[address] [place] [address] US KIDNEY / BLADDER Observed: 07/08/2018 Status: F Source: [facility] [place] 3:51 PM [facility] REPOSITORY [place] [id number] Patient: PRICE CARDENAS Phone#: : [phone] Age: 47 Gender: F Pt. Type: Out Account: [id number] Location: [facility] Ordering: AMERICA MARLENE Exam Date: 07/08/2018/15:16 Family Phys: YI BOLTON Charge Code: 657004 Physician: Carolina Order #: [id number] DLP Dose#: PROCEDURE: KIDNEY/BLADDER ULTRASOUND COMPARISON: None. INDICATIONS: Right Flank Pain TECHNIQUE: Ultrasound examination was performed of the kidneys and bladder. FINDINGS: RIGHT KIDNEY: Normal. Age-appropriate size and echotexture. Right kidney size 10.3 x 5.2 x 4.9 cm. No mass or obstruction. LEFT KIDNEY: Normal. Age-appropriate size and echotexture. Left kidney size 11.2 x 5.7 x 4.6 cm. No mass or obstruction. BLADDER: Normal. No visible wall thickening, mass, or calculus. There is no post void residual noted. OTHER: Negative. CONCLUSION: 1. The kidneys are normal bilaterally. 2. The bladder is normal in contour. There is no significant postvoid residual. Dictated by: Marleni Amor MD on 07/08/2018 at 16:01 Approved by: Marleni Amor MD on 07/08/2018 at 16:01 BMP WITH EGFR DAILY Collected: 07/08/2018 Status: F Source: [facility] [place] 7:47 AM [facility] REPOSITORY TYPE CODE TESTS RESULT OUT OF RANGE REFERENCE UNITS LAB BMP with eGFR DAILY(LOINC ) BMP with eGFR DAILY Result Comment: BASIC METABOLIC PANEL LAB SODIUM(LOINC) 136 - 145 mmol/l SODIUM 138 LAB POTASSIUM(LOINC) 3.5 - 5.1 mmol/L Low POTASSIUM 3.3 LAB CHLORIDE(LOINC) 98 - 107 mmol/L CHLORIDE 105 LAB CO2(LOINC) 21.0 - mmol/L 31.0 CO2 27.3 LAB GLUCOSE(LOINC) 74 - 106 mg/dl GLUCOSE 97 LAB BUN(LOINC) 6 - 20 mg/dl BUN 13 LAB CREATININE(LOINC) 0.6 - 1.2 mg/dl CREATININE 0.6 LAB CALCIUM(LOINC) 8.6 - mg/dl 10.2 CALCIUM Low 7.9 LAB ANION GAP(LOINC) 10 - 20 mmol/L ANION Low GAP 9 LAB AGE(LOINC) years AGE 47 LAB eGFR(LOINC) 60 - 999 ML/MINUTE eGFR >60 LAB eGFR(AA)(LOINC) 60 - 999 ML/MINUTE eGFR(AA) >60 Result Comment: {LL] {II] {HH] ACCORDING TO THE NATIONAL KIDNEY DISEASE EDUCATION PROGRAM(NKDE), A NORMAL eGFR IS A VALUE GREATER THAN OR EQUAL TO 60 ML/MIN/1.73 SQ METERS. CHRONIC KIDNEY DISEASE: <60mL/MIN/1.73 SQ METERS KIDNEY FAILURE: <15mL/MIN/1.73 SQ METERS THIS TEST SHOULD ONLY BE USED FOR PATIENTS 18 YEARS OF AGE AND OLDER. Performed By: #### [id number] #### [facility],[address] [place] [address] CBC Collected: 07/08/2018 Status: F Source: [facility] 7:47 AM [facility] REPOSITORY TYPE CODE TESTS RESULT OUT OF RANGE REFERENCE UNITS LAB CBC(LOINC) CBC Result Comment: CBC-COMPLETE BLOOD COUNT LAB WBC(LOINC) 4.5 - 10.8 x 10EE3/UL WBC 6.1 LAB RBC(LOINC) 4.10 - x 10EE6/UL 5.30 RBC 4.32 LAB HEMOGLOBIN(LOINC) 12.0 - g/dl 16.0 HEMOGLOBIN 12.5 LAB HEMATOCRIT(LOINC) 34.0 - % 46.0 HEMATOCRIT 36.8 LAB MCV(LOINC) 80 - 99 fl MCV 85 LAB MCH(LOINC) 27 - 33 pg MCH 29 LAB MCHC(LOINC) 32 - 36 X10 3 MCHC 34 LAB RDW/CV(LOINC) 12.0 - % 15.6 RDW/CV 13.8 LAB PLATELET(LOINC) 150 - 450 x10EE3/UL PLATELET 209 LAB MPV(LOINC) 6.6 - 10.5 fl MPV 9.7 Result Comment: AUTOMATED DIFFERENTIAL LAB NEUT %(LOINC) 46.0 - 76.0 % NEUT % 52.2 LAB LYMPH %(LOINC) 20.0 - 45.0 % LYMPH % 38.1 LAB MONOS %(LOINC) 0.0 - 10.0 % MONOS % 7.0 LAB EO %(LOINC) 0.0 - 7.0 % EO % 2.0 LAB BASO %(LOINC) 0.0 - 2.0 % BASO % 0.7 LAB Lymph #(LOINC) 0.80 - 2.80 x10EE3/U L Lymph # 2.30 LAB Neut #(LOINC) 1.50 - 7.10 x10EE3/U L Neut # 3.20 LAB [place] #(LOINC) 0.20 - 1.00 x10EE3/U L [place] # 0.40 LAB EO #(LOINC) 0.00 - 0.50 x10EE3/U L EO # 0.10 LAB Baso #(LOINC) 0.00 - 0.10 x10EE3/U L Baso # 0.00 LAB MANUAL DIFF(LOINC) MANUAL DIFF N/A LAB MORPHOLOGY(LOINC ) MORPHOLOGY N/A Result Comment: {CD] Performed By: #### [id number] #### [place] [id number] CT KUB (KIDNEY STONE Observed: 07/08/2018 Status: F Source: [facility] PROTOCOL) 12:52 AM [place] [id number] Patient: PRICE CARDENAS Phone#: : 1970 Age: 47 Gender: F Pt. Type: ER Account: [id number] Location: 052 Ordering: DR. MARY FRAGOSO Exam Date: 07/08/2018/0:39 Family Phys: YI BOLTON Charge Code: [id number] Physician: Carolina Order #: [id number] DLP Dose#: [id number] PROCEDURE: CT ABDOMEN AND PELVIS WITHOUT CONTRAST COMPARISON: [facility], CT, KUB W/O CON, 11/22/2016, 0:43. INDICATIONS: Flank Pain TECHNIQUE: After obtaining the patient's consent, CT images of the abdomen and pelvis were created without non-ionic intravenous contrast material. All CT scans at this facility use dose modulation, iterative reconstruction, and/or weight based dosing when appropriate to reduce radiation dose to as low as reasonably achievable. IV CONTRAST: No IV contrast used,0ml TOTAL DOSE: 44.20 CTDIvol(mGy) FINDINGS: Evaluation of the solid organs and soft tissues is limited without intravenous contrast. KIDNEYS: Punctate nonobstructing left-sided nephrolithiasis, the stones measure 0.1 cm. No hydronephrosis. ADRENALS: Normal. No mass or enlargement. URINARY BLADDER: Partially decompressed. LIVER: Unremarkable in contour. BILIARY: The gallbladder is absent. PANCREAS: Unremarkable in contour. SPLEEN: Unremarkable in contour. AORTA/VASCULAR: No aortic aneurysm. RETROPERITONEUM: Evaluation for adenopathy is limited in the absence of intravenous contrast however no adenopathy identified. BOWEL/MESENTERY: No bowel obstruction or dilatation. There is a small hiatal hernia. There is diffuse fatty infiltration of the colonic wall extending from the cecum to the splenic flexure. The appendix is unremarkable containing air. ABDOMINAL WALL: There are small bilateral fat containing inguinal hernias. PELVIC NODES: Normal. No adenopathy. Continued Report - Page 2 of 2 Patient: PRICE CARDENAS Phone#: : 1970 Age: 47 Gender: F Pt. Type: ER Account: [id number] Location: 052 Ordering: DR. MARY FRAGOSO Exam Date: 07/08/2018/0:39 Family Phys: YI BOLTON Charge Code: [id number] Physician: Carolina Order #: [id number] DLP Dose#: [id number] PELVIC ORGANS: The uterus is present. Calcifications are seen in the right ovary. No adnexal masses. BONES: Normal. No bony lesion or fracture. LUNG BASES: Normal. No visible pulmonary or pleural disease. OTHER: Mass in the presacral space adjacent to the rectum, in retrospect this was present on the comparison study and is stable, series 5 image 65. The mass is circumscribed measuring 2.0 x 1.9 x 3.2 cm, previously 1.8 x 2.0 x 3.3 cm. It is approximately 6.9 cm from the anal verge. Indeterminate if this mass arises from the colon or is extrinsic to the colon. CONCLUSION: 1. Nonobstructing nephrolithiasis on the left. No hydronephrosis. 2. Fatty infiltration of the colon, this may be incidental versus sequela of inflammatory bowel disease. Recommend clinical correlation. 3. Stable indeterminate presacral mass. Dictated by: Ariane Flowers MD on 07/08/2018 at 9:25 Approved by: Ariane Flowers MD on 07/08/2018 at 9:50 Observed: 07/08/2018 Status: F Source: [place] [place] CULTURE BLOOD 12:29 AM [facility] REPOSITORY CULTURE BLOOD CULTURE BLOOD SET: 2 of 2 24HOUR REPORT NO GROWTH 48HOUR REPORT NO GROWTH 72HOUR REPORT NO GROWTH M I C R O B I O L O G Y R E P O R T FINAL Antimicrobial Susceptibility and Organism Identification Report Specimen Number : [id number] Requested : 07/08/18 Specimen Source : BLOOD Collected : 07/08/18 00:29 Tim of Isolation : Emergency Room Received : 07/08/18 00:29 Requesting Physician : EH Gutierrez Patient/Specimen Tests and Comments Specimen Comments FINAL REPORT: No Growth at 5 Days Tech : Source : BLOOD ID # : [id number] FINAL Report Date : / / : Collected : 07/08/18 00:29 07/13/18.1135.BKO. 07/13/18.1135.BKO.COMPLETE Performed By: #### [id number] #### [facility],[address] [place] [address] CBC Collected: 07/08/2018 Status: F Source: [facility] 12:24 AM [facility] REPOSITORY TYPE CODE TESTS RESULT OUT OF RANGE REFERENCE UNITS LAB CBC(LOINC) CBC Result Comment: CBC-COMPLETE BLOOD COUNT LAB WBC(LOINC) 4.5 - 10.8 x 10EE3/UL WBC 8.3 LAB RBC(LOINC) 4.10 - x 10EE6/UL 5.30 RBC 4.79 LAB HEMOGLOBIN(LOINC) 12.0 - g/dl 16.0 HEMOGLOBIN 14.1 LAB HEMATOCRIT(LOINC) 34.0 - % 46.0 HEMATOCRIT 40.4 LAB MCV(LOINC) 80 - 99 fl MCV 84 LAB MCH(LOINC) 27 - 33 pg MCH 29 LAB MCHC(LOINC) 32 - 36 X10 3 MCHC 35 LAB RDW/CV(LOINC) 12.0 - % 15.6 RDW/CV 14.2 LAB PLATELET(LOINC) 150 - 450 x10EE3/UL PLATELET 238 LAB MPV(LOINC) 6.6 - 10.5 fl MPV 10.4 Result Comment: AUTOMATED DIFFERENTIAL LAB NEUT %(LOINC) 46.0 - 76.0 % NEUT % 54.5 LAB LYMPH %(LOINC) 20.0 - 45.0 % LYMPH % 36.9 LAB MONOS %(LOINC) 0.0 - 10.0 % MONOS % 5.8 LAB EO %(LOINC) 0.0 - 7.0 % EO % 1.9 LAB BASO %(LOINC) 0.0 - 2.0 % BASO % 0.9 LAB Lymph #(LOINC) 0.80 - 2.80 x10EE3/U L Lymph # High 3.10 LAB Neut #(LOINC) 1.50 - 7.10 x10EE3/U L Neut # 4.50 LAB [place] #(LOINC) 0.20 - 1.00 x10EE3/U L [place] # 0.50 LAB EO #(LOINC) 0.00 - 0.50 x10EE3/U L EO # 0.20 LAB Baso #(LOINC) 0.00 - 0.10 x10EE3/U L Baso # 0.10 LAB MANUAL DIFF(INC) MANUAL DIFF N/A LAB MORPHOLOGY(INC ) MORPHOLOGY N/A Result Comment: {CD] Performed By: #### [id number] #### [facility],[address] [place] [address] CMP WITH EGFR Collected: 07/08/2018 Status: F [facility] [facility] 12:24 AM [facility] REPOSITORY TYPE CODE TESTS RESULT OUT OF RANGE REFERENCE UNITS LAB CMP with eGFR(INC) CMP with eGFR Result Comment: COMPREHENSIVE METABOLIC PANEL LAB SODIUM(LOINC) 136 - 145 mmol/l SODIUM 140 LAB POTASSIUM(INC) 3.5 - 5.1 mmol/L POTASSIUM 3.6 LAB CHLORIDE(LOINC) 98 - 107 mmol/L CHLORIDE 104 LAB CO2(LOINC) 21.0 - mmol/L 31.0 CO2 26.9 LAB GLUCOSE(LOINC) 74 - 106 mg/dl GLUCOSE 82 LAB BUN(INC) 6 - 20 mg/dl BUN 13 LAB CREATININE(INC) 0.6 - 1.2 mg/dl CREATININE 0.7 LAB AST/SGOT(LOINC) 13 - 39 U/L AST/SGOT 14 LAB ALK PHOS(LOINC) 38 - 126 U/L ALK PHOS 69 LAB CALCIUM(LOINC) 8.6 - mg/dl 10.2 CALCIUM 8.8 LAB TOTAL 6.4 - 8.3 g/dl PROTEIN(LOINC) TOTAL PROTEIN 6.5 LAB ALBUMIN(LOINC) 3.4 - 4.8 g/dL ALBUMIN 4.1 LAB GLOBULIN(LOINC) 1.5 - 3.8 G/DL GLOBULIN 2.4 LAB A/G RATIO(LOINC) 0.9 - 1.6 A/G High RATIO 1.7 LAB TOTAL BILI(LOINC) 0.0 - 1.5 mg/dl TOTAL BILI 0.5 LAB B/C RATIO(LOINC) 0 - 30 ratio B/C RATIO 19 LAB ALT/SGPT(LOINC) 8 - 35 U/L ALT/SGPT 10 LAB ANION GAP(LOINC) 10 - 20 mmol/L ANION GAP 13 LAB AGE(LOINC) years AGE 47 LAB eGFR(LOINC) 60 - 999 ML/MINUTE eGFR >60 LAB eGFR(AA)(LOINC) 60 - 999 ML/MINUTE eGFR(AA) >60 Result Comment: ACCORDING TO THE NATIONAL KIDNEY DISEASE EDUCATION PROGRAM(NKDE), A NORMAL eGFR IS A VALUE GREATER THAN OR EQUAL TO 60 ML/MIN/1.73 SQ METERS. CHRONIC KIDNEY DISEASE: <60mL/MIN/1.73 SQ METERS KIDNEY FAILURE: <15mL/MIN/1.73 SQ METERS THIS TEST SHOULD ONLY BE USED FOR PATIENTS 18 YEARS OF AGE AND OLDER. Performed By: #### [id number] #### [place] [address] LIPASE Collected: 07/08/2018 Status: F Source: [facility] 12:24 AM [facility] REPOSITORY TYPE CODE TESTS RESULT OUT OF REFERENCE UNITS RANGE LAB LIPASE(LOIN 18.0 - 51.0 U/L C) Low LIPASE 13.0 Performed By: #### [id number] #### [place] [address] Observed: 07/08/2018 Status: F Source: [facility] CULTURE BLOOD 12:24 AM [facility] REPOSITORY CULTURE BLOOD CULTURE BLOOD ORDER # 0 SET: 1 of 2 24HOUR REPORT NO GROWTH 48HOUR REPORT NO GROWTH 72HOUR REPORT NO GROWTH M I C R O B I O L O G Y R E P O R T FINAL Antimicrobial Susceptibility and Organism Identification Report Specimen Number : [id number] Requested : 07/08/18 Specimen Source : BLOOD Collected : 07/08/18 00:24 Tim of Isolation : Emergency Room Received : 07/08/18 00:24 Requesting Physician : EH Gutierrez Patient/Specimen Tests and Comments Specimen Comments FINAL REPORT: No Growth at 5 Days Tech : Source : BLOOD ID # : [id number] FINAL Report Date : / / : Collected : 07/08/18 00:24 07/13/[id number]. 07/13/[id number].COMPLETE Performed By: #### [id number] #### [place] [address] URINALYSIS Collected: 07/08/2018 Status: F Source: [facility] 12:01 [facility] REPOSITORY TYPE CODE TESTS RESULT OUT OF REFERENCE UNITS RANGE LAB URINALYSIS (LOINC) URINALYSIS Result Comment: URINALYSIS LAB Specimen Type(LOINC) Specimen Type Clean catch LAB Color(LOINC) NORMAL: YELLOW Color shabbir LAB Clarity(LOINC) NORMAL: CLEAR Clarity sl.cloudy LAB ph(LOINC) NORMAL: 5.0-8.0 ph 5 LAB Protein(LOINC) NORMAL: NEGATIVE Protein Abnormal 15 LAB Glucose(LOINC) NORMAL: NORMAL Glucose NORM LAB Ketone(LOINC) NORMAL: NEGATIVE Ketone Abnormal 5 LAB Bilirubin(LOINC) NORMAL: NEGATIVE Bilirubin NEG LAB Blood(LOINC) NORMAL: NEGATIVE Blood NEG LAB Urobilinog(LOINC) NORMAL: NORMAL Urobilinog Abnormal 1 LAB Sp [place](LOINC) NORMAL: 1.010-1.030 Sp [place] 1.025 LAB Nitrite(LOINC) NORMAL: NEGATIVE Nitrite NEG LAB Leukocytes(LOINC) NORMAL: NEGATIVE Leukocytes Abnormal 100 LAB Microscopic(LOINC ) Microscopic SEE BELOW Result Comment: MICROSCOPIC LAB Wbc(LOINC) 0-5/hpf Wbc 6-10 LAB Rbc(LOINC) 0-3/hpf Rbc NONE LAB Casts(LOINC) Casts NONE LAB Crystals(LOINC) Crystals NONE LAB Amorphous(LOINC) Amorphous NONE LAB Bacteria(LOINC) Bacteria 4+ LAB Epi Cells(LOINC) Epi Cells MANY LAB Mucous(LOINC) Mucous 4+ LAB Yeast(LOINC) Yeast NONE Performed By: #### [id number] #### [place] [id number] URINE Collected: 07/08/2018 Status: F Source: [facility] 12:01 [facility] REPOSITORY TYPE CODE TESTS RESULT OUT OF REFERENCE UNITS RANGE LAB NEGATIVE UR(LOINC) UR NEGATIVE LAB INTERNAL QC(LOINC) INTERNAL QC PASS LAB EXTERNAL QC DONE?(LOINC) EXTERNAL QC YES DONE? Performed By: #### [id number] #### [facility],[address] [place] [id number] Observed: 07/08/2018 Status: F Source: [facility] CULTURE URINE 12:01 AM [facility] REPOSITORY CULTURE URINE _URINE CULTURE_ M I C R O B I O L O G Y R E P O R T FINAL Antimicrobial Susceptibility and Organism Identification Report Specimen Number : [id number] Requested : 07/08/18 Specimen Source : URINE Collected : 07/08/18 00:01 Tim of Isolation : Emergency Room Received : 07/08/18 00:01 Requesting Physician : EH Gutierrez Patient/Specimen Tests and Comments Specimen Comments FINAL REPORT: URINE COLONY COUNT: [id number] CFU/CC >OR=TO 3 COLONY TYPES PROBABLE CONTAMINATION Tech : Source : URINE ID # : [id number] FINAL Report Date : / / : Collected : 07/08/18 00:01 07/10/18.0929.JLN. 07/09/18.1041.JLN. 07/10/18.928.JLN.COMPLETE Performed By: #### [id number] #### [facility],[address] [place] [address] PROGRESS Observed: 04/28/2018 Status: COMPLETED Source: [place] 3:[address] [facility] REPOSITORY HNO ID: [id number] Author: Martha (Chepe) Tushar Service: (none) Author Type: Nurse Practitioner Type: Progress Notes Filed: 04/28/2018 3:42 PM Note Text: 04/28/2018 Patient presents with: Recheck: urgent care seen no better SUBJECTIVE: This is a 47 year old that is here today for follow up sinobronchitis. She states that the sinus symptoms and cough have improved- nearly resolved, but she continues to have a chest tightness when taking deep breaths. She has been using her inhaler 4x/day with relief, but does not last until the next use. She is able to participate in da to day functions and work. Denies fever or chills. Mild cough is dry and raspy. Decreased appetite, but drinking a lot of water and Gatorade. She is on day 5 of the doxy and is tolerating it well. Denies sore throat, nasal congestion, rhinorrhea, ear concerns, facial tenderness. PAST MEDICAL HISTORY Diagnosis Date - Adjustment disorder with depressed mood 10/08/2007 - Anxiety - Complete tear of right rotator cuff 04/03/2016 - Non morbid obesity 04/18/2016 ALLERGIES Patient has no known allergies. MEDICATIONS Current Outpatient Prescriptions: albuterol HFA (PROAIR HFA) 90 mcg/actuation inhaler Inhale 2 Puffs as instructed every 4 hours as needed. doxycycline monohydrate 100 mg tablet Take 1 tablet by mouth twice daily for 10 days. cholecalciferol, Vitamin D3, (VITAMIN D3) 50,000 unit cap capsule Take 1 capsule by mouth once each week. omeprazole (PRILOSEC) 20 mg capsule Take 1 capsule by mouth daily before breakfast. 1/2 hr before meal. citalopram (CELEXA) 40 mg tablet 1 tablet once daily. triamcinolone (KENALOG) 0.025 % cream Apply 1 application to affected area twice daily. Until gone ALPRAZolam (XANAX) 0.25 mg tablet Take 1 tablet by mouth three times daily as needed for Anxiety. No current facility-administered medications for this visit. Medications and allergies reviewed by this provider. SOCIAL HISTORY Social History Marital status: Spouse name: Yi Years of education: 12 Number of children: 3 Occupational History Occupation Employer Comment [employer] Social History Main Topics Smoking status: Never Smoker Smokeless tobacco: Never Used Alcohol use: Yes Comment: rarely Drug use: No Sexual activity: Yes Partners with: Male control/protection: Surgical Comment: bps REVIEW OF SYSTEMS see HPI OBJECTIVE: BP 100/60 (BP Site: Left Arm, BP Position: Sitting, BP Cuff Size: Regular Adult) Pulse (!) 56 Temp 36.2 ?C (97.1 ?F) Resp 18 Wt 113 kg (249 lb 1.9 oz) SpO2 98% BMI 41.46 kg/m? . Vital signs reviewed by this provider. PHYSICAL EXAMINATION: General appearance: Well appearing, alert, in no acute distress, well-hydrated, well nourished. Skin: Skin color, texture, turgor normal, no suspicious rashes or lesions Head: Normocephalic, no masses, lesions, tenderness or abnormalities Neck: Supple, no adenopathy Lungs: Positive findings: wheezing Heart: RRR without murmur, gallop, or rubs. No ectopy Extremities: No deformities, edema, skin discoloration, clubbing or cyanosis. Good capillary refill. , Pulses: 2+ ASSESSMENT/PLAN: 1. Sinobronchitis - ICD9: 473.9, 490, ICD10: J32.9, J40 (primary diagnosis) - improving - continue course of doxycycline - spacer given for inhaler- continue to use as needed - The patient should also be given mucinex - Supportive care with plenty of fluids, rest, and analgesia prn. - Follow up in 3-5 days if symptoms persist or worsen. Will order CXR if persists or worsens. 2. Wheezing - ICD9: 786.07, ICD10: R06.2 - see above Martha Pastor APRN.CNP CNOV Observed: 04/28/2018 Status: COMPLETED Source: [place] 3:00 PM [facility] REPOSITORY [facility] PRICE CARDENAS ([id number]) 1970 F Date Time Provider Department 04/28/18 3:00 PM MARTHA PASTOR (CHEPE) [facility] During your visit today, we recorded the following information about you: Temperature Pulse Respiration Blood pressure 97.1 degrees 56/minute 18/minute 100/60 Weight 113 kg Martha Pastor APRN.CNP 04/28/2018 3:42 PM Signed 04/28/2018 Patient presents with: Recheck: urgent care seen no better SUBJECTIVE: This is a 47 year old that is here today for follow up sinobronchitis. She states that the sinus symptoms and cough have improved- nearly resolved, but she continues to have a chest tightness when taking deep breaths. She has been using her inhaler 4x/day with relief, but does not last until the next use. She is able to participate in da to day functions and work. Denies fever or chills. Mild cough is dry and raspy. Decreased appetite, but drinking a lot of water and Gatorade. She is on day 5 of the doxy and is tolerating it well. Denies sore throat, nasal congestion, rhinorrhea, ear concerns, facial tenderness. PAST MEDICAL HISTORY Diagnosis Date - Adjustment disorder with depressed mood 10/08/2007 - Anxiety - Complete tear of right rotator cuff 04/03/2016 - Non morbid obesity 04/18/2016 ALLERGIES Patient has no known allergies. MEDICATIONS Current Outpatient Prescriptions: albuterol HFA (PROAIR HFA) 90 mcg/actuation inhaler Inhale 2 Puffs as instructed every 4 hours as needed. doxycycline monohydrate 100 mg tablet Take 1 tablet by mouth twice daily for 10 days. cholecalciferol, Vitamin D3, (VITAMIN D3) 50,000 unit cap capsule Take 1 capsule by mouth once each week. omeprazole (PRILOSEC) 20 mg capsule Take 1 capsule by mouth daily before breakfast. 1/2 hr before meal. citalopram (CELEXA) 40 mg tablet 1 tablet once daily. triamcinolone (KENALOG) 0.025 % cream Apply 1 application to affected area twice daily. Until gone ALPRAZolam (XANAX) 0.25 mg tablet Take 1 tablet by mouth three times daily as needed for Anxiety. No current facility-administered medications for this visit. Medications and allergies reviewed by this provider. SOCIAL HISTORY Social History Marital status: Spouse name: Yi Years of education: 12 Number of children: 3 Occupational History Occupation Employer Comment [employer] Social History Main Topics Smoking status: Never Smoker Smokeless tobacco: Never Used Alcohol use: Yes Comment: rarely Drug use: No Sexual activity: Yes Partners with: Male control/protection: Surgical Comment: bps REVIEW OF SYSTEMS see HPI OBJECTIVE: BP 100/60 (BP Site: Left Arm, BP Position: Sitting, BP Cuff Size: Regular Adult) Pulse (!) 56 Temp 36.2 ?C (97.1 ?F) Resp 18 Wt 113 kg (249 lb 1.9 oz) SpO2 98% BMI 41.46 kg/m? . Vital signs reviewed by this provider. PHYSICAL EXAMINATION: General appearance: Well appearing, alert, in no acute distress, well-hydrated, well nourished. Skin: Skin color, texture, turgor normal, no suspicious rashes or lesions Head: Normocephalic, no masses, lesions, tenderness or abnormalities Neck: Supple, no adenopathy Lungs: Positive findings: wheezing Heart: RRR without murmur, gallop, or rubs. No ectopy Extremities: No deformities, edema, skin discoloration, clubbing or cyanosis. Good capillary refill. , Pulses: 2+ ASSESSMENT/PLAN: 1. Sinobronchitis - ICD9: 473.9, 490, ICD10: J32.9, J40 (primary diagnosis) - improving - continue course of doxycycline - spacer given for inhaler- continue to use as needed - The patient should also be given mucinex - Supportive care with plenty of fluids, rest, and analgesia prn. - Follow up in 3-5 days if symptoms persist or worsen. Will order CXR if persists or worsens. 2. Wheezing - ICD9: 786.07, ICD10: R06.2 - see above Martha Pastor APRN.RADIOPHARMACIST Referring Provider: SELF [[id number]] Allergies As of Date: 04/28/2018 (No Known Allergies) Date Reviewed: 04/28/2018 Reviewed by: Cherise Tinsley LPN - Fully Assessed Reason for Visit: Recheck [92] Cmt: urgent care seen no better Primary Visit Diagnosis:Sinobronchitis [J32.9, J40] Other Visit Diagnosis:Wheezing [R06.2] Prescriptions as of 04/28/2018 Sig: ALBUTEROL SULFATE HFA 90 MCG/* Inhale 2 Puffs as instructed * DOXYCYCLINE MONOHYDRATE 100 M* Take 1 tablet by mouth twice * CHOLECALCIFEROL (VITAMIN D3) * Take 1 capsule by mouth once * OMEPRAZOLE 20 MG CAPSULE,HORTENCIA* Take 1 capsule by mouth daily* CITALOPRAM 40 MG TABLET 1 tablet once daily. TRIAMCINOLONE ACETONIDE 0.025* Apply 1 application to affect* ALPRAZOLAM 0.25 MG TABLET Take 1 tablet by mouth three * Problem List As Of Date 04/28/2018 Noted Resolved SKIN DISORDERS NEC [L98.8] INVALID FOR* ADJUSTMENT DISORDER WITH DEPRESSED MOOD [F43.21]INVALID FOR* Panic attack [F41.0] INVALID FOR* Anxiety [F41.9] INVALID FOR* Mammographic microcalcification [R92.0] INVALID FOR* Complete tear of right rotator cuff [M75.121] INVALID FOR* Obesity, Class III, BMI 40-49.9 (morbid obesity*INVALID FOR* Acute pain of right shoulder [M25.511] INVALID FOR* Weakness of shoulder [R29.898] INVALID FOR* Letter Text [facility] Department of Family Medicine [address] [address] TO WHOM IT MAY CONCERN: This is to confirm that Price Cardenas had an appointment and was seen at the [facility] in the Department of Family Medicine Martha Pastor CNP on 04/28/2018. Please excuse her from work. Sincerely yours, Martha Pastor CNP Encounter Status:Closed by MARTHA PASTOR on 04/28/18 PROGRESS Observed: 04/23/2018 Status: COMPLETED Source: [place] 1:[address] [facility] REPOSITORY HNO ID: [id number] Author: Kendrick Awad) Service: (none) Author Type: Nurse Practitioner Type: Progress Notes Filed: 04/23/2018 2:20 PM Note Text: Subjective HPI HPI Price Cardenas is a 47 year old female who presents today for CC of cough, sinus congestion over 1 week. Has tried nothing. Symptoms are worsened by nothing. Risk factors - Multiple sick exposures at work. Diarrhea, vomiting last Friday. Denies possibility of being . .Patient presents with: cough and congestion: x 1 week-hurts to breath the last 4 days PAST MEDICAL HISTORY Diagnosis Date - Adjustment disorder with depressed mood 10/08/2007 - Anxiety - Complete tear of right rotator cuff 04/03/2016 - Non morbid obesity 04/18/2016 PAST SURGICAL HISTORY Procedure Laterality Date - ARTHROS SHLDR DX W/WO SYNV BX Right 04/19/2016 Right shoulder arthroscopy - LAP CHOLECYSTECT/CHOLANGIOGRAPHY 03-12-07 - LIGATE FALLOPIAN TUBE Tubal ligation - NOVASURE ABLATION WO HYSTREOSCOPY 2010 - REMOVE TONSILS/ADENOIDS,<12 Y/O T/A (under age 12 years) - REPAIR COMPL ROTATOR CUFF AVULSN,CHR Right 04/19/2016 Open SAD and RCR ALLERGIES Patient has no known allergies. MEDICATIONS cholecalciferol, Vitamin D3, (VITAMIN D3) 50,000 unit cap capsule Take 1 capsule by mouth once each week. omeprazole (PRILOSEC) 20 mg capsule Take 1 capsule by mouth daily before breakfast. 1/2 hr before meal. citalopram (CELEXA) 40 mg tablet 1 tablet once daily. ALPRAZolam (XANAX) 0.25 mg tablet Take 1 tablet by mouth three times daily as needed for Anxiety. triamcinolone (KENALOG) 0.025 % cream Apply 1 application to affected area twice daily. Until gone FAMILY HISTORY Problem Relation Age of Onset - Allergies Mother - None Father unknown to pt - Hypertension Maternal Grandmother - Coronary Artery Disease Maternal Grandmother Social History Substance Use Topics - Smoking status: Never Smoker - Smokeless tobacco: Never Used - Alcohol use Yes Comment: rarely Review of Systems Constitutional: Negative for chills, fever and weight loss. HENT: Positive for congestion, sinus pain and sore throat. Negative for ear pain and nosebleeds. Respiratory: Positive for cough and shortness of breath. Negative for wheezing. Cardiovascular: Negative for chest pain. Musculoskeletal: Negative for neck pain. Objective Blood pressure 102/64, pulse 78, temperature 36.3 ?C (97.4 ?F), temperature source Tympanic, resp. rate 18, weight 112 kg (247 lb), SpO2 95 %. Physical Exam Constitutional: She is oriented to person, place, and time and well-developed, well-nourished, and in no distress. Non-toxic appearance. She has a sickly appearance (mild). No distress. HENT: Head: Normocephalic and atraumatic. Right Ear: Hearing, tympanic membrane, external ear and ear canal normal. Left Ear: Hearing, tympanic membrane, external ear and ear canal normal. Nose: Nose normal. Mouth/Throat: Uvula is midline, oropharynx is clear and moist and mucous membranes are normal. Eyes: Conjunctivae and lids are normal. Pupils are equal, round, and reactive to light. Right eye exhibits no discharge. Left eye exhibits no discharge. No scleral icterus. Neck: Trachea normal and normal range of motion. Neck supple. Cardiovascular: Normal rate, regular rhythm and normal heart sounds. Pulmonary/Chest: Effort normal. She has rhonchi (scattered). Loose cough during exam Lungs clear after nebulizer treatment. Lymphadenopathy: She has no cervical adenopathy. Neurological: She is alert and oriented to person, place, and time. Skin: No rash noted. She is not diaphoretic. ASSESSMENT/PLAN: 1. Sinobronchitis - ICD9: 473.9, 490, ICD10: J32.9, J40 (primary diagnosis) - Will begin treatment with Doxycline - Supportive care with plenty of fluids, rest, and analgesia prn. - Follow up in 3-5 days if symptoms persist or worsen. -If you experience chest pain/shortness of breath go to ER 2. Rhonchi - ICD9: 786.7, ICD10: R09.89 Improvement noted after nebulizer treatment - ALBUTEROL SULFATE 2.5 MG/3 ML (0.083 %) SOLUTION FOR NEBULIZATION Prescription instructions reviewed with patient as applicable. Patient advised if symptoms do not improve or if symptoms worsen sooner, to contact the office for further evaluation by their primary care physician. Potential red flag symptoms discussed with the patient. Reviewed appropriate action plan to take if red flag symptoms occur. Patient agreeable to treatment plan. Kendrick Alvarez APRN.CNP CNOV Observed: 04/23/2018 Status: COMPLETED Source: [place] 1:30 PM [facility] REPOSITORY Office Visit ([facility]) PRICE CARDENAS ([id number]) 1970 F Date Time Provider Department 04/23/18 1:30 PM KENDRICK ALVAREZ (CHEPE) [facility] During your visit today, we recorded the following information about you: Temperature Pulse Respiration Blood pressure 97.4 degrees 78/minute 18/minute 102/64 Weight 112 kg Kendrick Alvarez APRN.CNP 04/23/2018 2:20 PM Signed Subjective HPI HPI Rianelson Cardenas is a 47 year old female who presents today for CC of cough, sinus congestion over 1 week. Has tried nothing. Symptoms are worsened by nothing. Risk factors - Multiple sick exposures at work. Diarrhea, vomiting last Friday. Denies possibility of being . .Patient presents with: cough and congestion: x 1 week-hurts to breath the last 4 days PAST MEDICAL HISTORY Diagnosis Date - Adjustment disorder with depressed mood 10/08/2007 - Anxiety - Complete tear of right rotator cuff 04/03/2016 - Non morbid obesity 04/18/2016 PAST SURGICAL HISTORY Procedure Laterality Date - ARTHROS SHLDR DX W/WO SYNV BX Right 04/19/2016 Right shoulder arthroscopy - LAP CHOLECYSTECT/CHOLANGIOGRAPHY 03-12-07 - LIGATE FALLOPIAN TUBE Tubal ligation - NOVASURE ABLATION WO HYSTREOSCOPY 2010 - REMOVE TONSILS/ADENOIDS,<12 Y/O T/A (under age 12 years) - REPAIR COMPL ROTATOR CUFF AVULSN,CHR Right 04/19/2016 Open SAD and RCR ALLERGIES Patient has no known allergies. MEDICATIONS cholecalciferol, Vitamin D3, (VITAMIN D3) 50,000 unit cap capsule Take 1 capsule by mouth once each week. omeprazole (PRILOSEC) 20 mg capsule Take 1 capsule by mouth daily before breakfast. 1/2 hr before meal. citalopram (CELEXA) 40 mg tablet 1 tablet once daily. ALPRAZolam (XANAX) 0.25 mg tablet Take 1 tablet by mouth three times daily as needed for Anxiety. triamcinolone (KENALOG) 0.025 % cream Apply 1 application to affected area twice daily. Until gone FAMILY HISTORY Problem Relation Age of Onset - Allergies Mother - None Father unknown to pt - Hypertension Maternal Grandmother - Coronary Artery Disease Maternal Grandmother Social History Substance Use Topics - Smoking status: Never Smoker - Smokeless tobacco: Never Used - Alcohol use Yes Comment: rarely Review of Systems Constitutional: Negative for chills, fever and weight loss. HENT: Positive for congestion, sinus pain and sore throat. Negative for ear pain and nosebleeds. Respiratory: Positive for cough and shortness of breath. Negative for wheezing. Cardiovascular: Negative for chest pain. Musculoskeletal: Negative for neck pain. Objective Blood pressure 102/64, pulse 78, temperature 36.3 ?C (97.4 ?F), temperature source Tympanic, resp. rate 18, weight 112 kg (247 lb), SpO2 95 %. Physical Exam Constitutional: She is oriented to person, place, and time and well-developed, well-nourished, and in no distress. Non-toxic appearance. She has a sickly appearance (mild). No distress. HENT: Head: Normocephalic and atraumatic. Right Ear: Hearing, tympanic membrane, external ear and ear canal normal. Left Ear: Hearing, tympanic membrane, external ear and ear canal normal. Nose: Nose normal. Mouth/Throat: Uvula is midline, oropharynx is clear and moist and mucous membranes are normal. Eyes: Conjunctivae and lids are normal. Pupils are equal, round, and reactive to light. Right eye exhibits no discharge. Left eye exhibits no discharge. No scleral icterus. Neck: Trachea normal and normal range of motion. Neck supple. Cardiovascular: Normal rate, regular rhythm and normal heart sounds. Pulmonary/Chest: Effort normal. She has rhonchi (scattered). Loose cough during exam Lungs clear after nebulizer treatment. Lymphadenopathy: She has no cervical adenopathy. Neurological: She is alert and oriented to person, place, and time. Skin: No rash noted. She is not diaphoretic. ASSESSMENT/PLAN: 1. Sinobronchitis - ICD9: 473.9, 490, ICD10: J32.9, J40 (primary diagnosis) - Will begin treatment with Doxycline - Supportive care with plenty of fluids, rest, and analgesia prn. - Follow up in 3-5 days if symptoms persist or worsen. -If you experience chest pain/shortness of breath go to ER 2. Rhonchi - ICD9: 786.7, ICD10: R09.89 Improvement noted after nebulizer treatment - ALBUTEROL SULFATE 2.5 MG/3 ML (0.083 %) SOLUTION FOR NEBULIZATION Prescription instructions reviewed with patient as applicable. Patient advised if symptoms do not improve or if symptoms worsen sooner, to contact the office for further evaluation by their primary care physician. Potential red flag symptoms discussed with the patient. Reviewed appropriate action plan to take if red flag symptoms occur. Patient agreeable to treatment plan. Kendrick Alvarez APRN.CHEPE [place] 04/23/2018 2:08 PM Signed 2.5 solution aerosol treatment given per doctor's orders. Prior to treatment O2 Sat is 95%. Treatment completed. O2 sat is 99%. Tolerated well. Kendrick Alvarez APRN.CHEPE 04/23/2018 2:13 PM Signed ASSESSMENT/PLAN: 1. Sinobronchitis - ICD9: 473.9, 490, ICD10: J32.9, J40 (primary diagnosis) - Will begin treatment with Doxycline - Supportive care with plenty of fluids, rest, and analgesia prn. - Follow up in 3-5 days if symptoms persist or worsen. -If you experience chest pain/shortness of breath go to ER Referring Provider: SELF [[id number]] Allergies As of Date: 04/23/2018 (No Known Allergies) Date Reviewed: 04/23/2018 Reviewed by: Ro Britton LPN - Fully Assessed Reason for Visit: cough and congestion [Other] Cmt: x 1 week-hurts to breath the last 4 days Primary Visit Diagnosis:Sinobronchitis [J32.9, J40] Other Visit Diagnosis:Rhonchi [R09.89] Order(s):[] albuterol 2.5 mg /3 mL (0.083 %) 2.5 mg (PROVENTIL)Disp: Rfl: albuterol HFA (PROAIR HFA) 90 mcg/actuation inhalerInhale 2 Puffs as instructed every 4 hours as needed.Disp: 1 InhalerRfl: 0 doxycycline monohydrate 100 mg tabletTake 1 tablet by mouth twice daily for 10 days.Disp: 20 tabletRfl: 0 Prescriptions as of 04/23/2018 Sig: CHOLECALCIFEROL (VITAMIN D3) * Take 1 capsule by mouth once * OMEPRAZOLE 20 MG CAPSULE,HORTENCIA* Take 1 capsule by mouth daily* CITALOPRAM 40 MG TABLET 1 tablet once daily. ALPRAZOLAM 0.25 MG TABLET Take 1 tablet by mouth three * ALBUTEROL SULFATE HFA 90 MCG/* Inhale 2 Puffs as instructed * DOXYCYCLINE MONOHYDRATE 100 M* Take 1 tablet by mouth twice * TRIAMCINOLONE ACETONIDE 0.025* Apply 1 application to affect* Patient not taking: Reported on 04/23/2018 Problem List As Of Date 04/23/2018 Noted Resolved SKIN DISORDERS NEC [L98.8] INVALID FOR* ADJUSTMENT DISORDER WITH DEPRESSED MOOD [F43.21]INVALID FOR* Panic attack [F41.0] INVALID FOR* Anxiety [F41.9] INVALID FOR* Mammographic microcalcification [R92.0] INVALID FOR* Complete tear of right rotator cuff [M75.121] INVALID FOR* Obesity, Class III, BMI 40-49.9 (morbid obesity*INVALID FOR* Acute pain of right shoulder [M25.511] INVALID FOR* Weakness of shoulder [R29.898] INVALID FOR* Other instructions from your clinician: ASSESSMENT/PLAN: 1. Sinobronchitis - ICD9: 473.9, 490, ICD10: J32.9, J40 (primary diagnosis) - Will begin treatment with Doxycline - Supportive care with plenty of fluids, rest, and analgesia prn. - Follow up in 3-5 days if symptoms persist or worsen. -If you experience chest pain/shortness of breath go to ER Visit Notes: >> Martha Warner Ma Rubia April 23, 2018 2:07 PM Status: Signed 2.5 solution aerosol treatment given per doctor's orders. Prior to treatment O2 Sat is 95%. Treatment completed. O2 sat is 99%. Tolerated well. Prescriptions ordered this encounter Disp Refills Start End ALBUTEROL SULFATE 2.5 MG/3 ML (0.083* 04/23/2018 04/23/2018 Route: INHALATION ALBUTEROL SULFATE HFA 90 MCG/ACTUATI* 1 In* 0 04/23/2018 Route: INHALATION Sig: Inhale 2 Puffs as instructed every 4 hours as needed. DOXYCYCLINE MONOHYDRATE 100 MG TABLET 20 t* 0 04/23/2018 05/03/2018 Cmt: May transfer to [facility] if less expensive. Route: ORAL Sig: Take 1 tablet by mouth twice daily for 10 days. Letter Text [place] [facility] Kendrick Alvarez CNP [address], [place] [address] 04/23/2018 Price Cardenas [facility]# [id number] [address] [place] [address] TO WHOM IT MAY CONCERN: This is to confirm that Price Cardenas had an appointment and was seen at the [facility] in the Department of Urgent Care by Kendrick Alvarez CNP on 04/23/2018. Sincerely yours, Kendrick Alvarez CNP Encounter Status:Closed by KENDRICK ALVAREZ CNP on 04/23/18 CBC AND DIFFERENTIAL Collected: 03/11/2018 Status: F Source: [place] 8:[address] [facility] REPOSITORY TYPE CODE TESTS RESULT OUT OF REFERENCE UNITS RANGE LAB WBC 3.70-11.00 k/uL WBC 8.49 LAB RBC 3.90-5.20 m/uL RBC 4.97 LAB HGB 11.5-15.5 g/dL Hemoglobin 14.3 LAB HCT 36.0-46.0 % Hematocrit 43.0 LAB MCV 80.0-100.0 fL MCV 86.5 LAB MCH 26.0-34.0 pG MCH 28.8 LAB MCHC 30.5-36.0 g/dL MCHC 33.3 LAB RDWCV 11.5-15.0 % RDW-CV 13.5 LAB PLTCT 150-400 k/uL Platelet Count 298 LAB MPV 9.0-12.7 fL MPV 11.1 LAB ANEUT % Neut% 61.4 LAB AANEUT 1.45-7.50 k/uL Abs Neut 5.22 LAB ALYMP % Lymph% 29.0 LAB AALYMP 1.00-4.00 k/uL Abs Lymph 2.46 LAB AMONO % [place]% 6.6 LAB AAMONO <0.87 k/uL Abs [place] 0.56 LAB AEOS % Eosin% 2.5 LAB AAEOS <0.46 k/uL Abs Eosin 0.21 LAB ABASO % Baso% 0.5 LAB AABASO <0.11 k/uL Abs Baso 0.04 LAB AUNRBC 0 /100 WBC NRBCs 0.0 LAB ABNRBC <0.01 k/uL Absolute nRBC <0.01 LAB DTYP DTYPE Auto Diff Performed By: #### CBCDIF, CMP, LIPB, TSH, VITD #### [facility] [address] [place], [place] [address] COMP METABOLIC PANEL Collected: 03/11/2018 Status: F Source: [place] 8:[address] [facility] REPOSITORY TYPE CODE TESTS RESULT OUT OF REFERENCE UNITS RANGE LAB TP 6.3-8.0 g/dL Protein, Total 6.9 LAB ALB 3.9-4.9 g/dL Albumin 3.9 LAB CA 8.5-10.2 mg/dL Calcium, Total 8.6 LAB TBIL 0.2-1.3 mg/dL Bilirubin, Total 0.4 LAB ALKP 32-117 U/L Alkaline Phosphatase 81 LAB AST 13-35 U/L AST 23 LAB GLU 74-99 mg/dL Glucose 95 Result Comment: The [place] Diabetes Association (ADA) provides guidance for cutoff values for fasting glucose and random glucose. The ADA defines fasting as no caloric intake for at least 8 hours. Fas ting plasma glucose results between 100 to 125 mg/dL indicate increased risk for diabetes (prediabetes). Fasting plasma glucose results greater than or equal to 126 mg/dL meet the criteria for diagnosis of diabetes. In the absence of unequivocal hyperglycemia, results should be confirmed by repeat testing. In a patient with classic symptoms of hyperglycemia or hyperglycemic crisis, random plasma glucose results greater than or equal to 200 mg/dL meet the criteria for diagnosis of diabetes. Reference: Standards of Medical Care in Diabetes 2016, [place] Diabetes Association. Diabetes Care. 2016.39(Suppl 1). LAB BUN 7-21 mg/dL BUN 14 LAB CRET 0.58-0.96 mg/dL Creatinine 0.66 LAB NA 136-144 mmol/L Sodium 137 LAB K 3.7-5.1 mmol/L Potassium 4.0 LAB CL 97-105 mmol/L Chloride 100 LAB CO2 22-30 mmol/L CO2 24 LAB AGAP 9-18 mmol/L Anion Gap 13 LAB ALT 7-38 U/L ALT 21 LAB GFRAA eGFR- Amer. >60 LAB GFRNAA . eGFR-All Other Races >60 Result Comment: eGFR (Estimated GFR) Units of measure: mL/min/1.73 meters squared eGFR is derived from the reexpressed MDRD Study equation using the following parameters: serum creatinine, age, gender and race. The creatinine assay has been calibrated to be traceable to IDMS. An eGFR <60 mL/min/1.73m2 for >3 months is consistent with chronic kidney disease. Refer to KDOQI guidelines for clinical interpretation. In patients with unstable renal function, e.g. those with acute kidney injury, the eGFR may not accurately reflect actual GFR. Performed By: #### CBCDIF, CMP, LIPB, TSH, VITD #### [facility] [address] [place], [place] [address] LIPID PANEL, BASIC Collected: 03/11/2018 Status: F Source: [place] 8:[address] [facility] REPOSITORY TYPE CODE TESTS RESULT OUT OF REFERENCE UNITS RANGE LAB CHOL <200 mg/dL Cholesterol 167 Result Comment: <200 mg/dL, Desirable 200-239 mg/dL, Borderline high >239 mg/dL, High LAB TRIGLY <150 mg/dL Triglyceride 115 Result Comment: <150 mg/dL, Normal 150-199 mg/dL, Borderline high 200-499 mg/dL, High >499 mg/dL, Very high LAB HDL >39 mg/dL HDL-Cholesterol Low 38 Result Comment: 40-59 mg/dL, Acceptable >59 mg/dL, High: Negative risk factor for coronary heart disease <40 mg/dL, Low: Positive risk factor for coronary heart disease LAB LDL <100 mg/dL LDL-Cholesterol High 106 Result Comment: <100 mg/dL, Optimal 100-129 mg/dL, Near optimal/above optimal 130-159 mg/dL, Borderline high 160-189 mg/dL, High >189 mg/dL, Very high Secondary prevention optimal LDL Cholesterol levels are recommended to be < 70 mg/dL LAB NONHDL <130 mg/dL Non HDL Cholesterol 129 Result Comment: <130 mg/dL, Optimal 130-159 mg/dL, Near optimal/above optimal 160-189 mg/dL, Borderline high 190-219 mg/dL, High >219 mg/dL, Very high Secondary prevention optimal non HDL Cholesterol levels are recommended to be < 100 mg/dL LAB FT hrs Fasting Time 12 LAB VLDL <30 mg/dL VLDL Cholesterol 23 LAB TCHDL <5.10 TC:HDL Ratio 4.39 LAB LDLHDL <2.54 High LDL:HDL Ratio 2.79 Result Comment: Reference: 1. National Cholesterol Education Program ATP III Guideline At-A-Glance Quick Desk Reference: National Heart, Lung, and Blood [place]. National Institutes of Health. 2001: NIH Publication No. 01-3305. 2. An International Atherosclerosis Society position paper: global recommendations for the management of dyslipidemia: executive summary, Atherosclerosis. 2014: 232(2):410-413. Performed By: #### CBCDIF, CMP, LIPB, TSH, VITD #### [facility] [address] [place], [place] [address] TSH Collected: 03/11/2018 Status: F Source: [place] 8:[address] [facility] REPOSITORY TYPE CODE TESTS RESULT OUT OF RANGE REFERENCE UNITS LAB TSH 0.400-5.500 uU/mL TSH 5.500 Result Comment: If the patient is , TSH reference range varies by gestational period: First Trimester 0.100-2.500 uU/mL Second Trimester 0.200-3.000 uU/mL Third Trimester 0.300-3.000 uU/mL References: 1. Meade Lavell M, Mingo EK, et al. Management of Thyroid Dysfunction during and : An Endocrine Society Clinical Practice Guideline. J Clin Endocrinol Metab, 2012:97:3779-6630. 2. Bharathi DOMINGUEZ. Overview of thyroid disease in . UpToDate. 2016. Accessed on May 10, 2016. Performed By: #### CBCDIF, CMP, LIPB, TSH, VITD #### [facility] [address] [place], [place] [address] VITAMIN D 25 HYDROXY Collected: 03/11/2018 Status: F Source: [place] 8:34 AM [facility] REPOSITORY TYPE CODE TESTS RESULT OUT OF REFERENCE UNITS RANGE LAB VITD 31.0-80.0 ng/mL Low Vitamin D 25 14.6 Hydroxy Result Comment: Classification of 25 [place] Vitamin D status: Insufficiency/Moderate Deficiency: < or = 30 ng/mL Sufficiency/Optimal Levels: 31 to 80 ng/mL Toxicity: > 100 ng/mL Test performed by chemiluminescent immunoassay. Performed By: #### CBCDIF, CMP, LIPB, TSH, VITD #### [facility] [address] [place], [place] [address] PROGRESS Observed: 03/11/2018 Status: COMPLETED Source: [place] 8:02 AM [facility] REPOSITORY HNO ID: [id number] Author: Beltran Tyler Service: (none) Author Type: Nurse Practitioner Type: Progress Notes Filed: 03/11/2018 8:30 AM Note Text: Chief Complaint Patient presents with: Physical HPI Price Cardenas is a 47 year old female who presents here today for Above Complaints. Patient presents to the office for a problem visit and renewal of medication. Patient states that she has been fatigued. Has been fatigued for a few months. Has not been sleeping well. Sleep is fragmented. Has complaints of low energy. No motivation. Has not been doing any exercise recently. States that she does walk a lot at work. Patient is not on any particular diet. Rash: States that she recently got her finger nails done and has noticed it after it was completed. Pruritis is present. Location is her hands and arms. States that he finger nails are splitting. Does have a complaint of brittle nails and hair. Does have some constipation. Nasal congestion: Has been present for approximately two weeks. Does not believe that she has had any fevers. Did have some chills approximately 2 weeks ago but none. Does have post-nasal drip. Does have sinus pressure, swelling. No teeth pain. Does complain of green mucus production, bad taste in mouth. No ear pain. Does have an intermittent sore throat. Will go away with warm beverages. No cough, shortness of breath at this time. Has used OTC tylenol and cold with no improvement. GERD: Take omeprazole 20 mg daily. No reflux symptoms at this time. Doing well overall. Anxiety: Using Celexa 40 mg daily for anxiety. Has taken it for years. Doing well with anxiety. Does get an occasional anxiety attacks, but not very often. Past medical history, appointments, medications, allergies reviewed. Previous Medical History PAST MEDICAL HISTORY Diagnosis Date - Adjustment disorder with depressed mood 10/08/2007 - Anxiety - Complete tear of right rotator cuff 04/03/2016 - Non morbid obesity 04/18/2016 Previous Surgical History PAST SURGICAL HISTORY Procedure Laterality Date - ARTHROS SHLDR DX W/WO SYNV BX Right 04/19/2016 Right shoulder arthroscopy - LAP CHOLECYSTECT/CHOLANGIOGRAPHY 03-12-07 - LIGATE FALLOPIAN TUBE Tubal ligation - NOVASURE ABLATION WO HYSTREOSCOPY 2010 - REMOVE TONSILS/ADENOIDS,<12 Y/O T/A (under age 12 years) - REPAIR COMPL ROTATOR CUFF AVULSN,CHR Right 04/19/2016 Open SAD and RCR Family History FAMILY HISTORY Problem Relation Age of Onset - Allergies Mother - None Father unknown to pt - Hypertension Maternal Grandmother - Coronary Artery Disease Maternal Grandmother Patient Allergies ALLERGIES No Known Allergies Current Medications Current Outpatient Prescriptions on File Prior to Visit: omeprazole (PRILOSEC) 20 mg capsule Take 1 capsule by mouth daily before breakfast. 1/2 hr before meal. ALPRAZolam (XANAX) 0.25 mg tablet Take 1 tablet by mouth three times daily as needed for Anxiety. citalopram (CELEXA) 40 mg tablet 1 tablet once daily. No current facility-administered medications on file prior to visit. Social History Social History Marital status: Spouse name: Yi Years of education: 12 Number of children: 3 Occupational History Occupation Employer Comment [employer] Social History Main Topics Smoking status: Never Smoker Smokeless status: Never Used Alcohol use: Yes Comment: rarely Drug use: No Sexual activity: Yes Partners with: Male control/protection: Surgical Comment: bps REVIEW OF SYSTEMS: as above ? Reviewed relevant PMHx, PSHx, Social Hx, current medications and allergies. EXAM: BP 98/70 Pulse 72 Temp 36.1 ?C (96.9 ?F) (Tympanic) Ht 165.1 cm (5' 5) Wt 114.3 kg (252 lb) BMI 41.93 kg/m2 General Appearance: Well appearing, alert, in no acute distress, well-hydrated, well nourished; obese Skin: Small papules without drainage or erythema are present sporadically on the her bilateral hands, forearms and not extending past the elbow. Head: Normocephalic, no masses, lesions, tenderness or abnormalities. Eyes: Anicteric sclera. Pupils are equally round and reactive to light. Extraocular movements are intact. . Ears: External ears normal, canals clear. Nose/Sinuses: Nares normal, septum midline, mucosa normal, positive for post-nasal drip. Moderate maxillary sinus tenderness (right greater then left). Oropharynx: Lips, mucosa, and tongue normal, teeth and gums normal, oropharynx normal. Neck: Supple, no adenopathy; thyroid symmetric, normal size, no bruits. Lungs: Lungs clear to auscultation. No wheezing, rhonchi, rales. Heart: RRR without murmur, gallop, or rubs. No ectopy. Abdomen: Normal abdominal exam, Abdomen soft, non-tender. Bowel sounds normal. No masses, organomegaly. Extremities: No deformities, edema. Peripheral Pulses: Normal, Pulses: radial=4/4, dorsalis pedis=4/4, posterior tibial=4/4. Health Maintenance List LIPID SCREEN due on 01/28/2017 MAMMOGRAM due on 09/11/2018 DIABETES SCREEN due on 04/19/2020 TETANUS due on 01/28/2022 PAP EVERY 5 YEARS due on 10/09/2022 HPV EVERY 5 YEARS due on 10/09/2022 INFLUENZA Completed Data reviewed Component Latest Ref Rng AND Units 04/19/2017 WBC 3.70 - 11.00 k/uL 7.57 RBC 3.90 - 5.20 m/uL 4.76 Hemoglobin 11.5 - 15.5 g/dL 13.8 Hematocrit 36.0 - 46.0 % 42.9 MCV 80.0 - 100.0 fL 90.1 MCH 26.0 - 34.0 pG 29.0 MCHC 30.5 - 36.0 g/dL 32.2 RDW-CV 11.5 - 15.0 % 13.6 Platelet Count 150 - 400 k/uL 296 MPV 9.0 - 12.7 fL 11.9 Neut% % 63.1 Abs Neut (ANC) 1.45 - 7.50 k/uL 4.78 Lymph% % 27.9 Abs Lymph 1.00 - 4.00 k/uL 2.11 [place]% % 5.8 Abs [place] 0.00 - 0.86 k/uL 0.44 Eosin% % 2.8 Abs Eosin 0.00 - 0.45 k/uL 0.21 Baso% % 0.4 Abs Baso 0.00 - 0.10 k/uL 0.03 Nucleated Reds 0 /100 WBC 0.0 NRBC 0 /100 WBC 0 Absolute nRBC k/uL 0.00 Diff Type Auto Diff Protein, Total 6.3 - 8.0 g/dL 6.9 Albumin 3.9 - 4.9 g/dL 4.0 Calcium 8.5 - 10.2 mg/dL 8.6 Bilirubin, Total 0.2 - 1.3 mg/dL 0.4 Alkaline Phosphatase 32 - 117 U/L 80 AST 13 - 35 U/L 22 Glucose 74 - 99 mg/dL 92 BUN 7 - 21 mg/dL 12 Creatinine 0.58 - 0.96 mg/dL 0.71 Sodium 136 - 144 mmol/L 138 Potassium 3.7 - 5.1 mmol/L 4.2 Chloride 97 - 105 mmol/L 103 CO2 22 - 30 mmol/L 23 Anion Gap 9 - 18 mmol/L 12 ALT 7 - 38 U/L 14 eGFR- >60 eGFR-All Other Races . >60 Troponin T 0.000 - 0.029 ng/mL <0.010 NT Pro BNP <125 pg/mL 51 ASSESSMENT/PLAN: 1. Gastroesophageal reflux disease with esophagitis - ICD9: 530.11, ICD10: K21.0 (primary diagnosis) - Discussed lifestyle modifications including losing weight, limiting caffeine, no meals three hours before sleep and head of bed elevation - Continue treatment with Prilosec 20 mg QD - OMEPRAZOLE 20 MG CAPSULE,DELAYED RELEASE - COMP METABOLIC PANEL 2. Panic attack - ICD9: 300.01, ICD10: F41.0 - Stable, continue current medications. - CITALOPRAM 40 MG TABLET 3. Fatigue, unspecified type - ICD9: 780.79, ICD10: R53.83 - Anxiety vs metabolic. Will get labs. - CBC + DIFF - TSH BLD - VITAMIN D 25 HYDROXY - COMP METABOLIC PANEL 4. Rash - ICD9: 782.1, ICD10: R21 - Reaction to nail salon products? - TRIAMCINOLONE ACETONIDE 0.025 % TOPICAL CREAM 5. Bacterial sinusitis - ICD9: 473.9, 041.9, ICD10: J32.9, B96.89 - Will begin treatment with as per antibiotic as written, see orders - The patient should also be given OTC decongestants prn and OTC cough and cold meds as needed for the first 5-7 days of treatment. - Supportive care with plenty of fluids, rest, and analgesia prn. - AMOXICILLIN 875 MG-POTASSIUM CLAVULANATE 125 MG TABLET 6. Class 3 severe obesity due to excess calories without serious comorbidity with body mass index (BMI) of 40.0 to 44.9 in adult (HCC) - ICD9: 278.01, V85.41, ICD10: E66.01, Z68.41 - Discussed need to get 30-45 minutes of exercise daily. Advised starting with walking. - Also advised improving diet to include lean meats, fresh vegetables, fruits - Cutting out soda and other sugar containing beverages. 7. Screening for lipid disorders - ICD9: V77.91, ICD10: Z13.220 - LIPID PANEL BASIC Get labs today, will notify of results. Follow up in 6 months. Beltran Tyler APRN.RADIOPHARMACIST CNOV Observed: 03/11/2018 Status: COMPLETED Source: [place] 7:40 AM [facility] REPOSITORY [facility] PRICE CARDENAS ([id number]) 1970 F Date Time Provider Department 03/11/18 7:40 AM BELTRAN TYLER ([facility]) [facility] During your visit today, we recorded the following information about you: Temperature Pulse Blood pressure Weight 96.9 degrees 72/minute 98/70 114.3 kg Height 1.651 m Beltran Tyler APRN.CNP 03/11/2018 8:30 AM Signed Chief Complaint Patient presents with: Physical HPI Price Cardenas is a 47 year old female who presents here today for Above Complaints. Patient presents to the office for a problem visit and renewal of medication. Patient states that she has been fatigued. Has been fatigued for a few months. Has not been sleeping well. Sleep is fragmented. Has complaints of low energy. No motivation. Has not been doing any exercise recently. States that she does walk a lot at work. Patient is not on any particular diet. Rash: States that she recently got her finger nails done and has noticed it after it was completed. Pruritis is present. Location is her hands and arms. States that he finger nails are splitting. Does have a complaint of brittle nails and hair. Does have some constipation. Nasal congestion: Has been present for approximately two weeks. Does not believe that she has had any fevers. Did have some chills approximately 2 weeks ago but none. Does have post-nasal drip. Does have sinus pressure, swelling. No teeth pain. Does complain of green mucus production, bad taste in mouth. No ear pain. Does have an intermittent sore throat. Will go away with warm beverages. No cough, shortness of breath at this time. Has used OTC tylenol and cold with no improvement. GERD: Take omeprazole 20 mg daily. No reflux symptoms at this time. Doing well overall. Anxiety: Using Celexa 40 mg daily for anxiety. Has taken it for years. Doing well with anxiety. Does get an occasional anxiety attacks, but not very often. Past medical history, appointments, medications, allergies reviewed. Previous Medical History PAST MEDICAL HISTORY Diagnosis Date - Adjustment disorder with depressed mood 10/08/2007 - Anxiety - Complete tear of right rotator cuff 04/03/2016 - Non morbid obesity 04/18/2016 Previous Surgical History PAST SURGICAL HISTORY Procedure Laterality Date - ARTHROS SHLDR DX W/WO SYNV BX Right 04/19/2016 Right shoulder arthroscopy - LAP CHOLECYSTECT/CHOLANGIOGRAPHY 03-12-07 - LIGATE FALLOPIAN TUBE Tubal ligation - NOVASURE ABLATION WO HYSTREOSCOPY 2010 - REMOVE TONSILS/ADENOIDS,ANDlt;12 Y/O T/A (under age 12 years) - REPAIR COMPL ROTATOR CUFF AVULSN,CHR Right 04/19/2016 Open SAD and RCR Family History FAMILY HISTORY Problem Relation Age of Onset - Allergies Mother - None Father unknown to pt - Hypertension Maternal Grandmother - Coronary Artery Disease Maternal Grandmother Patient Allergies ALLERGIES No Known Allergies Current Medications Current Outpatient Prescriptions on File Prior to Visit: omeprazole (PRILOSEC) 20 mg capsule Take 1 capsule by mouth daily before breakfast. 1/2 hr before meal. ALPRAZolam (XANAX) 0.25 mg tablet Take 1 tablet by mouth three times daily as needed for Anxiety. citalopram (CELEXA) 40 mg tablet 1 tablet once daily. No current facility-administered medications on file prior to visit. Social History Social History Marital status: Spouse name: Yi Years of education: 12 Number of children: 3 Occupational History Occupation Employer Comment [employer] Social History Main Topics Smoking status: Never Smoker Smokeless status: Never Used Alcohol use: Yes Comment: rarely Drug use: No Sexual activity: Yes Partners with: Male control/protection: Surgical Comment: bps REVIEW OF SYSTEMS: as above ? Reviewed relevant PMHx, PSHx, Social Hx, current medications and allergies. EXAM: BP 98/70 Pulse 72 Temp 36.1 ?C (96.9 ?F) (Tympanic) Ht 165.1 cm (5' 5ANDquot;) Wt 114.3 kg (252 lb) BMI 41.93 kg/m2 General Appearance: Well appearing, alert, in no acute distress, well-hydrated, well nourished; obese Skin: Small papules without drainage or erythema are present sporadically on the her bilateral hands, forearms and not extending past the elbow. Head: Normocephalic, no masses, lesions, tenderness or abnormalities. Eyes: Anicteric sclera. Pupils are equally round and reactive to light. Extraocular movements are intact. . Ears: External ears normal, canals clear. Nose/Sinuses: Nares normal, septum midline, mucosa normal, positive for post-nasal drip. Moderate maxillary sinus tenderness (right greater then left). Oropharynx: Lips, mucosa, and tongue normal, teeth and gums normal, oropharynx normal. Neck: Supple, no adenopathy; thyroid symmetric, normal size, no bruits. Lungs: Lungs clear to auscultation. No wheezing, rhonchi, rales. Heart: RRR without murmur, gallop, or rubs. No ectopy. Abdomen: Normal abdominal exam, Abdomen soft, non-tender. Bowel sounds normal. No masses, organomegaly. Extremities: No deformities, edema. Peripheral Pulses: Normal, Pulses: radial=4/4, dorsalis pedis=4/4, posterior tibial=4/4. Health Maintenance List LIPID SCREEN due on 01/28/2017 MAMMOGRAM due on 09/11/2018 DIABETES SCREEN due on 04/19/2020 TETANUS due on 01/28/2022 PAP EVERY 5 YEARS due on 10/09/2022 HPV EVERY 5 YEARS due on 10/09/2022 INFLUENZA Completed Data reviewed Component Latest Ref Rng ANDamp; Units 04/19/2017 WBC 3.70 - 11.00 k/uL 7.57 RBC 3.90 - 5.20 m/uL 4.76 Hemoglobin 11.5 - 15.5 g/dL 13.8 Hematocrit 36.0 - 46.0 % 42.9 MCV 80.0 - 100.0 fL 90.1 MCH 26.0 - 34.0 pG 29.0 MCHC 30.5 - 36.0 g/dL 32.2 RDW-CV 11.5 - 15.0 % 13.6 Platelet Count 150 - 400 k/uL 296 MPV 9.0 - 12.7 fL 11.9 Neut% % 63.1 Abs Neut (ANC) 1.45 - 7.50 k/uL 4.78 Lymph% % 27.9 Abs Lymph 1.00 - 4.00 k/uL 2.11 [place]% % 5.8 Abs [place] 0.00 - 0.86 k/uL 0.44 Eosin% % 2.8 Abs Eosin 0.00 - 0.45 k/uL 0.21 Baso% % 0.4 Abs Baso 0.00 - 0.10 k/uL 0.03 Nucleated Reds 0 /100 WBC 0.0 NRBC 0 /100 WBC 0 Absolute nRBC k/uL 0.00 Diff Type Auto Diff Protein, Total 6.3 - 8.0 g/dL 6.9 Albumin 3.9 - 4.9 g/dL 4.0 Calcium 8.5 - 10.2 mg/dL 8.6 Bilirubin, Total 0.2 - 1.3 mg/dL 0.4 Alkaline Phosphatase 32 - 117 U/L 80 AST 13 - 35 U/L 22 Glucose 74 - 99 mg/dL 92 BUN 7 - 21 mg/dL 12 Creatinine 0.58 - 0.96 mg/dL 0.71 Sodium 136 - 144 mmol/L 138 Potassium 3.7 - 5.1 mmol/L 4.2 Chloride 97 - 105 mmol/L 103 CO2 22 - 30 mmol/L 23 Anion Gap 9 - 18 mmol/L 12 ALT 7 - 38 U/L 14 eGFR- ANDgt;60 eGFR-All Other Races . ANDgt;60 Troponin T 0.000 - 0.029 ng/mL ANDlt;0.010 NT Pro BNP ANDlt;125 pg/mL 51 ASSESSMENT/PLAN: 1. Gastroesophageal reflux disease with esophagitis - ICD9: 530.11, ICD10: K21.0 (primary diagnosis) - Discussed lifestyle modifications including losing weight, limiting caffeine, no meals three hours before sleep and head of bed elevation - Continue treatment with Prilosec 20 mg QD - OMEPRAZOLE 20 MG CAPSULE,DELAYED RELEASE - COMP METABOLIC PANEL 2. Panic attack - ICD9: 300.01, ICD10: F41.0 - Stable, continue current medications. - CITALOPRAM 40 MG TABLET 3. Fatigue, unspecified type - ICD9: 780.79, ICD10: R53.83 - Anxiety vs metabolic. Will get labs. - CBC + DIFF - TSH BLD - VITAMIN D 25 HYDROXY - COMP METABOLIC PANEL 4. Rash - ICD9: 782.1, ICD10: R21 - Reaction to nail salon products? - TRIAMCINOLONE ACETONIDE 0.025 % TOPICAL CREAM 5. Bacterial sinusitis - ICD9: 473.9, 041.9, ICD10: J32.9, B96.89 - Will begin treatment with as per antibiotic as written, see orders - The patient should also be given OTC decongestants prn and OTC cough and cold meds as needed for the first 5-7 days of treatment. - Supportive care with plenty of fluids, rest, and analgesia prn. - AMOXICILLIN 875 MG-POTASSIUM CLAVULANATE 125 MG TABLET 6. Class 3 severe obesity due to excess calories without serious comorbidity with body mass index (BMI) of 40.0 to 44.9 in adult ([facility]) - ICD9: 278.01, V85.41, ICD10: E66.01, Z68.41 - Discussed need to get 30-45 minutes of exercise daily. Advised starting with walking. - Also advised improving diet to include lean meats, fresh vegetables, fruits - Cutting out soda and other sugar containing beverages. 7. Screening for lipid disorders - ICD9: V77.91, ICD10: Z13.220 - LIPID PANEL BASIC Get labs today, will notify of results. Follow up in 6 months. Beltran Tyler APRN.RADIOPHARMACIST Referring Provider: YI BOLTON [[id number]] Allergies As of Date: 03/11/2018 (No Known Allergies) Date Reviewed: 03/11/2018 Reviewed by: Beltran ([facility]) Sachin - Fully Assessed Reason for Visit: Physical [83] Primary Visit Diagnosis:Gastroesophageal reflux disease with esophagitis [K21.0] Other Visit Diagnoses:Panic attack [F41.0] Fatigue, unspecified type [R53.83] Rash [R21] Bacterial sinusitis [J32.9, B96.89] Class 3 severe obesity due to excess calories without serious comorbidity with body mass index (BMI) of 40.0 to 44.9 in adult ([facility]) [E66.01, Z68.41] Screening for lipid disorders [Z13.220] Order(s):omeprazole (PRILOSEC) 20 mg capsuleTake 1 capsule by mouth daily before breakfast. 1/2 hr before meal.Disp: 30 capsuleRfl: 11 citalopram (CELEXA) 40 mg tablet1 tablet once daily.Disp: 30 tabletRfl: 11 triamcinolone (KENALOG) 0.025 % creamApply 1 application to affected area twice daily. Until goneDisp: 15 gRfl: 2 CBC + DIFF [SQCBCDIF] Order #: [id number] FUTURE TSH BLD [SQTSH] Order #: [id number] FUTURE VITAMIN D 25 HYDROXY [SQVITD] Order #: [id number] FUTURE COMP METABOLIC PANEL [SQCMP] Order #: [id number] FUTURE LIPID PANEL BASIC [SQLIPB] Order #: [id number] FUTURE amoxicillin-clavulanic acid (AUGMENTIN) 875-125 mg per tabletTake 1 tablet by mouth twice daily for 10 days.Disp: 20 tabletRfl: 0 Prescriptions as of 03/11/2018 Sig: ALPRAZOLAM 0.25 MG TABLET Take 1 tablet by mouth three * OMEPRAZOLE 20 MG CAPSULE,HORTENCIA* Take 1 capsule by mouth daily* CITALOPRAM 40 MG TABLET 1 tablet once daily. TRIAMCINOLONE ACETONIDE 0.025* Apply 1 application to affect* AMOXICILLIN 875 MG-POTASSIUM * Take 1 tablet by mouth twice * Problem List As Of Date 03/11/2018 Noted Resolved SKIN DISORDERS NEC [L98.8] INVALID FOR* ADJUSTMENT DISORDER WITH DEPRESSED MOOD [F43.21]INVALID FOR* Panic attack [F41.0] INVALID FOR* Anxiety [F41.9] INVALID FOR* Mammographic microcalcification [R92.0] INVALID FOR* Complete tear of right rotator cuff [M75.121] INVALID FOR* Non morbid obesity [E66.9] INVALID FOR* Acute pain of right shoulder [M25.511] INVALID FOR* Weakness of shoulder [R29.898] INVALID FOR* Prescriptions ordered this encounter Disp Refills Start End OMEPRAZOLE 20 MG CAPSULE,DELAYED REL* 30 c* 11 03/11/2018 Route: ORAL Sig: Take 1 capsule by mouth daily before breakfast. 1/2 hr before meal. CITALOPRAM 40 MG TABLET 30 t* 11 03/11/2018 Route: OTHER Si tablet once daily. TRIAMCINOLONE ACETONIDE 0.025 % TOPI* 15 g 2 03/11/2018 Route: TOPICAL Sig: Apply 1 application to affected area twice daily. Until gone AMOXICILLIN 875 MG-POTASSIUM CLAVULA* 20 t* 0 03/11/2018 03/21/2018 Route: ORAL Sig: Take 1 tablet by mouth twice daily for 10 days. Medications Discontinued During This Encounter omeprazole (PRILOSEC) 20 mg capsule 30 c* 1 09/02/2017 03/11/2018 Route: ORAL Sig: Take 1 capsule by mouth daily before breakfast. 1/2 hr before meal. Disc: Reason for discontinue is not on file. citalopram (CELEXA) 40 mg tablet 30 t* 11 04/18/2017 03/11/2018 Route: OTHER Si tablet once daily. Disc: Reason for discontinue is not on file. Disposition: Return in about 6 months (around 09/10/2018) for routine follow up . Follow-up and Disposition History Recorded Encounter Status:Closed by BELTRAN TYLER CNP on 03/11/18 ALLERGIES ALLERGIES DATE TYPE / CODE NAME / CODE REACTION SEVERITY SOURCE 01/02/2017 Drug No Known Unknown Nadir Allergy/126963493(S Allergies/F0019 [facility] [place]) [address](RXNORM) Hospital Repository Miscellaneous No Known Drug Moderate Ponce [place] Allergy/941801839(S Allergies (Severity [facility]) Modifier) [facility] (Qualifier Repository Value) Drug NO KNOWN [place] Class/327194501(SNO ALLERGIES [facility] Main [facility]) [place] Repository ENCOUNTERS ENCOUNTERS ADMIT/DISCHARGE ACCOUNT ADMITTING ENCOUNTER LOCATION SOURCE NUMBER CLASS 11/11/2018 [id number] Ambulatory BMSBuilding:Nick Schmitz [facility] Repository 10/30/2018/11/02/20 [id number] Ambulatory [address] Repository 10/26/2018 [id number] Ambulatory [facility] ing:BIRAD Repository 10/12/2018/10/20/20 [id number] Ambulatory [address] Repository 10/07/2018/10/07/20 [id number] Ambulatory [address] Repository 09/21/2018/09/23/20 [id number] Ambulatory [address] Repository 09/17/2018/09/17/20 [id number] Ambulatory [address] Repository 09/10/2018/09/11/20 [id number] Ambulatory [address] Repository 08/05/2018/08/05/20 [id number] ARIEL YAÑEZ Emergency BuildinR Ponceviviana Castanonerica 19 DO oom: ERBed: G [facility] Repository 08/04/2018/08/04/20 [id number] Emergency [address] ing:ED Repository 07/23/2018/07/24/20 [id number] Ambulatory [address] Repository 07/22/2018/07/23/20 [id number] Ambulatory [address] Repository 07/07/2018/07/09/20 [id number] ADALGISA LACKEY Ambulatory BuildinR Ponce Araujo MD oom: [address] [place] [address] Repository 04/28/2018/04/29/20 [id number] Ambulatory [address] Repository 04/23/2018/04/24/20 [id number] Ambulatory [address] Repository 03/11/2018/03/11/20 [id number] Ambulatory [address] Repository 03/11/2018/03/12/20 [id number] Ambulatory [address] Repository PAYERS PAYERS ENCOUNTER GUARANTOR PAYER SUBSCRIBER SOURCE 11/11/2018 SELEANA L Primary SELEANA L [place] [id number] Insurance:ANTHEMPolicy SEARLSDOB: [facility] Number: [id number] [id number] [place]ository [place] [address]Qpo: Date:8812-94-92[address] [place] [address]) [address]ZF: 11/11/2018 Secondary NOT GIVENUNK Nadir Insurance:SELF PAY [facility], [place]) Number: Effective Repository Date:2018-11-11 10/26/2018 SELEANA L Primary SELEANA L [place] [id number] Insurance:ANTHEMPolicy SEARLSDOB: [facility] Number: [id number], [id number] Repository [place] [address]Hjd: Date:7679-78-12XJ [address] [address]EQ: 10/26/2018 Secondary NOT GIVENUNK Nadir Insurance:SELF PAY [facility] ([place], [place]) Number: Effective Repository Date:2018-10-12 08/05/2018 RIAEANA Primary PRICE oPnce Echeverria SEARLSDOB: Insurance:ANTHEM BLUE SEARLSDOB: [facility] [id number] [place] [address] [facility] Repository [facility], Number: [facility] CENTERSUJATAAthena, [place] [id number] [id number]: Date:Plan Name:B2 () 08/04/2018 SELNELSON L Primary SELNELSON Malloy Nadir [id number] [facility] Number: [id number] [facility], [id number] Repository [place] [address]Kmq: Date:8411-81-29YT [address], [place] () [address]XY: 08/04/2018 Secondary NOT GIVENUNK [place] Insurance:SELF PAY [facility] ([place], [place]) Number: Effective Repository Date:2018-08-04 07/07/2018 SELEANA Primary RIAEAJOSE Matosdeneen SEARLSDOB: Insurance:ANTHEM BLUE SEARLSDOB: [facility] CROSS COMMERCIAL [id number] [facility] Repository [facility], Number: [place], [place] [id number] [place] [id number]: Date:Plan Name: ()
== END ==
PROVIDERS: Family Provider Family Medicine; PCP Family Medicine; Visit Provider Surgery
DX: R92.1 Mammographic calcification found on diagnostic imaging of breast (principal); F43.21 Adjustment disorder with depressed mood; F41.9 Anxiety disorder, unspecified; E66.01 Morbid (severe) obesity due to excess calories; Z87.442 Personal history of urinary calculi
CPT/HCPCS: 19081; 88305; J7050; A4648

== ENCOUNTER → 2018-11-11 17:16 | Outpatient (CLI) | payer BC, SELFPAY ==
[2018-11-11 13:05] VITALS: BMI 43.2
[2018-11-16 12:37] LABS: HPV APTIMA, High Risk Negative (Negative)
== END ==
PROVIDERS: Family Provider Family Medicine; PCP Family Medicine; Referring Provider Obstetrics & Gynecology; Visit Provider Obstetrics & Gynecology
DX: Z12.4 Encounter for screening for malignant neoplasm of cervix (principal)
CPT/HCPCS: 87624; 88175; G0145

== ENCOUNTER → 2019-01-18 12:29 | Outpatient (CLI) | payer BC, SELFPAY ==
[2019-01-05 12:09] VITALS: BMI 43.2
--- NOTE | 2019-01-18 12:30 | US_ITS ---
STUDY: ULTRASOUND OF THE FEMALE PELVIS - COMPLETE REASON FOR EXAM: Female, 48 years old. Recurring right-sided pelvic pain. History of endometrial ablation 8 years ago. Now having menses. TECHNIQUE: Transabdominal and transvaginal pelvic ultrasound. (Transvaginal imaging, if present, was performed for enhanced visualization of uterus and endometrium, and posterior adnexal structures). COMPARISON: None. FINDINGS: The uterus is anteverted in the midline measuring 9.5 x 4.9 x 5.4 cm. In the transitional zone of the endometrium, there are heterogeneous sonographic features of the soft tissues, with multiple small speckled calcifications. The largest calcification measures 5.5 mm. These features are suspicious for adenomyosis. It is difficult to separate this process entirely from the endometrial canal. Difficult to exclude some heterogeneity and thickening of the endometrium just peripheral to the central echogenic stripe. The central endometrial stripe measures approximately 6.1 mm, echogenic features. Cervical nabothian cysts are present. Mildly complex features of the endometrial canal in the lower uterine segment, heterogeneous echotexture, a small amount of fluid. The right ovary measures 31 x 16 x 20 mm and the left ovary 63 x 27 x 27 mm. Each is normal in echotexture with appropriate vascular flow. There is a septated left ovarian cyst measuring 3.2 x 2.4 x 3.0 cm. This may represent a simple cyst containing a daughter cyst. Cyst wall and septation thin. No other complex features. There is no suspicious left or right adnexal mass or cyst. There is no adnexal or cul-de-sac free fluid. US/Transvaginal Non- IMPRESSION: Heterogeneity and calcifications within the transitional zone of the endometrium in the fundus. Suspicious for adenomyosis. The fundal endometrial stripe is slender. More complex features are seen in the endometrium in the lower uterine segment. Mild thickening, fluid or cystic changes. Right ovarian cyst, grossly simple cystic features, probably representing a dominant follicle containing daughter cyst. Crit is dimension over 3 cm. Follow-up is recommended to ensure appropriate cyclical resolution. Regarding the features of the myometrium and endometrium, malignancy has not been excluded. A follow-up contrast-enhanced MRI of the uterus is recommended for better characterization of the possible adenomyosis and apparent abnormal thickening of the endometrium in the lower uterine segment. Electronically Signed: Jer Snell MD at 17:35 EST Tel , Service support ,
== END ==
PROVIDERS: Family Provider Family Medicine; PCP Family Medicine; Referring Provider Obstetrics & Gynecology; Visit Provider Obstetrics & Gynecology
DX: N94.6 Dysmenorrhea, unspecified (principal)
CPT/HCPCS: 76830; 93976

== ENCOUNTER → 2022-10-28 | Outpatient (CLI) | payer MEDICAID, SELFPAY ==
--- NOTE | 2022-10-28 13:13 | MRI_ITS ---
STUDY: MRI LUMBAR SPINE WITHOUT CONTRAST REASON FOR EXAM: Female, 52 years old. pain, LEFT LEG PAIN TECHNIQUE: Standardized fat and water weighted pulse sequences were obtained in the sagittal and axial planes. COMPARISON: Lumbar spine radiographs 10/02/2022. FINDINGS: Alignment anatomic. No fracture or concerning vertebral lesions. Incidental benign hemangioma in the right upper posterior aspect of the L1 vertebral body. Mild degenerative endplate signal changes on the right at L5-S1. Mild disc desiccation lower lumbar spine. Discs and ligaments intact. CONUS terminates at the level of the L1 inferior endplate with normal contour and signal. At L1-2, small diffuse disc bulge causes no significant narrowing. At L2-3, L3-4, and L4-5 mild bilateral facet degeneration causes no significant narrowing. At L5-S1, broad-based disc bulge with underlying osteophytes, greater on the right, extends into a moderately narrows right foramen, indenting the exiting right L5 nerve root. No significant narrowing of the spinal canal or left foramen. Paraspinal soft tissues unremarkable. MRI/Spine Lumbar (Routine) IMPRESSION: Mild degenerative changes most prominent at L5-S1 where there is some mass effect upon the exiting right L5 nerve root in the right foramen. No etiology for left-sided radiculopathy is evident. Electronically Signed: Herb Khan MD at 22:54 EST Reading Location ID and State: [address] [place] [address] Tel , Service support ,
== END | disposition home or self-care (01) ==
LOC: MRI 13:13
PROVIDERS: PCP Family Medicine; Referring Provider Orthopaedic Surgery; Visit Provider Orthopaedic Surgery
DX: M54.50 Low back pain, unspecified (principal)
CPT/HCPCS: 72148

== ENCOUNTER 2025-06-20 13:03 | Emergency (ER) | payer OTHER, SELFPAY ==
[2025-06-20 13:04] VITALS: BP 130/87; PULSE 86; RESP 18; TEMP 36.8; O2SAT 98; BMI 41.5
[2025-06-20 14:50] LABS: Mucous, Urine 0 SEEN /hpf (<or=2+); Red Blood Cells-Urine 0 SEEN /hpf (0-5); Squamous Epithelial Cells - UA 0 SEEN /hpf (5-10)
[2025-06-20 14:51] LABS: Color, Urine Yellow (Yellow); Glucose, Dipstick Normal (Normal); Ketone-Dipstick Negative (Negative); Leukocyte Esterase-Dipstick 25 /ul (Negative); Nitrite-Dipstick Negative (Negative); Occult Blood-Urine Negative /ul (Negative); Protein-Dipstick 15 mg/dl (Negative); Specific Gravity, Urine 1.015 (1.002-1.030); Urine Bilirubin Dipstick Negative (Negative)
[2025-06-20 14:58] LABS: Hematocrit 43.9 % (37-47); Hemoglobin 14.7 g/dL (12.0-15.0); Immature Granulocytes Count 0.030 X10^3/uL (0.0-0.0); Mean Corp Hgb Conc 33.5 g/dL (32-36); Mean Corpuscular Volume 86.1 fL (81-99); Mean Platelet Vol. 11.0 fl (6.2-12.0); NRBC Flagged by Analyzer 0 % (0-5); Platelet Count 281 K/mm3 (150-450); RBC Distribution Width CV 13.2 % (11.6-14.6); RBC Distribution Width SD 41.2 fl (35.1-43.9); Red Blood Count 5.10 M/mm3 (4.2-5.4); White Blood Count 7.3 K/mm3 (4.4-11.0)
[2025-06-20 15:25] VITALS: BP 140/105; PULSE 71; RESP 18; O2SAT 100
--- NOTE | 2025-06-20 15:26 | CT_ITS ---
PROCEDURE: ABDOMEN/PELVIS WITHOUT CONT 06/20/2025 REASON FOR EXAM: Right-sided abdominal pain x3 days. Urinary hesitancy/retention. TECHNIQUE: ABDOMEN/PELVIS WITHOUT CONT Noncontrast technique limits evaluation of the abdominal and pelvic viscera. Coronal and Sagittal reconstruction series were provided. One or more dose reduction techniques were used (e.g., Automated exposure control, adjustment of the mA and/or kV according to patient size, use of iterative reconstruction technique). RADIATION DOSE SUMMARY: CTDlvol: 23.94 mGy DLP: 1256.26 mGycm COMPARISON: None. FINDINGS: Lung bases: Clear. Liver: No significant abnormality. Gallbladder: Surgically absent. No biliary ductal dilatation. Spleen: Normal size and morphology. Pancreas: Unremarkable. Adrenals: Unremarkable. Kidneys: Unremarkable. No urinary tract calculi or hydroureteronephrosis. No periureteric/perinephric fat stranding or edema to suggest a recently passed stone. Bladder: Unremarkable, no bladder calculus is seen. No pericystic inflammatory changes. Reproductive Organs: Unremarkable uterus and adnexae. Multiple pelvic phleboliths. Bowel: Small hiatal hernia. Otherwise unremarkable stomach and small bowel. No evidence of obstruction. Normal appendix. Mild scattered colonic diverticulosis without evidence for active diverticulitis/colitis. Lymph nodes: No enlarged abdominopelvic lymph nodes. There is a circumscribed hyperdense nodular lesion measuring 3.1 x 2.2 x 1.9 cm (AP, TV, CC) just anterior to the tip of the distal sacrum/coccyx, indeterminate but likely benign. Differential includes a retrorectal tailgut cyst/hamartoma, dermoid/epidermoid/neurenteric cyst, or a neurogenic tumor. Vasculature: Abdominal aorta is normal in caliber. Mild atherosclerotic disease. Peritoneum / Retroperitoneum: No ascites or free air. Bones: No acute or aggressive osseous abnormality. Mild degenerative changes of the spine. CT/Abdomen/Pelvis without Cont IMPRESSION: No acute or active inflammatory intra-abdominal pathology. No urolithiasis or hydroureteronephrosis on either side. Unremarkable bladder. Reading Location: [id number]
--- NOTE | 2025-06-20 15:27 | EX.ED.DYSGE1 ---
HPI History of Present Illness Chief Complaint: Complaint Informant: patient Narrative Narrative: Nontraumatic right lower flank pain for last 3 days nausea without vomiting. Hesitancy however no dysuria. No fever or chills. History of multiple kidney stones last time a year ago with no interventions. She is seeing urology and admitted at [facility]. Does not currently follow urology outside of here. Tylenol Motrin taken on Friday. None taken since. No history of gastric ulcers or kidney injury. Denies any allergies. Prior similar symptoms: Yes PFSH PFSH Medical History Anxiety and depression Home Medications ?Medication ?Instructions ?Recorded ?Last Taken ?Type acetaminophen 500 mg capsule 1,000 mg PO Q6H PRN pain 06/20/25 06/20/25 History diphenhydramine 25 2 tab PO Q6H PRN fever or pain, 06/20/25 06/19/25 History mg-acetaminophen 500 mg tablet sleep (Acetaminophen PM) hydrocodone-acetaminophen 5-325mg 1 tab PO Q6H PRN PRN Pain 3 days 06/20/25 Unknown Rx 5mg-325mg #10 TABLETS ibuprofen 200 mg tablet (Advil) 400 mg PO Q6H PRN fever or pain 06/20/25 Unknown History ibuprofen 600 mg tablet 600 mg PO Q6H PRN PRN pain #20 06/20/25 Unknown Rx TABLETS Allergy/AdvReac Type Severity Reaction Status Date / Time No Known Allergies Allergy Verified 06/20/25 13:05 Surgical History H/O breast biopsy Hx of cholecystectomy History of rotator cuff surgery novasure ablation History of tubal ligation Social History Smoking Status: Never smoker alcohol intake: never substance use type: does not use caffeine: Yes what type of physical activity do you participate in: walking seatbelt use: always do you feel safe at home: Yes additional social history: single- works at [employer] ROS ED Constitutional Constitutional ED: Denies fever(s) Cardiovascular Cardiovascular: Denies chest pain Respiratory/Chest Respiratory/Chest: Denies cough Gastrointestinal Gastrointestinal: Reports nausea; Denies diarrhea or vomiting Genitourinary Genitourinary ED: Denies dysuria, hematuria or urinary frequency Musculoskeletal Musculoskeletal: Reports back pain; Denies none Integumentary Denies rash or wounds Neurologic Neurologic: Denies weakness EXAM Physical Exam Const Vital Signs: 06/20/25 13:04 06/20/25 15:25 06/20/25 16:31 Temperature 98.3 F 97.7 F L Temperature Source Oral Oral Pulse Rate 86 71 64 Respiratory Rate 18 18 18 Blood Pressure 130/87 H 140/105 H 126/82 H Blood Pressure Mean 101 116 96 Pulse Ox 98 100 100 Oxygen Delivery Method Room Air Room Air Room Air 06/20/25 17:00 06/20/25 18:14 Temperature 97.7 F L Temperature Source Pulse Rate 80 80 Respiratory Rate 18 18 Blood Pressure 130/89 H 137/88 H Blood Pressure Mean 102 104 Pulse Ox 100 100 Oxygen Delivery Method Room Air Positive well nourished and well developed General Appearance ED: well developed and NAD HEENT Reports moist mucous membranes normocephalic and atraumatic Eyes General Eye ED: Yes normal appearance of both eyes Neck full ROM Chest Wall Chest: Negative for tenderness Resp normal respiratory effort and normal air movement Effort and Inspection: symmetric chest movement; Negative for respiratory distress Cardio regular rate, regular rhythm and no murmurs Peripheral Pulses: pulses 2+ throughout GI normal to inspection, nondistended, normoactive bowel sounds and non-tender Palpation: Negative for guarding or rebound tenderness present Narrative: Lumbar tenderness right side. No rash. Extremity normal to inspection General Extremety ED: Negative for edema or tenderness General Extremity: Negative for edema Neuro oriented x3 and no sensory deficits noted Sensorium / Orientation: awake and alert Skin no rashes or lesions noted and no wounds MDM MDM MDM Narrative Medical decision making narrative: Interventions / MDM: Differential diagnosis: Flank pain, musculoskeletal Diagnosis considered but do not suspect: Kidney stone however CT negative. My EKG interpretation: N/A Imaging independently reviewed and interpreted by myself: CT abdomen and pelvis: No acute process did note cystic structure near the coccyx 3 cm. External documents reviewed: N/A Test considered but not ordered:N/A ED course: Symptoms presenting similar to kidney stone in the past. Nontraumatic back pain. No urinary symptoms. Labs and urine collected in triage. IV was established. Fluids Zofran Toradol will obtain CT abdomen pelvis for further evaluation. Additional morphine given for pain control and CT was pending. Labs are stable urine no blood. CT results negative for any kidney stones however noted a 3 cm cystlike structure near the coccyx. Patient had CTs at outside facility from her previous imagings however discussed this with patient she was unaware of this. Per radiology likely benign however neurogenic tumor was in the differential per radiology. I discussed this with the patient, still image folder was sent with the patient. She will follow-up with her PCP for further testing as needed. Prescription for pain control sent to her pharmacy. All questions were answered. Re-evaluation: stable Disposition discussed with patient/family/significant other: Patient Case discussed with consulting clinician: N/A This note was generated with [employer] dictation software. It may contain incorrect words, spelling, and punctuation that were not noted in checking the note before signing. Lab Data Attestation: I reviewed the patient's lab results. Labs: Laboratory Results - last 24 hr 06/20/25 06/20/25 11:40 14:45 WBC 7.3 RBC 5.10 Hgb 14.7 Hct 43.9 MCV 86.1 MCH 28.8 MCHC 33.5 RDW Std Deviation 41.2 RDW Coeff of Faraz 13.2 Plt Count 281 MPV 11.0 Immature Gran % (Auto) 0.400 Neut % (Auto) 61.1 Lymph % (Auto) 31.9 [place] % (Auto) 4.8 Eos % (Auto) 1.4 Baso % (Auto) 0.4 Absolute Neuts (auto) 4.5 Absolute Lymphs (auto) 2.33 Nucleated RBC % 0 Sodium 140 Potassium 4.0 Chloride 103 Carbon Dioxide 23.4 Anion Gap 13 BUN 15 Creatinine 0.76 Estim Creat Clear Calc 103.71 Est GFR (MDRD) Non-Af 94 BUN/Creatinine Ratio 20.0 Glucose 91 Calcium 9.4 Total Bilirubin 0.37 AST 32 ALT 25 Alkaline Phosphatase 77 Total Protein 7.4 Albumin 4.4 Globulin 2.9 Albumin/Globulin Ratio 1.5 Urine Color Yellow Urine Clarity Clear Urine pH 6.0 Ur Specific [place] 1.015 Urine Protein 15 H Urine Glucose (UA) Normal Urine Ketones Negative Urine Occult Blood Negative Urine Nitrite Negative Urine Bilirubin Negative Urine Urobilinogen Normal Ur Leukocyte Esterase 25 H Urine RBC 0 SEEN Urine WBC 0 SEEN Ur Squamous Epith Cells 0 SEEN Urine Bacteria 0 SEEN Urine Mucus 0 SEEN Radiography Diagnostic Testing: Clinical Impression(s) from Imaging Studies Abdomen/Pelvis CT 06/20/25 15:26 IMPRESSION: No acute or active inflammatory intra-abdominal pathology. No urolithiasis or hydroureteronephrosis on either side. Unremarkable bladder. Reading Location: [facility] Discharge Plan Triage Chief Complaint: Complaint ED Provider: Jarrod Stern Dx/Rx/DC Orders Clinical Impression: Right flank pain, Cyst near coccyx Instructions: ED Flank Pain, Uncertain Cause Prescriptions: New hydrocodone-acetaminophen 5-325 mg tablet 1 tab PO Q6H PRN PRN (Reason: Pain) 3 Days Qty: 10 0RF ibuprofen 600 mg tablet 600 mg PO Q6H PRN PRN (Reason: pain) Qty: 20 0RF No Action diphenhydramine-acetaminophen [Acetaminophen PM] 25-500 mg tablet 2 tab PO Q6H PRN (Reason: fever or pain, sleep) acetaminophen 500 mg capsule 1,000 mg PO Q6H PRN (Reason: pain) ibuprofen [Advil] 200 mg tablet 400 mg PO Q6H PRN (Reason: fever or pain) Stand Alone Forms: ED Work / School Excuse Primary Care Provider: Byron Enriquez Referrals: Byron Enriquez MD [Primary Care Provider] - 1-2 Weeks Activity Restrictions/Additional Instructions: Your CT scan negative for any kidney stones. Lab work stable. Your CT scan did note a cystlike structure near your coccyx which was do not feel 3 cm. Likely benign however reported neurogenic tumor is in the differential. Follow-up with your doctor for this for further testing as needed. Take pain medicines as prescribed. Print Language: Albanian Disposition Disposition: Home, Self Care Discharge Date/Time: 06/20/25 18:16
[2025-06-20] MEDS: 0.9% Normal Saline (1000mL) 1,000 ML 250 ML IV (15:39)
[2025-06-20 16:31] VITALS: BP 126/82; PULSE 64; RESP 18; TEMP 36.5; O2SAT 100
[2025-06-20 17:00] VITALS: BP 130/89; PULSE 80; RESP 18; O2SAT 100
[2025-06-20 17:52] LABS: AST(SGOT) 32 U/L (<=31); Alanine Aminotransfer ALT/SGPT 25 U/L (<=34); Albumin, Serum 4.4 g/dL (3.5-5.0); Alkaline Phosphatase 77 U/L (35-104); Anion Gap 13 (5-15); BUN 15 mg/dL (4-19); BUN/Creat Ratio 20.0 RATIO (10-20); Calcium,Total 9.4 mg/dL (7.6-11.0); Carbon Dioxide 23.4 mmol/L (21.0-32.0); Chloride 103 mmol/L (98-108); Estimated Creatinine Clearance 103.71 ml/min (50-250); Globulin 2.9 g/dL (2.2-4.2); Glucose 91 mg/dL (70-99); Potassium 4.0 mmol/L (3.3-5.1)
[2025-06-20 18:14] VITALS: BP 137/88; PULSE 80; RESP 18; TEMP 36.5; O2SAT 100
== END 2025-06-20 18:16 | disposition home or self-care (01) ==
PROVIDERS: Emergency Provider Emergency Medicine; PCP Family Medicine; Visit Provider Emergency Medicine
DX: R10.9 Unspecified abdominal pain (principal); Z90.49 Acquired absence of other specified parts of digestive tract; Z98.51 Tubal ligation status; L98.8 Other specified disorders of the skin and subcutaneous tissue
CPT/HCPCS: 74176; 80053; 81001; 85025; 96361; 96374; 96375; 99283; A4216